=== PATIENT | female | born 1945 | race Asian ===

== ENCOUNTER 2017-01-31 20:35 | Inpatient (IN) | payer MEDICARE, MEDICAID ==
[~2017-01-31] VITALS: Ht 154.9 cm; Wt 66.3 kg
[2017-01-31] MEDS ORDERED: OMEPRAZOLE20 M3 ORAL (21:12)
[2017-01-31] MEDS ORDERED: DULCOLAX10 MG RC (21:12)
[2017-01-31] MEDS ORDERED: NEURONTIN600 MG ORAL (21:12)
[2017-01-31] MEDS ORDERED: SENOKOT8.6 MG PO (21:12)
[2017-01-31] MEDS ORDERED: MILK OF MA400 MG/51 ORAL (21:12)
[2017-01-31] MEDS ORDERED: NORCO 5-325 TA1 EACH ORAL (21:12)
[2017-01-31] MEDS ORDERED: POTASSIUM CHLO10 MEQ ORAL (21:12)
[2017-01-31] MEDS ORDERED: ACETAMINOPHEN325 M1 ORAL (21:12)
[2017-01-31] MEDS ORDERED: COLACE100 MG ORAL (21:12)
[2017-01-31] MEDS ORDERED: ELIQUIS5 MG PO (21:12)
[2017-01-31] MEDS ORDERED: LASIX20 M1 ORAL (21:12)
[2017-01-31] MEDS ORDERED: NORCO 10-325 T1 EACH ORAL (21:12)
[2017-01-31 21:30] VITALS: BP 101/70
[2017-01-31] MEDS ORDERED: D5NS 1,000 ML IV SCH (21:30)
[2017-01-31 21:36] LABS: MEAN CORPUSCULAR HEMOGLOBIN 30.7 PG (27.0-31.0); MEAN CORPUSCULAR HGB CONC 30.4 G/DL (32.0-36.0); MEAN CORPUSCULAR VOLUME 101 FL (80-99); PLATELET COUNT 92 K/UL (150-450); RED BLOOD COUNT 3.42 M/UL (4.20-5.40); RED CELL DISTRIBUTION WIDTH 20.9 % (11.6-14.8); WHITE BLOOD COUNT 19.2 K/UL (4.8-10.8)
[2017-01-31 22:20] LABS: LYMPHOCYTES % (MANUAL) 1 % (20-45); NEUTROPHILS % (MANUAL) 98 % (45-75); TOTAL CELLS COUNTED 100
[2017-01-31 22:21] LABS: BAND NEUTROPHILS % (MANUAL) 0 % (0-8); BASOPHILS % (MANUAL) 0 % (0-2); EOSINOPHILS % (MANUAL) 0 % (0-3); PLATELET ESTIMATE DECREASED
[2017-01-31 22:23] LABS: ANISOCYTOSIS 3+; MACROCYTES 3+; POLYCHROMASIA 1+
[2017-01-31 22:24] LABS: PLATELET MORPHOLOGY NORMAL
[2017-01-31 22:30] LABS: ALANINE AMINOTRANSFERASE 11 U/L (12-78); ALBUMIN/GLOBULIN RATIO 0.2 (1.0-2.7); ANION GAP 6 mmol/L (5-15); ASPARTATE AMINO TRANSFERASE 45 U/L (15-37); CALCIUM 6.9 MG/DL (8.5-10.1); CARBON DIOXIDE 24 MMOL/L (21-32); CHLORIDE 102 MMOL/L (98-107); CREATININE 0.9 MG/DL (0.55-1.30); POTASSIUM 4.5 MMOL/L (3.5-5.1); SODIUM 132 MMOL/L (136-145)
[2017-01-31] MEDS ORDERED: Morphine Sulfate 4mg/ml Inj IVP PRN (22:30)
[2017-01-31 22:39] LABS: CKMB 1.2 NG/ML (0.0-3.6)
[2017-01-31 22:46] VITALS: BP 104/65
--- NOTE | 2017-01-31 22:46 | Emergency Room Report ---
History of Present Illness General Chief Complaint: Abnormal Labs Source: Medical Record Present Illness HPI [id number] BIBEMS from SNF for weakness and associated low blood sugar Went as low as 30 allegedly Patient not eating today No history of DM or insulin use Per paperwork from SNF History of bladder cancer with known mets s/p chemo, b/l ureteter stricture, hydroneph Known anemia, hematuria - thought d/t elliquis for DVT, left extremity KNOWN leukocytosis thought d.t leukoamoid reaction Allergies: Coded Allergies: No Known Allergies (Unverified , 01/31/17) Patient History Past Medical History: other - See HPI Past Surgical History: none Pertinent Family History: none Social History: Denies: smoking, alcohol use, drug use Last Menstrual Period: NA Now: No Immunizations: UTD Reviewed Nursing Documentation: PMH: Agreed, PSxH: Agreed Nursing Documentation-PMH Hx Cancer: Yes - 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 Review of Systems All Other Systems: negative except mentioned in HPI Physical Exam Vital Signs Date Time Temp Pulse Resp B/P (MAP) Pulse Ox O2 Delivery O2 Flow Rate FiO2 01/31/17 20:30 97.3 94 18 126/96 100 Room Air Sp02 EP Interpretation: reviewed, normal General Appearance: normal inspection, well appearing, no apparent distress, alert, GCS 15, non-toxic, cachetic, thin Head: normocephalic, atraumatic Eyes: bilateral eye PERRL, bilateral eye EOMI ENT: normal ENT inspection, hearing grossly normal, normal voice Neck: normal inspection, full range of motion, supple, no bony tend Respiratory: normal inspection, lungs clear, normal breath sounds, no respiratory distress, no retraction, no wheezing Cardiovascular #1: regular rate, rhythm, no edema Gastrointestinal: normal inspection, normal bowel sounds, non tender, soft, no guarding, no hernia Genitourinary: no CVA tenderness Musculoskeletal: normal inspection, back normal, normal range of motion, Latosha' s Sign negative Neurologic: normal inspection, alert, oriented x3, responsive, commercial sales specialist III-XII nml as tested, speech normal Psychiatric: normal inspection, judgement/insight normal, mood/affect normal Skin: normal inspection, normal color, no rash, warm/dry, palpation normal, pallor Medical Decision Making Medicare Attestation I Joelle Oliveira MD hereby attest that the medical record entry for date of service, 01/31/17 accurately reflects signatures/notations that I made in my capacity as MD when I treated/diagnosed the above listed Medicare beneficiary. I attest that this information is true, accurate and complete to the best of my knowledge. I understand that any falsification, omission, or concealment of material fact may subject me to administrative, civil, or criminal liability. This patient warrants hospital admission for extreme of age and has a condition that cannot be treated as outpatient. Diagnostic Impression: Primary Impression: Hypoglycemia Additional Impressions: Weakness FTT (failure to thrive) in adult Neutrophilic leukemoid reaction ER Course VS with tachycardia, likely 2nd to pain Elevated leuks - known leukocytosis thought secondary to leukamoid reaction Afebrile - no obvious source of infection Improved glucose control on D10 drip. Now >300. Analgesia provided Hypoglycemia likely 2nd to FTT, poor appetite in setting of malignancy, mets Endorsed to Dr Francisco at 1033pm for tele admit EKG Diagnostic Results Rate: normal Rhythm: NSR ST Segments: no acute changes ASA given to the pt in ED: No Rhythm Strip Diag. Results EP Interpretation: yes Rate: 102 Rhythm: NSR, no PVC's, no ectopy Last Vital Signs Date Time Temp Pulse Resp B/P (MAP) Pulse Ox O2 Delivery O2 Flow Rate FiO2 01/31/17 20:30 97.3 94 18 126/96 100 Room Air Status: improved Disposition: ADMITTED INPATIENT Condition: Serious Referrals: NON PHYSICIAN (PCP) JEOLLE OLIVEIRA M.D. Jan 31, 2017 22:46
[2017-02-01] VITALS: BP 112/69
[2017-02-01] MEDS: D5NS 1,000 ML IV SCH ×2 (01:50→16:08)
[2017-02-01] MEDS: Norco 5mg/325mg tab ORAL PRN ×3 (02:52→22:31)
[2017-02-01 04:00] VITALS: BP 105/66
--- NOTE | 2017-02-01 04:30 | Consultation ---
DATE OF CONSULTATION: 01/31/2017 CARDIOLOGY CONSULTATION CONSULTING PHYSICIAN: Manuel Francisco M.D. REQUESTING PHYSICIAN: Riley Guzmán M.D. REASON FOR CONSULTATION: Hypotension, hypoglycemia, and tachycardia. HISTORY OF PRESENT ILLNESS: This is an unfortunate 71-year-old [place] female. She resides at a snf facility and has metastatic carcinoma described as advanced disease. She has been receiving chemotherapy. She was notably withdrawn and lethargic today. She had multiple abnormal lab values from her blood tests. She was hypotensive as well as hypoglycemic prior to transfer by 911 and she has had a poor appetite at least for the past day. She was brought to the [facility] emergency room where a diagnostic workup was undertaken and hospitalization initiated. I have been asked to assist with further cardiovascular care. 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 SOCIAL HISTORY: Negative for smoking, alcohol, or substance abuse. ALLERGIES: None. MEDICATIONS: Prior to admission, reviewed and reconciled. FAMILY HISTORY: Noncontributory. REVIEW OF SYSTEMS: There is no prior history of cardiovascular disease or diabetes mellitus. There is no use of oral hypoglycemics or insulin. There is no history of seizure or stroke. She does have neuropathic pain and is on multiple pain medications for that. She had a DVT of her left upper extremity and is on anticoagulants. There is no history of asthma or blood clots in the legs. PHYSICAL EXAMINATION: VITAL SIGNS: Temperature 96.4, blood pressure 101/70, heart rate 96, respiratory rate 18, and room air oxygen saturation 97%. HEENT: Conjunctivae pallor. Oropharynx clear. NECK: Supple. LUNGS: Clear. CARDIAC: Regular rhythm. Rapid rate. Normal S1, S2 with no murmur, rub, or gallop. ABDOMEN: Soft. Mildly tender in the suprapubic region. No guarding or rebound. EXTREMITIES: With no focal edema. LABORATORY AND DIAGNOSTIC DATA: White count is 19.2, hemoglobin 10.5, and platelet count 92,000. There is a left shift. Sodium 132, potassium 4.5, bicarbonate 24, BUN 23, creatinine 0.9, and glucose post is 347, following glucose bolus in the field glucose was 30. Alkaline phosphatase 741, AST and ALT 45/11. Albumin 1.0. IMPRESSION: 1. Hypoglycemia due to poor oral intake and severely reduced protein reserves. 2. Hypovolemic hypotension with early shock. 3. Hyponatremia. 4. Prerenal azotemia. 5. Metastatic bladder cancer with history of ureteral obstruction. 6. Severe protein-calorie malnutrition. 7. Leukocytosis with leftward shift, consider leukemoid reaction versus acute infection. 8. Anemia. 9. History of upper extremity deep vein thrombosis on anticoagulation. 10. Thrombocytopenia. PLAN: 1. Hydration with dextrose. 2. Glucose monitoring. 3. Protein supplement as tolerated. 4. Cautious use of apixaban at lower doses monitoring for signs of bleeding and further drop in platelet count. 5. Check urine studies. 6. Consider empiric antibiotics. 7. Volume resuscitation. 8. POLST has been reviewed and Full Code in place. If appropriate, this will be discussed with family members again. Manuel Francisco M.D. DR: SCOTT JOB#: [id number] CC:
[2017-02-01 07:56] VITALS: BP_SYST 108; BP_SYST 99; BP_DIAS 53; BP_DIAS 68
[2017-02-01 08:00] LABS: MEAN CORPUSCULAR HGB CONC 33.3 G/DL (32.0-36.0); MEAN CORPUSCULAR VOLUME 96 FL (80-99); MEAN PLATELET VOLUME 8.8 FL (6.5-10.1); PLATELET COUNT 105 K/UL (150-450); RED BLOOD COUNT 3.54 M/UL (4.20-5.40); RED CELL DISTRIBUTION WIDTH 22.1 % (11.6-14.8)
[2017-02-01 08:10] LABS: WHITE BLOOD COUNT 23.3 K/UL (4.8-10.8)
[2017-02-01 08:11] LABS: ALANINE AMINOTRANSFERASE 15 U/L (12-78); ALBUMIN/GLOBULIN RATIO 0.2 (1.0-2.7); ANION GAP 7 mmol/L (5-15); ASPARTATE AMINO TRANSFERASE 60 U/L (15-37); CALCIUM 7.7 MG/DL (8.5-10.1); CARBON DIOXIDE 27 MMOL/L (21-32); CHLORIDE 98 MMOL/L (98-107); SODIUM 132 MMOL/L (136-145); TOTAL PROTEIN 6.7 G/DL (6.4-8.2)
[2017-02-01] MEDS: Eliquis 2.5mg tablet ORAL SCH ×2 (08:40→17:12)
[2017-02-01] MEDS: Docusate 250mg cap ORAL SCH ×2 (08:40→17:12)
[2017-02-01 08:49] LABS: BAND NEUTROPHILS % (MANUAL) 0 % (0-8); BASOPHILS % (MANUAL) 0 % (0-2); EOSINOPHILS % (MANUAL) 0 % (0-3); LYMPHOCYTES % (MANUAL) 2 % (20-45); NEUTROPHILS % (MANUAL) 95 % (45-75); PLATELET ESTIMATE DECREASED; TOTAL CELLS COUNTED 100
[2017-02-01 08:50] LABS: ANISOCYTOSIS 3+; HYPOCHROMASIA 1+; PLATELET MORPHOLOGY NORMAL
[2017-02-01 10:55] LABS: APPEARANCE,URINE VERY CLOUDY; KETONES,URINE NEGATIVE (NEGATIVE); LEUKOCYTE ESTERASE ,URINE 3+ (NEGATIVE); NITRITE,URINE NEGATIVE (NEGATIVE); PH,URINE 6 (4.5-8.0); PROTEIN,URINE 3+ (NEGATIVE); UROBILINOGEN,URINE NORMAL MG/DL (0.0-1.0)
[2017-02-01 11:02] LABS: AMORPHOUS SEDIMENT,UR MODERATE /LPF; BACTERIA,URINE MODERATE /HPF; RBC,URINE TNTC /HPF (0 - 2); SQUAMOUS EPITHELIAL CELL,UR MODERATE /LPF (NONE/OCC); WBC,URINE TNTC /HPF (0 - 2)
--- NOTE | 2017-02-01 11:07 | Wound Care Consultation ---
Wound Assessment Wound Assessment #1: Wound Number: 1 Wound Present on Admission: Yes New Wound: No Status Change of Wound: No Wound Location Body Site Modif: mid Wound Location Body Site: sacral Wound Type: pressure ulcer Nohemy Test: Does not Nohemy Pressure Ulcer Stage: Unstageable Wound Thickness: Full Thickness Wound Length: 3.5 Wound Width: 4.5 Wound Depth: utd Percent of Wound [place]/Red: 60 Percent of Wound Bed Yellow/Wh: 40 Wound Drainage Description: Serosanguineous Wound Drainage Amount: Moderate Wound Drainage Odor: None/Absent Tissue Surrounding Wound: Macerated Wound General Appearance: Reddened - yellow Wound Assessment #2: Wound Number: 2 Wound Present on Admission: Yes New Wound: No Status Change of Wound: No Wound Location Body Site Modif: left, upper, posterior Wound Location Body Site: thigh Wound Type: blister - open blister Nohemy Test: Does not Nohemy Pressure Ulcer Stage: II Wound Thickness: Partial Thickness Wound Length: 0.2 Wound Width: 1.0 Wound Depth: less than 0.1 Percent of Wound [place]/Red: 100 Wound Drainage Description: Serosanguineous Wound Drainage Amount: Scant Wound Drainage Odor: None/Absent Tissue Surrounding Wound: Erythemic Wound General Appearance: Reddened Wound Assessment #3: Wound Number: 3 Wound Present on Admission: Yes New Wound: No Status Change of Wound: No Wound Location Body Site Modif: right, anterior Wound Location Body Site: knee Wound Type: scab Nohemy Test: Does not Nohemy Wound Thickness: Full Thickness Wound Length: 1.5 Wound Width: 1.0 Wound Depth: utd Percent of Wound Bed Yellow/Wh: 100 - dry Wound Drainage Amount: None Wound Drainage Odor: None/Absent Tissue Surrounding Wound: Intact Wound General Appearance: Asymptomatic Wound Comment #1 Sacral unstageable pressure ulcer #2 Left posterior thigh open blister #3 Dry scab on anterior knee Recommendation -Sacral unstageable pressure ulcer Cleanse with saline, pat dry, apply skin barrier film to nahed wound area, apply Therahoney gel to wound bed, cover with Biatain silicone drg daily and PRN soiled/dislodged -Left posterior thigh open blister Local wound care per protocol -Keep clean and dry -Turn and reposition -Low air loss P200 mattress -Offload both heels -Heel protector on both heels -Optimize nutrition -Assess and f/u accordingly for any changes CARL JUNG RN Feb 01, 2017 11:07
[2017-02-01 11:44] VITALS: BP 102/43
--- NOTE | 2017-02-01 13:00 | Diagnostic Imaging Report ---
Indication: Dyspnea Comparison: None A single view chest radiograph was obtained. Findings: Retrocardiac density noted. Heart size is normal. There is a left PICC line in good position with the tip in the right atrium. Bones are osteopenic. Surgical clips noted in the right axilla. Impression: Retrocardiac density. Atelectasis versus pneumonia.
--- NOTE | 2017-02-01 15:36 | Cardiology Report ---
APPROVED REPORT EKG Measurement Heart [id number] Sinus tachycardia Low voltage QRS Nonspecific T wave abnormality Abnormal ECG
[2017-02-01 15:43] VITALS: BP 96/67
--- NOTE | 2017-02-01 17:45 | History and Physical Report ---
DATE OF ADMISSION: 01/31/2017 CHIEF COMPLAINT: Hyperglycemia, failure to thrive, and hypotension. HISTORY OF PRESENT ILLNESS: The patient is an unfortunate 71-year-old female. She has a history of metastatic bladder cancer, has been apparently receiving chemotherapy. She has a history of hydronephrosis, status post bilateral ureteral stents, DVT, anemia, and chronic pain who presented to the emergency room with complaints of hyperglycemia, lethargy, and weakness. On evaluation in the emergency room, the patient's blood sugar was 347. She had a sodium of 132 and white count of 20,000. The patient has been started on IV hydration and is now admitted for further evaluation and care. The patient currently without complaints. She seems somewhat withdrawn. She has told the nurse that she wants to "." PAST MEDICAL HISTORY: As above. PAST SURGICAL HISTORY: History of ureteral stents and history of lumpectomy. CURRENT MEDICATIONS: Reconciled and reviewed. ALLERGIES: None. FAMILY HISTORY: None. SOCIAL HISTORY: There is no known history of tobacco, ethanol, or drugs. REVIEW OF SYSTEMS: From the patient is unobtainable as the patient is minimally verbal. PHYSICAL EXAMINATION: VITAL SIGNS: Temperature 97, blood pressure 99/68, pulse of 100, and respirations 21. GENERAL: The patient is well-developed, thin, chronically ill-appearing female, in no apparent distress. HEENT: Her pupils are equal, round, and reactive to light. Oropharynx clear. NECK: Supple. HEART: Regular rate and rhythm. LUNGS: Clear. ABDOMEN: Soft, nontender, and nondistended. EXTREMITIES: Significant for 1 to 2+ pitting edema. LABORATORY DATA: White count was 20,000, hemoglobin of 10, and platelets of 92. Sodium 132 and creatinine was 0.9. ASSESSMENT: 1. This is an unfortunate female with a history of metastatic bladder cancer, on chemo, admitted with generalized weakness, suspect multifactorial secondary to dehydration. 2. The patient has underlying disease, on chemotherapy and treatment, cannot rule out an underlying infection. PLAN: Check cultures. Check urinalysis. Consider antibiotics. The patient's overall prognosis appear extremely poor. Riley Guzmán M.D. DR: NED/SALLIE JOB#: [id number] CC:
[2017-02-01 20:00] VITALS: BP 96/51
[2017-02-02] VITALS: BP 100/64
[2017-02-02] MEDS: Zosyn 3.375gm/50ml Premix 50 ML IVPB SCH ×3 (02:30→17:53)
--- NOTE | 2017-02-02 02:45 | Progress Note ---
DATE: 02/01/2017 CARDIOLOGY PROGRESS NOTE SUBJECTIVE: The patient remains withdrawn, lethargic and depressed. She has been on IV fluid hydration. Her glucose is stabilized on dextrose infusion. OBJECTIVE: VITAL SIGNS: Blood pressure 96/67, pulse 105, respirations 18, and afebrile. LUNGS: Bilateral breath sounds. HEART: Regular rhythm. Rapid rate. Normal S1 and S2. ABDOMEN: Soft and nontender. EXTREMITIES: There is trace dependent edema. LABORATORY DATA: White count is 23.3 and hemoglobin 11.3. Urinalysis with too numerous to count white cells. Sodium 132, potassium 5, bicarbonate 27, BUN 22, and creatinine 1.0. Albumin 1.3. IMPRESSION: 1. Urinary tract infection. 2. Encephalopathy. 3. History of upper extremity deep vein thrombosis on anticoagulation. 4. Leukocytosis. 5. Metastatic bladder cancer. 6. History of leukemoid reaction. 7. Possible sepsis due to urinary tract infection. 8. Depression due to acute illness. PLAN: 1. Continued hydration. 2. Monitor glucose. 3. Encouraged oral intake. 4. Empiric antibiotics. 5. Pain control. 6. Advance directives will be addressed. Manuel Francisco M.D. DR: MARK JOB#: [id number] CC:
[2017-02-02 04:00] VITALS: BP 111/71
[2017-02-02] MEDS: D5NS 1,000 ML IV SCH ×2 (04:20→17:52)
[2017-02-02 07:38] LABS: MEAN CORPUSCULAR HEMOGLOBIN 30.7 PG (27.0-31.0); MEAN CORPUSCULAR HGB CONC 30.1 G/DL (32.0-36.0); MEAN CORPUSCULAR VOLUME 102 FL (80-99); MEAN PLATELET VOLUME 9.1 FL (6.5-10.1); PLATELET COUNT 72 K/UL (150-450); RED BLOOD COUNT 3.42 M/UL (4.20-5.40); RED CELL DISTRIBUTION WIDTH 21.7 % (11.6-14.8)
[2017-02-02 07:47] LABS: WHITE BLOOD COUNT 25.9 K/UL (4.8-10.8)
[2017-02-02 07:53] LABS: ALANINE AMINOTRANSFERASE 14 U/L (12-78); ALBUMIN/GLOBULIN RATIO 0.2 (1.0-2.7); ANION GAP 12 mmol/L (5-15); ASPARTATE AMINO TRANSFERASE 50 U/L (15-37); CALCIUM 7.3 MG/DL (8.5-10.1); CARBON DIOXIDE 22 MMOL/L (21-32); CHLORIDE 101 MMOL/L (98-107); CREATININE 0.9 MG/DL (0.55-1.30); POTASSIUM 4.6 MMOL/L (3.5-5.1); SODIUM 135 MMOL/L (136-145); TOTAL PROTEIN 6.2 G/DL (6.4-8.2)
[2017-02-02 08:00] VITALS: BP 106/72
[2017-02-02] MEDS: Docusate 250mg cap ORAL SCH ×3 (09:18→18:00)
[2017-02-02] MEDS: Eliquis 2.5mg tablet ORAL SCH ×3 (09:19→18:00)
[2017-02-02 10:51] LABS: ANISOCYTOSIS 3+; BAND NEUTROPHILS % (MANUAL) 0 % (0-8); BASOPHILS % (MANUAL) 0 % (0-2); EOSINOPHILS % (MANUAL) 0 % (0-3); HYPOCHROMASIA 1+; LYMPHOCYTES % (MANUAL) 13 % (20-45); MACROCYTES 1+; NEUTROPHILS % (MANUAL) 86 % (45-75); PLATELET ESTIMATE DECREASED; PLATELET MORPHOLOGY NORMAL; TOTAL CELLS COUNTED 100
[2017-02-02 12:00] VITALS: BP_SYST 134; BP_SYST 92; BP_DIAS 59; BP_DIAS 64
--- NOTE | 2017-02-02 12:23 | General Progress Note ---
Assessment/Plan Problem List: (1) Neutrophilic leukemoid reaction ICD Codes: D72.823 - Leukemoid reaction SNOMED: 02989193 (2) Weakness ICD Codes: R53.1 - Weakness SNOMED: 78597764 (3) FTT (failure to thrive) in adult ICD Codes: R62.7 - Adult failure to thrive SNOMED: 913363511 (4) Hypoglycemia ICD Codes: E16.2 - Hypoglycemia, unspecified SNOMED: 198425590 Status: stable, progressing Assessment/Plan iv abx follow up cultures encourage pos monitor labs Subjective ROS Limited/Unobtainable: No Constitutional: Reports: malaise, weakness HEENT: Reports: no symptoms Cardiovascular: Reports: no symptoms Respiratory: Reports: no symptoms Gastrointestinal/Abdominal: Reports: poor appetite Genitourinary: Reports: no symptoms Neurologic/Psychiatric: Reports: no symptoms Endocrine: Reports: no symptoms Hematologic/Lymphatic: Reports: anemia Allergies: Coded Allergies: No Known Allergies (Unverified , 01/31/17) All Systems: reviewed and negative except above Subjective no events. wbc worse. ucx with gnr Objective Last 24 Hour Vital Signs Date Time Temp Pulse Resp B/P (MAP) Pulse Ox O2 Delivery O2 Flow Rate FiO2 02/02/17 08:00 113 02/02/17 08:00 97.0 117 20 106/72 99 Room Air 02/02/17 04:00 84 02/02/17 04:00 97.7 93 22 111/71 97 Room Air 02/02/17 00:00 94 02/02/17 00:00 97.9 97 18 100/64 98 Room Air 02/01/17 23:30 97.5 02/01/17 20:00 104 02/01/17 20:00 108 18 96/51 94 Room Air 02/01/17 20:00 97.5 108 18 96/51 Room Air 02/01/17 16:00 109 02/01/17 15:43 97.2 105 18 96/67 95 Room Air Laboratory Tests 02/02/17 07:05: White Blood Count 25.9*H, Red Blood Count 3.42L, Hemoglobin 10.5L, Hematocrit 34.8L, Mean Corpuscular Volume 102H, Mean Corpuscular Hemoglobin 30.7, Mean Corpuscular Hemoglobin Concent 30.1L, Red Cell Distribution Width 21.7H, Platelet Count 72L, Mean Platelet Volume 9.1, Neutrophils (%) (Auto) , Lymphocytes (%) (Auto) , Monocytes (%) (Auto) , Eosinophils (%) (Auto) , Basophils (%) (Auto) , Differential Total Cells Counted 100, Neutrophils % ( Manual) 86H, Lymphocytes % (Manual) 13L, Monocytes % (Manual) 1, Eosinophils % ( Manual) 0, Basophils % (Manual) 0, Band Neutrophils 0, Platelet Estimate DecreasedL, Platelet Morphology Normal, Hypochromasia 1+, Anisocytosis 3+, Macrocytosis 1+, Sodium Level 135L, Potassium Level 4.6, Chloride Level 101, Carbon Dioxide Level 22, Anion Gap 12, Blood Urea Nitrogen 19H, Creatinine 0.9, Estimat Glomerular Filtration Rate , Glucose Level 147H, Calcium Level 7.3L, Total Bilirubin 1.0, Aspartate Amino Transf (AST/SGOT) 50H, Alanine Aminotransferase (ALT/SGPT) 14, Alkaline Phosphatase 849H, Total Protein 6.2L, Albumin 1.2L, Globulin 5.0, Albumin/Globulin Ratio 0.2L Height (Feet): 5 Height (Inches): 1.00 Weight (Pounds): 120 General Appearance: WD/WN, alert Neck: supple Cardiovascular: regular rhythm Respiratory/Chest: chest wall non-tender, lungs clear, normal breath sounds, no respiratory distress Abdomen: normal bowel sounds, non tender, soft, no organomegaly Edema: no edema noted Arm (L), no edema noted Arm (R), no edema noted Leg (L), no edema noted Leg (R), no edema noted Pedal (L), no edema noted Pedal (R), no edema noted Generalized Edema: trace edema HONG REYES Feb 02, 2017 12:23
[2017-02-02 16:00] VITALS: BP 103/73
[2017-02-02] MEDS ORDERED: Tubing IV Secondary IV ONE (17:00)
[2017-02-02] MEDS ORDERED: D5NS 1000ml IV ONE (17:00)
--- NOTE | 2017-02-02 18:45 | Consultation ---
DATE OF CONSULTATION: 02/02/2017 INFECTIOUS DISEASES CONSULTATION CONSULTING PHYSICIAN: Anthony Machuca M.D. This consultation is for coverage of Murali Galvan M.D. PRIMARY ATTENDING PHYSICIAN: Riley Guzmán M.D. REASON FOR CONSULTATION: UTI. HISTORY OF PRESENT ILLNESS: This is a 71-year-old female admitted on 01/31/2017 of [facility] with hypoglycemia, had low blood sugar, lethargy, and was hypotensive and tachycardic. The patient has a known history of metastatic bladder cancer on chemotherapy. PAST MEDICAL HISTORY: Metastatic bladder cancer, anemia, thrombocytopenia, deep venin thrombosis, hydronephrosis, and bilateral ureteral stent placement. MEDICATIONS: Zosyn, Protonix, Colace, Apixaban, gabapentin, hydromorphone, Tylenol, Antoine. ALLERGIES: No known drug allergies. SOCIAL HISTORY: The [facility] currently is a [facility] resident. REVIEW OF SYSTEMS: Poor appetite. Very limited information can be obtained by the patient. PHYSICAL EXAMINATION: GENERAL: Since admission was afebrile. VITAL SIGNS: Temperature 97, pulse is 117, and blood pressure 106/72. HEAD AND NECK: Slightly dry mouth. [place] conjunctivae. HEART: Tachycardic. LUNGS: Clear. ABDOMEN: Soft. EXTREMITIES: Has edema of legs. NEUROLOGIC: Awake, alert. Obey simple commands, answering by nodding of the head. LABORATORY DATA: WBC 25.9, hemoglobin 10.5, hematocrit 34.8, platelet is 72. Sodium 135, potassium 4.6, chloride 101, bicarbonate 22, BUN 19, creatinine 0.9, glucose is 147. Alkaline phosphatase is 849. Albumin is 1.2. Urine culture growing gram-negative rods. Chest x-ray showed atelectasis or pneumonia, retrocardiac opacities. There is a left arm PICC line seen on the chest x-ray. IMPRESSION: 1. Urinary tract infection. 2. Atelectasis verses pneumonia. 3. Metastatic bladder cancer. 4. Immune deficiency secondary to chemotherapy. 5. Anemia. 6. Thrombocytopenia. 7. Protein malnutrition. RECOMMENDATION: We will continue with Zosyn. We will follow up the cultures. At the end of my exam, I thank Dr. Guzmán and Dr. Francisco for involving me in the care of this patient. Anthony Machuca M.D. DR: Charlene JOB#: [id number] CC:
[2017-02-02] MEDS ORDERED: Gentamicin 100mg/50ml Premix 50 ML IVPB ONE (20:00)
[2017-02-02 20:32] VITALS: BP 98/76
[2017-02-03] VITALS (7 sets, daily range): BP systolic 87–107; BP diastolic 65–72
--- NOTE | 2017-02-03 01:30 | Progress Note ---
DATE: 02/02/2017 CARDIOLOGY PROGRESS NOTE SUBJECTIVE: The patient continues to have rising white count. Urine culture is positive. The patient remains withdrawn and lethargic. Glucose levels are stable. Oral intake is poor. Blood pressure has stabilized. Still with episodes of sinus tachycardia. OBJECTIVE: VITAL SIGNS: Blood pressure 106/72, pulse 117, respirations 20, and afebrile. LUNGS: Bilateral breath sounds. HEART: Regular rhythm. Rapid rate. Normal S1 and S2. ABDOMEN: Soft. Mildly tender in the suprapubic region. EXTREMITIES: No edema. LABORATORY DATA: Sodium 135, potassium 4.6, bicarbonate 22, BUN 19, and creatinine 0.9. Albumin 1.2. White count 25.9 and hemoglobin 10.5. IMPRESSION: 1. Metastatic carcinoma of the bladder. 2. Urinary tract infection with sepsis. 3. Worsening leukocytosis, question of leukemoid reaction in conjunction with sepsis. 4. Hypotension resolving due to shock from both sepsis and hypovolemia. 5. Secondary sinus tachycardia. 6. Hypoglycemia due to sepsis and poor oral intake. PLAN: 1. Hydration. 2. Antimicrobials will be broad and pending cultures. 3. Continue cardiac monitoring. 4. Pain control. 5. Continue dextrose infusion until intake improves. Manuel Francisco M.D. DR: MARK JOB#: [id number] CC:
[2017-02-03] MEDS: Zosyn 3.375gm/50ml Premix 50 ML IVPB SCH ×2 (02:38→09:32)
[2017-02-03] MEDS: D5NS 1,000 ML IV SCH ×2 (06:48→22:01)
[2017-02-03 08:14] LABS: MEAN CORPUSCULAR HEMOGLOBIN 31.3 PG (27.0-31.0); MEAN CORPUSCULAR HGB CONC 30.6 G/DL (32.0-36.0); MEAN CORPUSCULAR VOLUME 102 FL (80-99); MEAN PLATELET VOLUME 10.1 FL (6.5-10.1); PLATELET COUNT 71 K/UL (150-450); RED BLOOD COUNT 3.02 M/UL (4.20-5.40); RED CELL DISTRIBUTION WIDTH 22.7 % (11.6-14.8)
[2017-02-03 08:53] LABS: ALANINE AMINOTRANSFERASE 12 U/L (12-78); ALBUMIN/GLOBULIN RATIO 0.2 (1.0-2.7); ANION GAP 13 mmol/L (5-15); ASPARTATE AMINO TRANSFERASE 50 U/L (15-37); CALCIUM 7.2 MG/DL (8.5-10.1); CARBON DIOXIDE 22 MMOL/L (21-32); CHLORIDE 102 MMOL/L (98-107); POTASSIUM 4.3 MMOL/L (3.5-5.1); SODIUM 137 MMOL/L (136-145); TOTAL PROTEIN 5.7 G/DL (6.4-8.2)
[2017-02-03] MEDS: Eliquis 2.5mg tablet ORAL SCH ×2 (09:00→17:15)
[2017-02-03] MEDS: Docusate 250mg cap ORAL SCH ×2 (09:00→17:15)
--- NOTE | 2017-02-03 09:20 | General Progress Note ---
Assessment/Plan Problem List: (1) Neutrophilic leukemoid reaction ICD Codes: D72.823 - Leukemoid reaction SNOMED: 12841424 (2) Weakness ICD Codes: R53.1 - Weakness SNOMED: 72450613 (3) FTT (failure to thrive) in adult ICD Codes: R62.7 - Adult failure to thrive SNOMED: 560050323 (4) Hypoglycemia ICD Codes: E16.2 - Hypoglycemia, unspecified SNOMED: 179132504 Status: stable, progressing Assessment/Plan iv abx follow up cultures encourage pos monitor labs Subjective ROS Limited/Unobtainable: Yes Constitutional: Reports: malaise, weakness HEENT: Reports: no symptoms Cardiovascular: Reports: no symptoms Respiratory: Reports: no symptoms Gastrointestinal/Abdominal: Reports: poor appetite Genitourinary: Reports: no symptoms Neurologic/Psychiatric: Reports: no symptoms Endocrine: Reports: no symptoms Hematologic/Lymphatic: Reports: anemia Allergies: Coded Allergies: No Known Allergies (Unverified , 01/31/17) All Systems: reviewed and negative except above Subjective no events. wbc remains elevated. no new complaints. poor po intake. Objective Last 24 Hour Vital Signs Date Time Temp Pulse Resp B/P (MAP) Pulse Ox O2 Delivery O2 Flow Rate FiO2 02/03/17 08:00 97.8 58 21 95/70 93 Room Air 02/03/17 06:58 108 18 97/68 96 Room Air 02/03/17 04:45 97.5 113 18 87/65 100 Room Air 02/03/17 04:05 101 02/03/17 00:00 99.7 116 18 99/68 97 Room Air 02/02/17 23:55 108 02/02/17 20:32 98.2 133 18 98/76 95 Room Air 02/02/17 19:17 115 02/02/17 16:00 97.0 121 20 103/73 95 Room Air 02/02/17 16:00 134 02/02/17 12:00 119 02/02/17 12:00 97.0 118 19 92/59 95 Room Air Laboratory Tests 02/03/17 07:30: White Blood Count 24.0*H, Red Blood Count 3.02L, Hemoglobin 9.4L, Hematocrit 30.9L, Mean Corpuscular Volume 102H, Mean Corpuscular Hemoglobin 31.3H, Mean Corpuscular Hemoglobin Concent 30.6L, Red Cell Distribution Width 22.7H, Platelet Count 71L, Mean Platelet Volume 10.1, Neutrophils (%) (Auto) , Lymphocytes (%) (Auto) , Monocytes (%) (Auto) , Eosinophils (%) (Auto) , Basophils (%) (Auto) , Neutrophils % (Manual) [Pending], Lymphocytes % (Manual) [Pending], Platelet Estimate [Pending], Platelet Morphology [Pending], Sodium Level 137, Potassium Level 4.3, Chloride Level 102, Carbon Dioxide Level 22, Anion Gap 13, Blood Urea Nitrogen 18, Creatinine 1.0, Estimat Glomerular Filtration Rate , Glucose Level 103, Calcium Level 7.2L, Magnesium Level 1.9, Total Bilirubin 0.9, Aspartate Amino Transf (AST/SGOT) 50H, Alanine Aminotransferase (ALT/SGPT) 12, Alkaline Phosphatase 724H, Total Protein 5.7L, Albumin 1.1L, Globulin 4.6, Albumin/Globulin Ratio 0.2L Height (Feet): 5 Height (Inches): 1.00 Weight (Pounds): 120 Objective General Appearance: WD/WN, alert Neck: supple Cardiovascular: regular rhythm Respiratory/Chest: chest wall non-tender, lungs clear, normal breath sounds, no respiratory distress Abdomen: normal bowel sounds, non tender, soft, no organomegaly Edema: no edema noted Arm (L), no edema noted Arm (R), no edema noted Leg (L), no edema noted Leg (R), no edema noted Pedal (L), no edema noted Pedal (R), no edema noted Generalized Edema: trace edema HONG REYES Feb 03, 2017 09:20
[2017-02-03 09:56] LABS: BAND NEUTROPHILS % (MANUAL) 0 % (0-8); BASOPHILS % (MANUAL) 0 % (0-2); EOSINOPHILS % (MANUAL) 0 % (0-3); LYMPHOCYTES % (MANUAL) 4 % (20-45); NEUTROPHILS % (MANUAL) 95 % (45-75); PLATELET ESTIMATE DECREASED; PLATELET MORPHOLOGY NORMAL; TOTAL CELLS COUNTED 100
[2017-02-03] MEDS ORDERED: D5NS 1000ml IV ONE (11:33)
[2017-02-03] MEDS ORDERED: Tubing IV Secondary IV ONE (11:33)
--- NOTE | 2017-02-03 12:28 | Infectious Diseases Prog Note ---
Assessment/Plan Assessment/Plan antibiotics : zosyn A 1. citrobacter UTI 2. pneumonia 3. metastatic bladder cancer 4. leucocytosis 5. thrombocytopenia 6. rectal VRE colonization P 1. d/c zosyn 2. start ceftriaxone 3. will follow up cultures Subjective ROS Limited/Unobtainable: Yes Allergies: Coded Allergies: No Known Allergies (Unverified , 01/31/17) Objective Vital Signs Last 24 Hour Vital Signs Date Time Temp Pulse Resp B/P (MAP) Pulse Ox O2 Delivery O2 Flow Rate FiO2 02/03/17 08:00 97.8 58 21 95/70 93 Room Air 02/03/17 06:58 108 18 97/68 96 Room Air 02/03/17 04:45 97.5 113 18 87/65 100 Room Air 02/03/17 04:05 101 02/03/17 00:00 99.7 116 18 99/68 97 Room Air 02/02/17 23:55 108 02/02/17 20:32 98.2 133 18 98/76 95 Room Air 02/02/17 19:17 115 02/02/17 16:00 97.0 121 20 103/73 95 Room Air 02/02/17 16:00 134 Height (Feet): 5 Height (Inches): 1.00 Weight (Pounds): 120 Respiratory/Chest: lungs clear Cardiovascular: normal rate, regular rhythm, no gallop/murmur Abdomen: soft, non tender Extremities: other - + edema Microbiology Date/Time Source Procedure Growth Status 02/01/17 01:00 Wound Gram Stain - Final Resulted 02/01/17 01:00 Wound Culture - Preliminary Gram Negative Bacillus 1 Gram Negative Bacillus 2 Gram Positive Cocci Resulted 01/31/17 22:59 Nasal Nares MRSA Culture - Final NO METHICILLIN RESISTANT STAPH AUREUS... Complete 02/01/17 10:13 Straight Cath Urine Culture - Final Citrobacter Braakii Complete 01/31/17 22:59 Rectum VRE Culture - Final Enterococcus Faecalis - Vre Complete Laboratory Tests Test 02/03/17 07:30 White Blood Count 24.0 K/UL (4.8-10.8) *H Red Blood Count 3.02 M/UL (4.20-5.40) L Hemoglobin 9.4 G/DL (12.0-16.0) L Hematocrit 30.9 % (37.0-47.0) L Mean Corpuscular Volume 102 FL (80-99) H Mean Corpuscular Hemoglobin 31.3 PG (27.0-31.0) H Mean Corpuscular Hemoglobin Concent 30.6 G/DL (32.0-36.0) L Red Cell Distribution Width 22.7 % (11.6-14.8) H Platelet Count 71 K/UL (150-450) L Mean Platelet Volume 10.1 FL (6.5-10.1) Neutrophils (%) (Auto) % (45.0-75.0) Lymphocytes (%) (Auto) % (20.0-45.0) Monocytes (%) (Auto) % (1.0-10.0) Eosinophils (%) (Auto) % (0.0-3.0) Basophils (%) (Auto) % (0.0-2.0) Differential Total Cells Counted 100 Neutrophils % (Manual) 95 % (45-75) H Lymphocytes % (Manual) 4 % (20-45) L Monocytes % (Manual) 1 % (1-10) Eosinophils % (Manual) 0 % (0-3) Basophils % (Manual) 0 % (0-2) Band Neutrophils 0 % (0-8) Platelet Estimate Decreased L Platelet Morphology Normal Sodium Level 137 MMOL/L (136-145) Potassium Level 4.3 MMOL/L (3.5-5.1) Chloride Level 102 MMOL/L (98-107) Carbon Dioxide Level 22 MMOL/L (21-32) Anion Gap 13 mmol/L (5-15) Blood Urea Nitrogen 18 mg/dL (7-18) Creatinine 1.0 MG/DL (0.55-1.30) Estimat Glomerular Filtration Rate mL/min (>60) Glucose Level 103 MG/DL (74-106) Calcium Level 7.2 MG/DL (8.5-10.1) L Magnesium Level 1.9 MG/DL (1.8-2.4) Total Bilirubin 0.9 MG/DL (0.2-1.0) Aspartate Amino Transf (AST/SGOT) 50 U/L (15-37) H Alanine Aminotransferase (ALT/SGPT) 12 U/L (12-78) Alkaline Phosphatase 724 U/L (46-116) H Total Protein 5.7 G/DL (6.4-8.2) L Albumin 1.1 G/DL (3.4-5.0) L Globulin 4.6 g/dL Albumin/Globulin Ratio 0.2 (1.0-2.7) L KAMAR MOSLEY Feb 03, 2017 12:28
[2017-02-03] MEDS: cefTRIAXone 1 GM in D5W 55 ML IVPB SCH (15:17)
--- NOTE | 2017-02-03 23:01 | Progress Note ---
DATE: 02/03/2017 CARDIOLOGY PROGRESS NOTE SUBJECTIVE: The patient remains without complaints, but is depressed. She has poor oral intake and continues to have leukocytosis, on antimicrobials. OBJECTIVE: VITAL SIGNS: Blood pressure 97/68, pulse 108, respirations 18, and afebrile. HEENT: Temporal wasting. Pale conjunctivae. Oropharynx clear. NECK: Supple. LUNGS: Clear. CARDIAC: Regular rhythm and rate. Normal S1 and S2 with a fourth heart sound. ABDOMEN: Soft. EXTREMITIES: No edema. Wound is pictured. LABORATORY DATA: Cultures of the wound are positive. Urine is positive for Citrobacter. White count 24, hemoglobin 9.4. BUN 18, creatinine 1. Albumin 1.1. IMPRESSION: 1. Metabolic and toxic encephalopathy. 2. Metastatic bladder carcinoma. 3. Severe protein-calorie malnutrition. 4. Sepsis with shock. 5. Leukocytosis. 6. Anemia. 7. Wound infection. PLAN: 1. Antimicrobials. 2. Skin care. 3. Volume support. 4. Protein supplements. Manuel Francisco M.D. DR: Everton JOB#: [id number] CC:
[2017-02-04] VITALS: BP 86/54
[2017-02-04 04:00] VITALS: BP 100/60
[2017-02-04 08:00] VITALS: BP 111/72
--- NOTE | 2017-02-04 09:31 | General Progress Note ---
Assessment/Plan Problem List: (1) Neutrophilic leukemoid reaction ICD Codes: D72.823 - Leukemoid reaction SNOMED: 75329854 (2) Weakness ICD Codes: R53.1 - Weakness SNOMED: 68272695 (3) FTT (failure to thrive) in adult ICD Codes: R62.7 - Adult failure to thrive SNOMED: 480542004 (4) Hypoglycemia ICD Codes: E16.2 - Hypoglycemia, unspecified SNOMED: 285640131 Status: stable, not improved Assessment/Plan iv abxm per ID follow up cultures encourage pos monitor labs poor prognosis Subjective ROS Limited/Unobtainable: Yes Constitutional: Reports: malaise, weakness HEENT: Reports: no symptoms Cardiovascular: Reports: no symptoms Respiratory: Reports: no symptoms Gastrointestinal/Abdominal: Reports: abdomen distended Genitourinary: Reports: no symptoms Neurologic/Psychiatric: Reports: no symptoms Endocrine: Reports: no symptoms Hematologic/Lymphatic: Reports: anemia Allergies: Coded Allergies: No Known Allergies (Unverified , 01/31/17) All Systems: reviewed and negative except above Subjective no events. wbc remains elevated. no new complaints. poor po intake- refusing po meds also. ID noted. Objective Last 24 Hour Vital Signs Date Time Temp Pulse Resp B/P (MAP) Pulse Ox O2 Delivery O2 Flow Rate FiO2 02/04/17 08:00 97.9 108 18 111/72 92 Room Air 02/04/17 04:00 105 02/04/17 04:00 97.5 106 16 100/60 96 Room Air 02/04/17 00:00 97.6 61 16 86/54 100 Room Air 02/04/17 00:00 100 02/03/17 20:00 114 02/03/17 20:00 97.6 113 16 101/72 97 Room Air 02/03/17 16:00 108 02/03/17 16:00 97.6 112 20 107/69 94 Room Air 02/03/17 12:00 99 02/03/17 12:00 97.1 109 20 100/67 95 Room Air Height (Feet): 5 Height (Inches): 1.00 Weight (Pounds): 120 Objective General Appearance: WD/WN, alert Neck: supple Cardiovascular: regular rhythm Respiratory/Chest: chest wall non-tender, lungs clear, normal breath sounds, no respiratory distress Abdomen: normal bowel sounds, non tender, soft, no organomegaly Edema: no edema noted Arm (L), no edema noted Arm (R), no edema noted Leg (L), no edema noted Leg (R), no edema noted Pedal (L), no edema noted Pedal (R), no edema noted Generalized Edema: trace edema HONG REYES Feb 04, 2017 09:31
[2017-02-04] MEDS: Eliquis 2.5mg tablet ORAL SCH ×2 (09:35→17:13)
[2017-02-04] MEDS: Docusate 250mg cap ORAL SCH ×2 (09:40→17:13)
[2017-02-04] MEDS: D5NS 1,000 ML IV SCH ×2 (09:41→23:37)
[2017-02-04] MEDS: HYDROmorphone 1mg/ml Carpuject IVP PRN ×2 (11:07→22:04)
--- NOTE | 2017-02-04 11:43 | Infectious Diseases Prog Note ---
Assessment/Plan Assessment/Plan antibiotics : ceftriaxone A 1. citrobacter UTI 2. pneumonia 3. metastatic bladder cancer 4. leucocytosis 5. thrombocytopenia 6. rectal VRE colonization P 1. continue ceftriaxone 2. stool for c.diff 3. will follow up cultures Subjective Constitutional: Denies: fever, chills Respiratory: Denies: shortness of breath, dry cough Gastrointestinal/Abdominal: Reports: diarrhea, Denies: nausea, vomiting Musculoskeletal: Reports: pain Allergies: Coded Allergies: No Known Allergies (Unverified , 01/31/17) Objective Vital Signs Last 24 Hour Vital Signs Date Time Temp Pulse Resp B/P (MAP) Pulse Ox O2 Delivery O2 Flow Rate FiO2 02/04/17 08:00 97.9 108 18 111/72 92 Room Air 02/04/17 08:00 106 02/04/17 04:00 105 02/04/17 04:00 97.5 106 16 100/60 96 Room Air 02/04/17 00:00 97.6 61 16 86/54 100 Room Air 02/04/17 00:00 100 02/03/17 20:00 114 02/03/17 20:00 97.6 113 16 101/72 97 Room Air 02/03/17 16:00 108 02/03/17 16:00 97.6 112 20 107/69 94 Room Air 02/03/17 12:00 99 02/03/17 12:00 97.1 109 20 100/67 95 Room Air Height (Feet): 5 Height (Inches): 1.00 Weight (Pounds): 120 Respiratory/Chest: lungs clear Cardiovascular: normal rate, regular rhythm, no gallop/murmur Abdomen: soft, non tender Extremities: other - + edema KAMAR OMSLEY Feb 04, 2017 11:43
[2017-02-04 12:00] VITALS: BP 98/68
[2017-02-04] MEDS: cefTRIAXone 1 GM in D5W 55 ML IVPB SCH (14:14)
[2017-02-04] MEDS ORDERED: D5NS 1000ml IV ONE (16:14)
[2017-02-04 16:40] VITALS: BP 97/75
[2017-02-04 20:00] VITALS: BP 109/77
[2017-02-05] VITALS: BP 94/74
--- NOTE | 2017-02-05 01:15 | Progress Note ---
DATE: 02/04/2017 CARDIOLOGY PROGRESS NOTE SUBJECTIVE: The patient remains with poor appetite, poor oral intake, and frequently refuses oral medication. OBJECTIVE: VITAL SIGNS: The patient remains afebrile. Blood pressure is 111/72, pulse rate 108, respiratory rate 18. The patient is not complaining of any pain. CHEST: Bilateral breath sounds. No wheezing or rales. HEART: Regular rhythm and rate. Normal S1 and S2 with a fourth heart sound. ABDOMEN: Soft. No focal tenderness. EXTREMITIES: Trace edema. LABORATORY DATA: White count is 24 and hemoglobin 9.4. Potassium is 4.2 and magnesium 1.9. Albumin is 1.1. IMPRESSION: 1. Metastatic carcinoma of the bladder. 2. Severe protein-calorie malnutrition. 3. Citrobacter urinary tract infection with sepsis. 4. Persistent leukocytosis, partially due to leukemoid reaction associated with her malignancy. 5. Secondary sinus tachycardia due to low colloid osmotic pressure and intravascular volume deficiency. 6. History of deep venous thrombosis. PLAN: 1. Antimicrobials. 2. Encourage oral intake. 3. Volume support by IV route. 4. Cardioembolic prophylaxis with apixaban. Manuel Francisco M.D. DR: Elayne JOB#: [id number] CC:
[2017-02-05 04:00] VITALS: BP 120/75
[2017-02-05] MEDS: HYDROmorphone 1mg/ml Carpuject IVP PRN (05:50)
[2017-02-05] MEDS: Docusate 250mg cap ORAL SCH ×2 (08:33→17:18)
[2017-02-05 08:34] VITALS: BP 90/68
[2017-02-05] MEDS: Eliquis 2.5mg tablet ORAL SCH ×2 (08:34→17:07)
--- NOTE | 2017-02-05 09:20 | General Progress Note ---
Assessment/Plan Problem List: (1) Neutrophilic leukemoid reaction ICD Codes: D72.823 - Leukemoid reaction SNOMED: 55587810 (2) Weakness ICD Codes: R53.1 - Weakness SNOMED: 46707023 (3) FTT (failure to thrive) in adult ICD Codes: R62.7 - Adult failure to thrive SNOMED: 820579893 (4) Hypoglycemia ICD Codes: E16.2 - Hypoglycemia, unspecified SNOMED: 521377508 Status: stable, progressing Assessment/Plan iv abx per ID follow up cultures encourage pos. will down grade to puree monitor labs poor prognosis Subjective ROS Limited/Unobtainable: Yes Constitutional: Reports: malaise, weakness HEENT: Reports: no symptoms Cardiovascular: Reports: no symptoms Respiratory: Reports: no symptoms Gastrointestinal/Abdominal: Reports: no symptoms Genitourinary: Reports: no symptoms Neurologic/Psychiatric: Reports: no symptoms Endocrine: Reports: no symptoms Hematologic/Lymphatic: Reports: no symptoms Allergies: Coded Allergies: No Known Allergies (Unverified , 01/31/17) All Systems: reviewed and negative except above Subjective no events. wbc remains elevated. no new complaints. refusing to eat. on iv abx. Objective Last 24 Hour Vital Signs Date Time Temp Pulse Resp B/P (MAP) Pulse Ox O2 Delivery O2 Flow Rate FiO2 02/05/17 08:34 96.3 114 18 90/68 94 Room Air 02/05/17 04:00 97.0 110 20 120/75 96 Room Air 02/05/17 04:00 111 02/05/17 00:00 112 02/05/17 00:00 97.5 115 20 94/74 95 Room Air 02/04/17 20:00 97.9 111 20 109/77 98 Room Air 02/04/17 20:00 111 02/04/17 16:40 97.5 112 18 97/75 99 Room Air 02/04/17 16:00 111 02/04/17 12:00 110 02/04/17 12:00 97.7 107 18 98/68 96 Room Air Height (Feet): 5 Height (Inches): 1.00 Weight (Pounds): 120 Objective General Appearance: WD/WN, alert Neck: supple Cardiovascular: regular rhythm Respiratory/Chest: chest wall non-tender, lungs clear, normal breath sounds, no respiratory distress Abdomen: normal bowel sounds, non tender, soft, no organomegaly Edema: no edema noted Arm (L), no edema noted Arm (R), no edema noted Leg (L), no edema noted Leg (R), no edema noted Pedal (L), no edema noted Pedal (R), no edema noted Generalized Edema: trace edema HONG REYES Feb 05, 2017 09:20
[2017-02-05 11:35] VITALS: BP 110/78
[2017-02-05] MEDS: D5NS 1,000 ML IV SCH (12:00)
--- NOTE | 2017-02-05 12:12 | Infectious Diseases Prog Note ---
Assessment/Plan Assessment/Plan A 1. Citrobacter UTI 2. pneumonia 3. metastatic bladder cancer 4. leucocytosis 5. thrombocytopenia 6. rectal VRE colonization P 1. continue ceftriaxone 2. will f/u stool for c.difficile 3. will follow up cultures Subjective ROS Limited/Unobtainable: Yes Constitutional: Reports: other - weakness Respiratory: Reports: no symptoms Cardiovascular: Reports: no symptoms Gastrointestinal/Abdominal: Reports: no symptoms Allergies: Coded Allergies: No Known Allergies (Unverified , 01/31/17) Objective Vital Signs Last 24 Hour Vital Signs Date Time Temp Pulse Resp B/P (MAP) Pulse Ox O2 Delivery O2 Flow Rate FiO2 02/05/17 11:35 96.1 122 19 110/78 95 Room Air 02/05/17 08:34 96.3 114 18 90/68 94 Room Air 02/05/17 08:00 114 02/05/17 04:00 97.0 110 20 120/75 96 Room Air 02/05/17 04:00 111 02/05/17 00:00 112 02/05/17 00:00 97.5 115 20 94/74 95 Room Air 02/04/17 20:00 97.9 111 20 109/77 98 Room Air 02/04/17 20:00 111 02/04/17 16:40 97.5 112 18 97/75 99 Room Air 02/04/17 16:00 111 Height (Feet): 5 Height (Inches): 1.00 Weight (Pounds): 120 HEENT: other - hair loss Respiratory/Chest: lungs clear Cardiovascular: tachycardia Abdomen: soft, non tender Extremities: other - edema of legs Neurologic/Psychiatric: alert, responsive Laboratory Tests Test 02/05/17 11:17 Sodium Level Pending Potassium Level Pending Chloride Level Pending Carbon Dioxide Level Pending Blood Urea Nitrogen Pending Creatinine Pending Estimat Glomerular Filtration Rate Pending Glucose Level Pending Calcium Level Pending Total Bilirubin Pending Aspartate Amino Transf (AST/SGOT) Pending Alanine Aminotransferase (ALT/SGPT) Pending Alkaline Phosphatase Pending Total Protein Pending Albumin Pending Globulin Pending Current Medications Medications (Trade) Dose Ordered Sig/Juaquin Route PRN Reason Start Time Stop Time Status Last Admin Dose Admin Acetaminophen (Tylenol) 650 mg Q4H PRN ORAL Mild Pain/Temp > 100.5 02/01/17 01:30 03/03/17 01:29 Acetaminophen/ Hydrocodone Bitart ([place] 5/325) 1 tab Q4H PRN ORAL Moderate Pain (Pain Scale 4-6) 02/01/17 01:30 02/08/17 01:29 02/01/17 22:31 Apixaban (Eliquis) 2.5 mg BID ORAL 02/01/17 09:00 03/03/17 08:59 02/05/17 08:34 Ceftriaxone Sodium 1 gm/ Dextrose 55 ml @ 110 mls/hr Q24H IVPB 02/03/17 14:00 02/10/17 13:59 02/04/17 14:14 Dextrose/Sodium Chloride 1,000 ml @ 75 mls/hr [id number] IV 02/01/17 01:30 03/03/17 01:29 02/05/17 12:00 Docusate Sodium (Colace) 250 mg BID ORAL 02/01/17 09:00 03/03/17 08:59 02/05/17 08:33 Gabapentin (Neurontin) 600 mg TID@0900,1500,2100 ORAL 02/01/17 09:00 03/03/17 08:59 02/04/17 14:14 Hydromorphone HCl (Dilaudid) 1 mg Q4H PRN IVP For Pain 02/01/17 01:30 02/08/17 01:29 02/05/17 05:50 Pantoprazole (Protonix) 40 mg DAILY ORAL 02/01/17 09:00 03/03/17 08:59 02/05/17 08:33 MEGHA OGDEN Feb 05, 2017 12:12
[2017-02-05 12:27] LABS: MEAN CORPUSCULAR HEMOGLOBIN 32.6 PG (27.0-31.0); MEAN CORPUSCULAR HGB CONC 30.5 G/DL (32.0-36.0); MEAN CORPUSCULAR VOLUME 107 FL (80-99); MEAN PLATELET VOLUME 12.7 FL (6.5-10.1); PLATELET COUNT 60 K/UL (150-450); RED BLOOD COUNT 3.13 M/UL (4.20-5.40); RED CELL DISTRIBUTION WIDTH 25.1 % (11.6-14.8)
[2017-02-05 12:29] LABS: ALANINE AMINOTRANSFERASE 13 U/L (12-78); ALBUMIN/GLOBULIN RATIO 0.2 (1.0-2.7); ANION GAP 15 mmol/L (5-15); ASPARTATE AMINO TRANSFERASE 68 U/L (15-37); CARBON DIOXIDE 16 MMOL/L (21-32); CHLORIDE 108 MMOL/L (98-107); POTASSIUM 4.6 MMOL/L (3.5-5.1); SODIUM 139 MMOL/L (136-145); TOTAL PROTEIN 6.2 G/DL (6.4-8.2)
[2017-02-05 12:33] LABS: WHITE BLOOD COUNT 28.9 K/UL (4.8-10.8)
[2017-02-05 13:31] LABS: ANISOCYTOSIS 3+; BAND NEUTROPHILS % (MANUAL) 0 % (0-8); BASOPHILS % (MANUAL) 0 % (0-2); EOSINOPHILS % (MANUAL) 0 % (0-3); HYPOCHROMASIA 1+; LYMPHOCYTES % (MANUAL) 3 % (20-45); MACROCYTES 1+; NEUTROPHILS % (MANUAL) 96 % (45-75); PLATELET ESTIMATE DECREASED; PLATELET MORPHOLOGY NORMAL; TOTAL CELLS COUNTED 100
[2017-02-05] MEDS: cefTRIAXone 1 GM in D5W 55 ML IVPB SCH (14:07)
[2017-02-05] MEDS: Metoprolol Succinate XL 25mg tab ORAL SCH (14:12)
[2017-02-05 15:51] VITALS: BP 112/72
[2017-02-05] MEDS ORDERED: D5NS 1000ml IV ONE ×2 (15:51→22:47)
[2017-02-05 16:56] LABS: APPEARANCE,URINE TURBID; KETONES,URINE 1+ (NEGATIVE); LEUKOCYTE ESTERASE ,URINE 3+ (NEGATIVE); NITRITE,URINE POSITIVE (NEGATIVE); PH,URINE 5 (4.5-8.0); PROTEIN,URINE 3+ (NEGATIVE); UROBILINOGEN,URINE NORMAL MG/DL (0.0-1.0)
[2017-02-05 17:05] LABS: BACTERIA,URINE MANY /HPF; ICTOTEST NEGATIVE; RBC,URINE 15-20 /HPF (0 - 2); SQUAMOUS EPITHELIAL CELL,UR OCCASIONAL /LPF (NONE/OCC); WBC,URINE TNTC /HPF (0 - 2)
[2017-02-05 20:29] VITALS: BP 90/70
[2017-02-05] MEDS ORDERED: Tubing IV Secondary IV ONE (22:47)
[2017-02-06 00:49] VITALS: BP 96/72
--- NOTE | 2017-02-06 01:15 | Progress Note ---
DATE: 02/05/2017 CARDIOLOGY PROGRESS NOTE SUBJECTIVE: The patient remains with poor appetite and depressed mood. She continues to require intravenous antimicrobials, on IV fluids. OBJECTIVE: VITAL SIGNS: Blood pressure ranging from 90/68 to 120/75, heart rate 110. Respiratory rate 20. The patient is afebrile. HEENT: Temporal wasting. Oropharynx clear. NECK: Supple. LUNGS: With diminished breath sounds. CARDIAC: Regular rhythm. Rapid rate. Normal S1, S2 with no new murmur. ABDOMEN: Soft. EXTREMITIES: Revealed trace dependent edema. LABORATORY DATA: White count remains elevated at 28.9, hemoglobin 10.2. Albumin 1.1, bicarbonate 16, BUN 23, creatinine 1.0, potassium 4.6. IMPRESSION: 1. Urinary tract infection with sepsis. 2. Polymicrobial wound infection. 3. Metastatic bladder carcinoma. 4. Metabolic acidosis. 5. Intravascular volume depletion due to severe protein-calorie malnutrition and low colloid osmotic pressure, secondary sinus tachycardia. 6. Probable leukemoid reaction due to malignancy with high white count. PLAN: Complete antibiotics. Skin care. Low dose beta-wil. Antidepressant added. Pain control. Encourage oral intake. Manuel Francisco M.D. DR: Radha JOB#: [id number] CC:
[2017-02-06] MEDS: D5NS 1,000 ML IV SCH ×2 (02:19→14:46)
[2017-02-06 04:00] VITALS: BP 104/70
[2017-02-06 08:30] VITALS: BP 103/64
[2017-02-06] MEDS: Docusate 250mg cap ORAL SCH ×2 (08:34→17:40)
[2017-02-06] MEDS: Eliquis 2.5mg tablet ORAL SCH ×3 (08:36→17:40)
[2017-02-06] MEDS: Metoprolol Succinate XL 25mg tab ORAL SCH ×2 (08:38→09:00)
--- NOTE | 2017-02-06 10:23 | Infectious Diseases Prog Note ---
Assessment/Plan Assessment/Plan A 1. Citrobacter UTI 2. pneumonia 3. metastatic bladder cancer 4. leucocytosis 5. thrombocytopenia 6. rectal VRE colonization P 1. continue ceftriaxone 2. will f/u stool for c.difficile 3. will follow up CXR, PICC line placement Subjective ROS Limited/Unobtainable: Yes Constitutional: Reports: anorexia, other - weakness Respiratory: Reports: shortness of breath Allergies: Coded Allergies: No Known Allergies (Unverified , 01/31/17) Objective Vital Signs Last 24 Hour Vital Signs Date Time Temp Pulse Resp B/P (MAP) Pulse Ox O2 Delivery O2 Flow Rate FiO2 02/06/17 09:00 110 103/64 02/06/17 08:30 97.8 110 103/64 Nasal Cannula 2.0 02/06/17 04:00 109 02/06/17 04:00 97.5 106 20 104/70 96 Room Air 02/06/17 00:49 97.7 108 20 96/72 95 Room Air 02/06/17 00:00 103 02/05/17 20:29 97.7 106 19 90/70 96 Room Air 02/05/17 20:00 107 02/05/17 16:00 115 02/05/17 15:51 96.9 120 18 112/72 97 Room Air 02/05/17 14:12 122 110/78 02/05/17 12:00 122 02/05/17 12:00 122 02/05/17 11:35 96.1 122 19 110/78 95 Room Air Height (Feet): 5 Height (Inches): 1.00 Weight (Pounds): 120 HEENT: other - hair loss Respiratory/Chest: lungs clear, other - O2 by cannula Cardiovascular: tachycardia Abdomen: soft, non tender Extremities: no edema Neurologic/Psychiatric: alert, responsive, other - drowsy Microbiology Date/Time Source Procedure Growth Status 02/05/17 14:45 Urine,Clean Catch Urine Culture - Preliminary NO GROWTH Resulted Laboratory Tests Test 02/05/17 11:17 02/05/17 12:05 02/05/17 14:45 Sodium Level 139 MMOL/L (136-145) Potassium Level 4.6 MMOL/L (3.5-5.1) Chloride Level 108 MMOL/L (98-107) H Carbon Dioxide Level 16 MMOL/L (21-32) L Anion Gap 15 mmol/L (5-15) Blood Urea Nitrogen 22 mg/dL (7-18) H Creatinine 1.0 MG/DL (0.55-1.30) Estimat Glomerular Filtration Rate mL/min (>60) Glucose Level 116 MG/DL (74-106) H Calcium Level 7.0 MG/DL (8.5-10.1) L Total Bilirubin 0.9 MG/DL (0.2-1.0) Aspartate Amino Transf (AST/SGOT) 68 U/L (15-37) H Alanine Aminotransferase (ALT/SGPT) 13 U/L (12-78) Alkaline Phosphatase 566 U/L (46-116) H Total Protein 6.2 G/DL (6.4-8.2) L Albumin 1.1 G/DL (3.4-5.0) L Globulin 5.1 g/dL Albumin/Globulin Ratio 0.2 (1.0-2.7) L White Blood Count 28.9 K/UL (4.8-10.8) *H Red Blood Count 3.13 M/UL (4.20-5.40) L Hemoglobin 10.2 G/DL (12.0-16.0) L Hematocrit 33.5 % (37.0-47.0) L Mean Corpuscular Volume 107 FL (80-99) H Mean Corpuscular Hemoglobin 32.6 PG (27.0-31.0) H Mean Corpuscular Hemoglobin Concent 30.5 G/DL (32.0-36.0) L Red Cell Distribution Width 25.1 % (11.6-14.8) H Platelet Count 60 K/UL (150-450) L Mean Platelet Volume 12.7 FL (6.5-10.1) H Neutrophils (%) (Auto) % (45.0-75.0) Lymphocytes (%) (Auto) % (20.0-45.0) Monocytes (%) (Auto) % (1.0-10.0) Eosinophils (%) (Auto) % (0.0-3.0) Basophils (%) (Auto) % (0.0-2.0) Differential Total Cells Counted 100 Neutrophils % (Manual) 96 % (45-75) H Lymphocytes % (Manual) 3 % (20-45) L Monocytes % (Manual) 1 % (1-10) Eosinophils % (Manual) 0 % (0-3) Basophils % (Manual) 0 % (0-2) Band Neutrophils 0 % (0-8) Platelet Estimate Decreased L Platelet Morphology Normal Hypochromasia 1+ Anisocytosis 3+ Macrocytosis 1+ Urine Color Brown Urine Appearance Turbid Urine pH 5 (4.5-8.0) Urine Specific [place] 1.020 (1.005-1.035) Urine Protein 3+ (NEGATIVE) H Urine Glucose (UA) Negative (NEGATIVE) Urine Ketones 1+ (NEGATIVE) H Urine Occult Blood 5+ (NEGATIVE) H Urine Nitrite Positive (NEGATIVE) H Urine Bilirubin 1+ (NEGATIVE) H Urine Ictotest Negative Urine Urobilinogen Normal MG/DL (0.0-1.0) Urine Leukocyte Esterase 3+ (NEGATIVE) H Urine RBC 15-20 /HPF (0 - 2) H Urine WBC Tntc /HPF (0 - 2) H Urine Squamous Epithelial Cells Occasional /LPF Urine Bacteria Many /HPF (NONE) H Current Medications Medications (Trade) Dose Ordered Sig/Juaquin Route PRN Reason Start Time Stop Time Status Last Admin Dose Admin Acetaminophen (Tylenol) 650 mg Q4H PRN ORAL Mild Pain/Temp > 100.5 02/01/17 01:30 03/03/17 01:29 Acetaminophen/ Hydrocodone Bitart ([place] 5/325) 1 tab Q4H PRN ORAL Moderate Pain (Pain Scale 4-6) 02/01/17 01:30 02/08/17 01:29 02/01/17 22:31 Apixaban (Eliquis) 2.5 mg BID ORAL 02/01/17 09:00 03/03/17 08:59 02/05/17 08:34 Ceftriaxone Sodium 1 gm/ Dextrose 55 ml @ 110 mls/hr Q24H IVPB 02/03/17 14:00 02/10/17 13:59 02/05/17 14:07 Dextrose/Sodium Chloride 1,000 ml @ 75 mls/hr [id number] IV 02/01/17 01:30 03/03/17 01:29 02/06/17 02:19 Docusate Sodium (Colace) 250 mg BID ORAL 02/01/17 09:00 03/03/17 08:59 02/06/17 08:34 Gabapentin (Neurontin) 600 mg TID@0900,1500,2100 ORAL 02/01/17 09:00 03/03/17 08:59 02/06/17 08:36 Hydromorphone HCl (Dilaudid) 1 mg Q4H PRN IVP For Pain 02/01/17 01:30 02/08/17 01:29 02/05/17 05:50 Metoprolol Succinate (Toprol XL) 25 mg DAILY ORAL 02/05/17 15:00 03/07/17 14:59 02/05/17 14:12 Mirtazapine (Remeron) 15 mg BEDTIME ORAL 02/05/17 21:00 03/07/17 20:59 02/05/17 20:39 Pantoprazole (Protonix) 40 mg DAILY ORAL 02/01/17 09:00 03/03/17 08:59 02/06/17 08:34 MEGHA OGDEN Feb 06, 2017 10:23
[2017-02-06] MEDS ORDERED: Heparin 2000 units/Ns 1000ml INJ PRN (10:30)
[2017-02-06] MEDS ORDERED: Lidocaine 1% Plain 30 ml INJ PRN (10:30)
[2017-02-06 12:00] VITALS: BP 139/53
[2017-02-06] MEDS: Norco 5mg/325mg tab ORAL PRN (13:57)
[2017-02-06] MEDS: cefTRIAXone 1 GM in D5W 55 ML IVPB SCH (13:59)
--- NOTE | 2017-02-06 13:59 | Diagnostic Imaging Report ---
Indication: Shortness of breath Technique: One view of the chest Comparison: 01/31/2017 Findings: Bilateral small pleural effusions persists, may slightly increased on the left. Bilateral basilar atelectasis persists. Right axillary surgical clips are again demonstrated. Upper lung hart are clear Impression: Increasing small left pleural effusion. Otherwise, little environmental change analyst 6 days, findings as described
[2017-02-06 16:00] VITALS: BP 92/65
[2017-02-06 20:00] VITALS: BP 96/70
[2017-02-06] MEDS ORDERED: Dyna-Hex 2% Top Sol 2oz TOPIC SCH (20:00)
--- NOTE | 2017-02-06 20:34 | General Progress Note ---
Assessment/Plan Problem List: (1) Neutrophilic leukemoid reaction ICD Codes: D72.823 - Leukemoid reaction SNOMED: 04647010 (2) Weakness ICD Codes: R53.1 - Weakness SNOMED: 40445563 (3) FTT (failure to thrive) in adult ICD Codes: R62.7 - Adult failure to thrive SNOMED: 323154294 (4) Hypoglycemia ICD Codes: E16.2 - Hypoglycemia, unspecified SNOMED: 164358224 Assessment/Plan iv abx per ID follow up cultures encourage pos. will down grade to puree monitor labs poor prognosis dc planning on comfort measures Subjective ROS Limited/Unobtainable: Yes Constitutional: Reports: malaise, weakness HEENT: Reports: no symptoms Cardiovascular: Reports: no symptoms Respiratory: Reports: no symptoms Gastrointestinal/Abdominal: Reports: poor appetite, poor fluid intake Genitourinary: Reports: no symptoms Neurologic/Psychiatric: Reports: no symptoms Endocrine: Reports: no symptoms Hematologic/Lymphatic: Reports: no symptoms Allergies: Coded Allergies: No Known Allergies (Unverified , 01/31/17) All Systems: reviewed and negative except above Subjective no events. social work d/w family. pt requesting comfort measures only. family ok with dnr and comfort care per pts wishes Objective Last 24 Hour Vital Signs Date Time Temp Pulse Resp B/P (MAP) Pulse Ox O2 Delivery O2 Flow Rate FiO2 02/06/17 16:00 102 02/06/17 16:00 97.9 100 18 92/65 Nasal Cannula 2.0 110 02/06/17 12:00 97.0 100 18 139/53 Nasal Cannula 2.0 02/06/17 12:00 113 02/06/17 09:00 110 103/64 02/06/17 08:30 97.8 110 103/64 Nasal Cannula 2.0 02/06/17 08:00 105 02/06/17 04:00 109 02/06/17 04:00 97.5 106 20 104/70 96 Room Air 02/06/17 00:49 97.7 108 20 96/72 95 Room Air 02/06/17 00:00 103 Intake and Output 02/06/17 02/07/17 19:00 07:00 Intake Total 120 ml Balance 120 ml Intake Oral 120 ml # Voids 2 Height (Feet): 5 Height (Inches): 1.00 Weight (Pounds): 120 Objective General Appearance: WD/WN, alert Neck: supple Cardiovascular: regular rhythm Respiratory/Chest: chest wall non-tender, lungs clear, normal breath sounds, no respiratory distress Abdomen: normal bowel sounds, non tender, soft, no organomegaly Edema: no edema noted Arm (L), no edema noted Arm (R), no edema noted Leg (L), no edema noted Leg (R), no edema noted Pedal (L), no edema noted Pedal (R), no edema noted Generalized Edema: trace edema HONG REYES Feb 06, 2017 20:34
[2017-02-07] VITALS (27 sets, daily range): BP systolic 64–144; BP diastolic 36–80
[2017-02-07] MEDS ORDERED: Albuterol/Ipratropium 3ml neb HHN PRN ×2 (01:30→16:30)
[2017-02-07] MEDS: Norco 5mg/325mg tab ORAL PRN ×2 (02:55→08:49)
[2017-02-07] MEDS: D5NS 1,000 ML IV SCH ×2 (04:10→17:21)
--- NOTE | 2017-02-07 04:15 | Progress Note ---
DATE: 02/06/2017 CARDIOLOGY PROGRESS NOTE SUBJECTIVE: The patient has congestion. She has minimal oral intake. Family members have discussed care plan and decided on DNR and comfort care per patient's wishes. Hospice referral is pending. PHYSICAL EXAMINATION: VITAL SIGNS: Blood pressure 92/65, pulse 118, and afebrile. NECK: Supple. LUNGS: With coarse breath sounds. CARDIAC: Regular rhythm. Rapid rate. Normal S1, S2. ABDOMEN: Soft. EXTREMITIES: With trace edema. LABORATORIES: Cultures revealed no new growth. IMPRESSION: 1. Urinary tract infection, status post therapy. 2. Toxic and metabolic encephalopathies, improved. 3. Metastatic bladder carcinoma. 4. Anemia. 5. Severe protein-calorie malnutrition. 6. Dysphagia. 7. Leukemoid reaction. 8. History of deep venous thrombosis of upper extremities. PLAN: 1. Complete antibiotics. 2. Respiratory therapy. 3. Full anticoagulation for now. 4. Consider morphine drip and discontinuation of all care if the patient proceeds with hospice care plan. Manuel Francisco M.D. DR: BERNARDINO JOB#: [id number] CC:
[2017-02-07] MEDS: Metoprolol Succinate XL 25mg tab ORAL SCH (08:50)
[2017-02-07] MEDS: Docusate 250mg cap ORAL SCH ×2 (08:52→17:21)
[2017-02-07] MEDS: Eliquis 2.5mg tablet ORAL SCH ×2 (08:52→17:21)
--- NOTE | 2017-02-07 12:15 | Infectious Diseases Prog Note ---
Assessment/Plan Assessment/Plan antibiotics : ceftriaxone A 1. citrobacter UTI 2. pneumonia 3. metastatic bladder cancer 4. leucocytosis 5. thrombocytopenia 6. rectal VRE colonization P 1. continue ceftriaxone 1 more day 2. will follow up cultures Subjective ROS Limited/Unobtainable: Yes Allergies: Coded Allergies: No Known Allergies (Unverified , 01/31/17) Objective Vital Signs Last 24 Hour Vital Signs Date Time Temp Pulse Resp B/P (MAP) Pulse Ox O2 Delivery O2 Flow Rate FiO2 02/07/17 11:14 68 20 97 Nasal Cannula 2.0 28 02/07/17 11:07 67 18 96 Nasal Cannula 2.0 28 02/07/17 08:37 87 22 Nasal Cannula 2.0 28 02/07/17 08:37 94 Nasal Cannula 2.0 28 02/07/17 08:37 Nasal Cannula 2.0 28 02/07/17 08:00 97.2 118 21 91/56 95 Nasal Cannula 2.0 02/07/17 04:00 98.1 78 22 113/60 97 Nasal Cannula 98.1 121 02/07/17 04:00 121 02/07/17 03:54 97.8 02/07/17 00:00 114 02/07/17 00:00 97.8 107 20 117/74 98 Nasal Cannula 02/06/17 20:00 109 02/06/17 20:00 98.2 108 20 96/70 98 Nasal Cannula 02/06/17 16:00 102 02/06/17 16:00 97.9 100 18 92/65 Nasal Cannula 2.0 110 Height (Feet): 5 Height (Inches): 1.00 Weight (Pounds): 120 Respiratory/Chest: lungs clear Cardiovascular: normal rate, regular rhythm, no gallop/murmur Abdomen: soft, non tender Extremities: other - edema decreasing Microbiology Date/Time Source Procedure Growth Status 02/05/17 14:45 Urine,Clean Catch Urine Culture - Preliminary NO GROWTH AFTER 24 HOURS Resulted KAMAR MOSLEY Feb 07, 2017 12:15
[2017-02-07] MEDS: cefTRIAXone 1 GM in D5W 55 ML IVPB SCH (14:00)
[2017-02-07] MEDS ORDERED: Lidocaine 1% Plain 30 ml INJ ONE ×2 (16:15→17:45)
[2017-02-07] MEDS ORDERED: Heparin 2000 units/Ns 1000ml INJ ONE (16:15)
[2017-02-07 16:19] LABS: ABG ALLEN TEST POSITIVE; ABG BASE EXCESS -7.3; ABG PCO2 43.8 mmHg (35.0-45.0)
[2017-02-07 16:25] LABS: MEAN CORPUSCULAR HEMOGLOBIN 32.8 PG (27.0-31.0); MEAN CORPUSCULAR HGB CONC 30.4 G/DL (32.0-36.0); MEAN CORPUSCULAR VOLUME 108 FL (80-99); PLATELET COUNT 39 K/UL (150-450); RED BLOOD COUNT 2.66 M/UL (4.20-5.40); RED CELL DISTRIBUTION WIDTH 25.1 % (11.6-14.8)
[2017-02-07] MEDS ORDERED: Norco 5mg/325mg tab ORAL PRN (16:30)
[2017-02-07] MEDS ORDERED: HYDROmorphone 1mg/ml Carpuject IVP PRN (16:30)
[2017-02-07 16:34] LABS: WHITE BLOOD COUNT 29.1 K/UL (4.8-10.8)
[2017-02-07 16:35] LABS: ANION GAP 13 mmol/L (5-15); CALCIUM 6.6 MG/DL (8.5-10.1); CARBON DIOXIDE 19 MMOL/L (21-32); CHLORIDE 111 MMOL/L (98-107); CREATININE 0.9 MG/DL (0.55-1.30); POTASSIUM 4.5 MMOL/L (3.5-5.1); SODIUM 143 MMOL/L (136-145)
[2017-02-07 16:44] LABS: ALANINE AMINOTRANSFERASE 25 U/L (12-78); ALBUMIN/GLOBULIN RATIO 0.2 (1.0-2.7); ASPARTATE AMINO TRANSFERASE 106 U/L (15-37); TOTAL PROTEIN 5.2 G/DL (6.4-8.2)
[2017-02-07] MEDS ORDERED: Vancomycin 750mg/NS 250ml 250 ML IVPB SCH (17:00)
[2017-02-07 17:08] LABS: BILIRUBIN,DIRECT 0.9 MG/DL (0.0-0.3)
[2017-02-07] MEDS: Vancomycin 750mg/NS 250ml 250 ML IVPB SCH (17:20)
[2017-02-07 17:25] LABS: ANISOCYTOSIS 3+; BAND NEUTROPHILS % (MANUAL) 3 % (0-8); LYMPHOCYTES % (MANUAL) 5 % (20-45); NEUTROPHILS % (MANUAL) 90 % (45-75); TOTAL CELLS COUNTED 100
[2017-02-07 17:26] LABS: BASOPHILS % (MANUAL) 0 % (0-2); BURR CELLS 1+; EOSINOPHILS % (MANUAL) 0 % (0-3); HYPOCHROMASIA 2+; PLATELET ESTIMATE DECREASED; PLATELET MORPHOLOGY NORMAL; POLYCHROMASIA 1+
[2017-02-07 17:27] LABS: MACROCYTES 1+
--- NOTE | 2017-02-07 18:28 | Emergency Room Report ---
History of Present Illness General Chief Complaint: Abnormal Labs Source: Patient, Medical Record Present Illness Allergies: Coded Allergies: No Known Allergies (Unverified , 01/31/17) Patient History Last Menstrual Period: NA Now: No Nursing Documentation-PMH Hx Cancer: Yes Hx Neurological Problems: Yes Hx Peripheral Neuropathy: Yes Hx Syncope: Yes Hx Weakness: Yes - Failure to thrive, Physical Exam Vital Signs Date Time Temp Pulse Resp B/P (MAP) Pulse Ox O2 Delivery O2 Flow Rate FiO2 01/31/17 20:30 97.3 94 18 126/96 100 Room Air 02/01/17 07:56 02/07/17 08:37 28 Procedures Central Line Central Line : Consent: Emergent Central Line Lumen: triple Maximal Sterile Barrier Tech: yes cap, yes mask, yes sterile gown, yes sterile gloves, yes large sterile sheet, yes hand hygiene, yes chlorhexidine prep Central Line Postion: internal jugular (R) Anesthesia: Lidocaine cc's of anesthesia: 3 Complications: none Central Line Post Position: sutured, good blood return, position confirmed w / CXR Attempts: One Patient Tolerated: Well Complications: Other - pt with some slight bleeding, has low platelets Medical Decision Making Diagnostic Impression: Primary Impression: Hypoglycemia Additional Impressions: Neutrophilic leukemoid reaction Weakness FTT (failure to thrive) in adult Last Vital Signs Date Time Temp Pulse Resp B/P (MAP) Pulse Ox O2 Delivery O2 Flow Rate FiO2 02/07/17 17:00 113 18 71/44 97 Venturi Mask 14.0 55 02/07/17 16:15 97.7 Disposition: ADMITTED INPATIENT Condition: Serious Referrals: NON PHYSICIAN (PCP) Patient Instructions: Smoking Cessation, Tips for Success, [id number], Failure to Thrive, Adult, [id number] Lasha Chong M.D. Feb 07, 2017 18:28
--- NOTE | 2017-02-07 19:45 | Consultation ---
History of Present Illness General Chief Complaint: Abnormal Labs Present Illness HPI 71-year-old female with history of metastatic bladder cancer, has been apparently receiving chemotherapy. She has a history of hydronephrosis, status post bilateral ureteral stents, DVT, anemia, and chronic pain who presented to the emergency room with complaints of hyperglycemia, lethargy, and weakness. The pt was assessed by out social sciences lecturer, Monika yesterday and appeared to be lucid and engaged. She stated that she wanted DNR, however today morning when I reassessed her she was confused and was saying "yes" to DNR and full code. The pt was lethargic and was unable to process the information was given to her. She stated she was there to be healed. The pt even was not able to state that she has terminal cancer. Allergies: Coded Allergies: No Known Allergies (Unverified , 01/31/17) Medication History Scheduled Apixaban (Eliquis), 5 MG PO BID, (Reported) Bisacodyl (Dulcolax), 10 MG RC PRN, (Reported) Docusate Sodium* (Colace*), 100 MG ORAL DAILY, (Reported) Furosemide* (Lasix*), 20 MG ORAL DAILY, (Reported) Gabapentin* (Neurontin*), 600 MG ORAL EVERY 8 HOURS, (Reported) Omeprazole (Omeprazole), 20 MG ORAL DAILY, (Reported) Potassium Chloride* (K-Dur*), 10 MEQ ORAL DAILY, (Reported) Sennosides (Senokot), 8.6 MG PO DAILY, (Reported) Scheduled PRN Acetaminophen* (Acetaminophen 325MG Tablet*), 650 MG ORAL Q4H PRN for Fever/ Headache/Mild Pain, (Reported) Hydrocodone Bit/Acetaminophen 10-325* ([place] 10-325*), 1 TAB ORAL Q6H PRN for For Pain, (Reported) Hydrocodone Bit/Acetaminophen 5-325* ([place] 5-325*), 1 TAB ORAL Q6H PRN for For Pain, (Reported) Magnesium Hydroxide* (Milk Of Magnesia*), 30 ML ORAL DAILY PRN for Constipation, (Reported) Patient History Limited by: medical condition History Provided By: Patient, Medical Record, PMD Healthcare decision maker Resuscitation status Full Code Advanced Directive on File Yes Past Medical/Surgical History Past Medical/Surgical History: (1) Neutrophilic leukemoid reaction (2) Weakness (3) Hypoglycemia (4) FTT (failure to thrive) in adult Review of Systems Psychiatric: Reports: prior hx, anxiety Physical Exam General Appearance: no apparent distress, lethargic, confused, thin Neurologic: responsive, disoriented, depressed affect Last 24 Hour Vital Signs Date Time Temp Pulse Resp B/P (MAP) Pulse Ox O2 Delivery O2 Flow Rate FiO2 02/07/17 19:29 79/52 02/07/17 19:18 Venturi Mask 12.0 50 02/07/17 19:17 97 Venturi Mask 12.0 50 02/07/17 19:17 102 24 Nasal Cannula 2.0 28 02/07/17 19:00 108 16 79/52 98 Venturi Mask 14.0 55 02/07/17 18:00 114 18 71/44 98 Venturi Mask 14.0 55 02/07/17 17:00 113 18 71/44 97 Venturi Mask 14.0 55 02/07/17 16:15 97.7 115 20 70/45 96 Venturi Mask 14.0 55 02/07/17 12:00 97.0 108 20 90/58 96 Room Air 2.0 02/07/17 11:30 78/45 02/07/17 11:14 68 20 97 Nasal Cannula 2.0 28 02/07/17 11:07 67 18 96 Nasal Cannula 2.0 28 02/07/17 08:37 87 22 Nasal Cannula 2.0 28 02/07/17 08:37 94 Nasal Cannula 2.0 28 02/07/17 08:37 Nasal Cannula 2.0 28 02/07/17 08:00 97.2 118 21 91/56 95 Nasal Cannula 2.0 02/07/17 04:00 98.1 78 22 113/60 97 Nasal Cannula 98.1 121 02/07/17 04:00 121 02/07/17 03:54 97.8 02/07/17 00:00 114 02/07/17 00:00 97.8 107 20 117/74 98 Nasal Cannula 02/06/17 20:00 109 02/06/17 20:00 98.2 108 20 96/70 98 Nasal Cannula Intake and Output 02/07/17 02/08/17 19:00 07:00 Intake Total 166.667 ml Output Total 40 ml Balance 126.667 ml Intake Oral 0 ml IV Total 166.667 ml Output Urine Total 40 ml # Voids 1 Laboratory Tests Test 02/07/17 15:30 02/07/17 16:15 White Blood Count 29.1 K/UL (4.8-10.8) *H Red Blood Count 2.66 M/UL (4.20-5.40) L Hemoglobin 8.7 G/DL (12.0-16.0) L Hematocrit 28.7 % (37.0-47.0) L Mean Corpuscular Volume 108 FL (80-99) H Mean Corpuscular Hemoglobin 32.8 PG (27.0-31.0) H Mean Corpuscular Hemoglobin Concent 30.4 G/DL (32.0-36.0) L Red Cell Distribution Width 25.1 % (11.6-14.8) H Platelet Count 39 K/UL (150-450) L Mean Platelet Volume 10.0 FL (6.5-10.1) Neutrophils (%) (Auto) % (45.0-75.0) Lymphocytes (%) (Auto) % (20.0-45.0) Monocytes (%) (Auto) % (1.0-10.0) Eosinophils (%) (Auto) % (0.0-3.0) Basophils (%) (Auto) % (0.0-2.0) Differential Total Cells Counted 100 Neutrophils % (Manual) 90 % (45-75) H Lymphocytes % (Manual) 5 % (20-45) L Monocytes % (Manual) 2 % (1-10) Eosinophils % (Manual) 0 % (0-3) Basophils % (Manual) 0 % (0-2) Band Neutrophils 3 % (0-8) Platelet Estimate Decreased L Platelet Morphology Normal Polychromasia 1+ Hypochromasia 2+ Anisocytosis 3+ Macrocytosis 1+ Colleen Cells 1+ Sodium Level 143 MMOL/L (136-145) Potassium Level 4.5 MMOL/L (3.5-5.1) Chloride Level 111 MMOL/L (98-107) H Carbon Dioxide Level 19 MMOL/L (21-32) L Anion Gap 13 mmol/L (5-15) Blood Urea Nitrogen 28 mg/dL (7-18) H Creatinine 0.9 MG/DL (0.55-1.30) Estimat Glomerular Filtration Rate mL/min (>60) Glucose Level 70 MG/DL (74-106) L Calcium Level 6.6 MG/DL (8.5-10.1) L Total Bilirubin 1.1 MG/DL (0.2-1.0) H Direct Bilirubin 0.9 MG/DL (0.0-0.3) H Aspartate Amino Transf (AST/SGOT) 106 U/L (15-37) H Alanine Aminotransferase (ALT/SGPT) 25 U/L (12-78) Alkaline Phosphatase 375 U/L (46-116) H Troponin I 0.015 ng/mL (0.000-0.056) Total Protein 5.2 G/DL (6.4-8.2) L Albumin 1.0 G/DL (3.4-5.0) L Globulin 4.2 g/dL Albumin/Globulin Ratio 0.2 (1.0-2.7) L Arterial Blood pH 7.262 (7.350-7.450) Arterial Blood Partial Pressure CO2 43.8 mmHg (35.0-45.0) Arterial Blood Partial Pressure O2 78.1 mmHg (75.0-100.0) Arterial Blood HCO3 19.3 mmol/L (22.0-26.0) L Arterial Blood Oxygen Saturation 93.1 % (92.0-98.0) Arterial Blood Base Excess -7.3 Adan Test Positive Height (Feet): 5 Height (Inches): 1.00 Weight (Pounds): 120 Medications Current Medications Medications (Trade) Dose Ordered Sig/Juaquin Route PRN Reason Start Time Stop Time Status Last Admin Dose Admin Acetaminophen (Tylenol) 650 mg Q4H PRN ORAL Mild Pain/Temp > 100.5 02/07/17 16:30 03/03/17 16:29 Acetaminophen/ Hydrocodone Bitart ([place] 5/325) 1 tab Q4H PRN ORAL Moderate Pain (Pain Scale 4-6) 02/07/17 16:30 02/08/17 16:29 Albuterol/ Ipratropium (Albuterol/ Ipratropium) 3 ml Q4H PRN HHN For Cough 02/07/17 16:30 02/12/17 16:29 Apixaban (Eliquis) 2.5 mg BID ORAL 02/07/17 18:00 03/03/17 08:59 Ceftriaxone Sodium 1 gm/ Dextrose 55 ml @ 110 mls/hr Q24H IVPB 02/08/17 14:00 02/10/17 13:59 Chlorhexidine Gluconate (Gracie-Hex 2%) 1 applic DAILY@2000 TOPIC 02/07/17 20:00 03/08/17 19:59 Dextrose/Sodium Chloride 1,000 ml @ 75 mls/hr [id number] IV 02/07/17 17:00 03/03/17 16:59 02/07/17 17:21 Docusate Sodium (Colace) 250 mg BID ORAL 02/07/17 18:00 03/03/17 08:59 Gabapentin (Neurontin) 600 mg TID@0900,1500,2100 ORAL 02/07/17 21:00 03/03/17 08:59 Hydromorphone HCl (Dilaudid) 1 mg Q4H PRN IVP Severe Pain 02/07/17 16:30 02/08/17 16:29 Metoprolol Succinate (Toprol XL) 25 mg DAILY ORAL 02/08/17 09:00 03/07/17 14:59 Mirtazapine (Remeron) 15 mg BEDTIME ORAL 02/07/17 21:00 03/07/17 20:59 Norepinephrine Bitartrate 4 mg/ Dextrose 250 ml @ 0 mls/hr Q24H IV 02/07/17 18:30 03/09/17 18:29 02/07/17 19:29 Pantoprazole (Protonix) 40 mg DAILY ORAL 02/08/17 09:00 03/03/17 08:59 Vancomycin HCl (Vanco rx to dose) 1 ea DAILYPRN PRN MISC Per rx protocol 02/07/17 17:00 03/09/17 16:59 Vancomycin/Sodium Chloride 250 ml @ 166.667 mls/hr Q24H IVPB 02/07/17 17:00 02/12/17 16:59 02/07/17 17:20 Assessment/Plan Assessment/Plan the pt lacks capacity to make decision. The pt's next of keen should be educated , it appears that when the pt was not confused requested DNR. Radha Lester M.D. Feb 07, 2017 19:45
[2017-02-07] MEDS: Dyna-Hex 2% Top Sol 2oz TOPIC SCH (19:55)
[2017-02-07 22:05] LABS: APPEARANCE,URINE CLOUDY; KETONES,URINE 2+ (NEGATIVE); LEUKOCYTE ESTERASE ,URINE 3+ (NEGATIVE); NITRITE,URINE NEGATIVE (NEGATIVE); PH,URINE 6.5 (4.5-8.0); PROTEIN,URINE 4+ (NEGATIVE); UROBILINOGEN,URINE NORMAL MG/DL (0.0-1.0)
[2017-02-07 22:30] LABS: BACTERIA,URINE MANY /HPF; RBC,URINE TNTC /HPF (0 - 2); SQUAMOUS EPITHELIAL CELL,UR FEW /LPF (NONE/OCC); WBC,URINE TNTC /HPF (0 - 2)
--- NOTE | 2017-02-07 23:15 | Discharge Summary ---
DATE OF ADMISSION: 01/31/2017 DATE OF DISCHARGE: 02/07/2017 ADMISSION DIAGNOSES: 1. Failure to thrive. 2. Metastatic bladder cancer. 3. Anemia. 4. History of deep venous thrombosis. 5. Bilateral ureteral stents. 6. Intractable pain. DISCHARGE DIAGNOSES: 1. Failure to thrive. 2. Metastatic bladder cancer. 3. Anemia. 4. History of deep venous thrombosis. 5. Bilateral ureteral stents. 6. Intractable pain. HOSPITAL COURSE: This is an unfortunate female with a history of metastatic bladder cancer that had been on multiple doses of chemotherapy. She has failed to improve and has gotten progressively weaker. She was at a residential facility and had been doing poorly there. She has had very poor p.o. intake and weight loss, malaise, fatigue, and pain. She was transferred here for further evaluation. On evaluation here, the patient was initially started on antibiotics because of an elevated white count and concern for an infection. The patient was hydrated. She received IV pain medications. The patient continued to express wishes to be made DNR and to be on comfort measures only. Initially family were resistant, but after discussion with social workers, they agreed to place the patient on comfort measures per the patient's own expressed wishes. She will be discharged to a residential facility where hospice will be arranged. DISCHARGE MEDICATIONS: Please see discharge medication list for discharge medications. DIET: Regular diet. ACTIVITY: Ad-laurence. FOLLOWUP: The patient will be followed by her PMD in 1 to 2 days. Riley Guzmán M.D. DR: YASEMIN JOB#: [id number] CC:
[2017-02-08] VITALS (88 sets, daily range): BP systolic 32–209; BP diastolic 15–82
[2017-02-08 00:40] LABS: ABG ALLEN TEST POSITIVE; ABG BASE EXCESS -10.4; ABG PCO2 41.9 mmHg (35.0-45.0)
[2017-02-08] MEDS ORDERED: Levophed 4mg/4mL Inj IV ONE ×2 (03:26→14:02)
--- NOTE | 2017-02-08 04:45 | Progress Note ---
DATE: 02/07/2017 CARDIOLOGY PROGRESS NOTE SUBJECTIVE: The patient's condition has deteriorated. She has developed hypotension and respiratory distress. She required a triple lumen to be placed for adequate access this afternoon. Family members have reversed the previous DNR order and consideration for hospice care. I spoke with the patient's niece from [place] on the phone. She confirms that they want everything done for the patient at this time and are trying to come see her. I recommended they do as soon as possible since she is terminal. I also expressed the family members that her prognosis is dismal and she is extremely high risk for sudden cardiac . The family member expressed poor insight regarding the severity of her aunt's condition. She felt that the patient did not receive adequate care at the [facility] to [facility] where she was admitted from and that has led to current events. I informed her that although I was a part of the treatment plan at that previous facility, the severity of her malignancy is more likely the reason for her current situation. OBJECTIVE: VITAL SIGNS: Blood pressure 75/50, pulse 120, respirations 18, no fevers. HEENT: Temporal wasting. Pale conjunctivae. NECK: Supple. LUNGS: With coarse breath sounds and rhonchi. CARDIAC: Regular rhythm. Rapid rate. Normal S1 and S2. ABDOMEN: Distended and soft. EXTREMITIES: With 1 to 2+ dependent edema. LABORATORY DATA: Labs reviewed. ICU logs noted. Case discussed with the nursing staff. Condition critical. Prognosis grave. IMPRESSION: 1. Multiorgan system failure due to metastatic bladder carcinoma. 2. Impending respiratory failure. 3. Shock, likely due to sepsis and hypovolemia due to extremely low colloid osmotic pressure. RECOMMENDATIONS: 1. Volume support. 2. Pressor support. 3. Pain control. 4. DVT and stress ulcer prophylaxes. 5. BiPAP as needed and ultimately intubation and mechanical ventilation if pulmonary status still requires. Manuel Francisco M.D. DR: MARK JOB#: [id number] CC:
[2017-02-08 05:57] LABS: MEAN CORPUSCULAR HEMOGLOBIN 32.6 PG (27.0-31.0); MEAN CORPUSCULAR VOLUME 108 FL (80-99); PLATELET COUNT 53 K/UL (150-450); RED BLOOD COUNT 2.83 M/UL (4.20-5.40)
[2017-02-08 06:01] LABS: ALANINE AMINOTRANSFERASE 24 U/L (12-78); ALBUMIN/GLOBULIN RATIO 0.2 (1.0-2.7); ANION GAP 12 mmol/L (5-15); ASPARTATE AMINO TRANSFERASE 151 U/L (15-37); CALCIUM 6.4 MG/DL (8.5-10.1); CARBON DIOXIDE 18 MMOL/L (21-32); CHLORIDE 110 MMOL/L (98-107); CREATININE 1.2 MG/DL (0.55-1.30); POTASSIUM 4.7 MMOL/L (3.5-5.1); SODIUM 140 MMOL/L (136-145); TOTAL PROTEIN 5.5 G/DL (6.4-8.2)
[2017-02-08 06:02] LABS: WHITE BLOOD COUNT 29.7 K/UL (4.8-10.8)
[2017-02-08] MEDS: D5NS 1,000 ML IV SCH ×2 (06:07→19:45)
--- NOTE | 2017-02-08 07:42 | General Progress Note ---
Assessment/Plan Problem List: (1) Neutrophilic leukemoid reaction ICD Codes: D72.823 - Leukemoid reaction SNOMED: 06849543 (2) Weakness ICD Codes: R53.1 - Weakness SNOMED: 23621924 (3) FTT (failure to thrive) in adult ICD Codes: R62.7 - Adult failure to thrive SNOMED: 148135956 (4) Hypoglycemia ICD Codes: E16.2 - Hypoglycemia, unspecified SNOMED: 529990016 Status: deteriorating Assessment/Plan full code and aggressive rx per sister pt poor prognosis has been discussed with sister at length >45 mins informed sister SHREE that pt has expressed her wishes for comfort care since the beginning of this admission(i feel she was competent upon admit but is no longer competent now) sister "does not believe" that what the pt really wants will cont supportive care pressors bipap abx follow up cultures pt remains critical and guarded prognosis is poor. Subjective ROS Limited/Unobtainable: Yes Constitutional: Reports: malaise, weakness HEENT: Reports: no symptoms Cardiovascular: Reports: no symptoms Respiratory: Reports: shortness of breath, sputum Gastrointestinal/Abdominal: Reports: no symptoms Genitourinary: Reports: no symptoms Neurologic/Psychiatric: Reports: no symptoms Endocrine: Reports: no symptoms Hematologic/Lymphatic: Reports: anemia Allergies: Coded Allergies: No Known Allergies (Unverified , 01/31/17) All Systems: reviewed and negative except above Subjective doing poorly. on pressors and bipap. +congestion. poorly responsive, central line placed by ER iv abx rx adjusted. labs reviewed Objective Last 24 Hour Vital Signs Date Time Temp Pulse Resp B/P (MAP) Pulse Ox O2 Delivery O2 Flow Rate FiO2 02/08/17 07:12 119 16 99 Facial 40 02/08/17 06:45 117 15 80/51 100 Bi-pap 40 02/08/17 06:30 118 15 82/55 100 Bi-pap 40 02/08/17 06:15 118 15 81/56 99 Bi-pap 40 02/08/17 06:00 119 15 82/56 99 Bi-pap 40 02/08/17 05:45 118 15 81/52 98 Bi-pap 40 02/08/17 05:41 82/58 02/08/17 05:30 119 15 82/58 98 Bi-pap 40 02/08/17 05:26 19 14 99 Facial 40 02/08/17 05:15 119 15 82/58 98 Bi-pap 40 02/08/17 05:00 119 15 84/56 98 Bi-pap 40 02/08/17 04:45 119 15 81/59 98 Bi-pap 40 02/08/17 04:30 116 15 85/57 98 Bi-pap 40 02/08/17 04:15 116 15 85/57 98 Bi-pap 40 02/08/17 04:00 97.4 115 14 81/57 98 Bi-pap 40 02/08/17 04:00 40 02/08/17 04:00 113 02/08/17 03:45 115 15 84/56 98 Bi-pap 40 02/08/17 03:30 115 13 86/47 98 Bi-pap 40 02/08/17 03:15 115 13 83/67 100 Bi-pap 40 02/08/17 03:00 110 14 77/63 100 Bi-pap 40 02/08/17 02:45 114 14 89/54 100 Bi-pap 40 02/08/17 02:42 114 16 100 Facial 40 02/08/17 02:30 112 13 85/48 100 Bi-pap 40 02/08/17 02:15 114 14 85/48 100 Bi-pap 50 02/08/17 02:01 97.9 02/08/17 02:00 116 15 88/45 99 Bi-pap 50 02/08/17 02:00 40 02/08/17 01:53 82/53 02/08/17 01:45 113 14 81/55 100 Bi-pap 50 02/08/17 01:30 115 20 82/53 100 Bi-pap 50 02/08/17 01:15 116 20 115/82 99 Bi-pap 50 02/08/17 01:00 50 02/08/17 01:00 119 25 90/70 99 Bi-pap 50 02/08/17 00:45 117 23 83/46 99 Bi-pap 50 02/08/17 00:43 115 24 100 Facial 50 02/08/17 00:30 117 22 88/47 100 Bi-pap 100 02/08/17 00:15 116 22 83/56 100 Bi-pap 100 02/08/17 00:00 100 02/08/17 00:00 97.9 116 23 113/81 100 Bi-pap 100 02/08/17 00:00 119 02/07/17 23:45 116 23 104/73 100 Bi-pap 100 02/07/17 23:30 116 23 112/67 100 Bi-pap 100 02/07/17 23:15 119 24 84/56 100 Bi-pap 100 02/07/17 23:06 121 22 97 Facial 100 02/07/17 23:00 120 23 88/57 98 Bi-pap 100 02/07/17 23:00 100 02/07/17 22:45 116 23 104/73 100 Bi-pap 100 02/07/17 22:30 116 25 112/67 90 Venturi Mask 14.0 55 02/07/17 22:15 108 25 95/61 90 Venturi Mask 14.0 55 02/07/17 22:00 113 20 67/49 91 Venturi Mask 14.0 55 02/07/17 21:45 110 20 64/36 95 Venturi Mask 14.0 55 02/07/17 21:30 111 20 90/49 99 Venturi Mask 14.0 55 02/07/17 21:15 109 20 90/57 99 Venturi Mask 14.0 55 02/07/17 21:00 111 17 97/73 98 Venturi Mask 14.0 55 02/07/17 21:00 97/73 02/07/17 20:45 110 17 93/63 98 Venturi Mask 14.0 55 02/07/17 20:30 112 17 96/66 98 Venturi Mask 14.0 55 02/07/17 20:15 111 17 96/66 98 Venturi Mask 14.0 55 02/07/17 20:00 98.0 110 18 89/57 98 Venturi Mask 14.0 55 02/07/17 20:00 108 02/07/17 20:00 96/66 02/07/17 19:45 109 17 89/57 98 Venturi Mask 14.0 55 02/07/17 19:30 109 17 123/63 98 Venturi Mask 14.0 55 02/07/17 19:29 79/52 02/07/17 19:18 Venturi Mask 12.0 50 02/07/17 19:17 97 Venturi Mask 12.0 50 02/07/17 19:17 102 24 Nasal Cannula 2.0 28 02/07/17 19:00 108 16 79/52 98 Venturi Mask 14.0 55 02/07/17 18:00 114 18 71/44 98 Venturi Mask 14.0 55 02/07/17 17:00 113 18 71/44 97 Venturi Mask 14.0 55 02/07/17 16:15 97.7 115 20 70/45 96 Venturi Mask 14.0 55 02/07/17 12:00 97.0 108 20 90/58 96 Room Air 2.0 02/07/17 11:30 78/45 02/07/17 11:14 68 20 97 Nasal Cannula 2.0 28 02/07/17 11:07 67 18 96 Nasal Cannula 2.0 28 02/07/17 08:37 87 22 Nasal Cannula 2.0 28 02/07/17 08:37 94 Nasal Cannula 2.0 28 02/07/17 08:37 Nasal Cannula 2.0 28 02/07/17 08:00 97.2 118 21 91/56 95 Nasal Cannula 2.0 Laboratory Tests 02/07/17 15:30: White Blood Count 29.1*H, Red Blood Count 2.66L, Hemoglobin 8.7L, Hematocrit 28.7L, Mean Corpuscular Volume 108H, Mean Corpuscular Hemoglobin 32.8H, Mean Corpuscular Hemoglobin Concent 30.4L, Red Cell Distribution Width 25.1H, Platelet Count 39L, Mean Platelet Volume 10.0, Neutrophils (%) (Auto) , Lymphocytes (%) (Auto) , Monocytes (%) (Auto) , Eosinophils (%) (Auto) , Basophils (%) (Auto) , Differential Total Cells Counted 100, Neutrophils % ( Manual) 90H, Lymphocytes % (Manual) 5L, Monocytes % (Manual) 2, Eosinophils % ( Manual) 0, Basophils % (Manual) 0, Band Neutrophils 3, Platelet Estimate DecreasedL, Platelet Morphology Normal, Polychromasia 1+, Hypochromasia 2+, Anisocytosis 3+, Macrocytosis 1+, [place] Cells 1+, Sodium Level 143, Potassium Level 4.5, Chloride Level 111H, Carbon Dioxide Level 19L, Anion Gap 13, Blood Urea Nitrogen 28H, Creatinine 0.9, Estimat Glomerular Filtration Rate , Glucose Level 70L, Calcium Level 6.6L, Total Bilirubin 1.1H, Direct Bilirubin 0.9H, Aspartate Amino Transf (AST/SGOT) 106H, Alanine Aminotransferase (ALT/SGPT) 25, Alkaline Phosphatase 375H, Troponin I 0.015, Total Protein 5.2L, Albumin 1.0L, Globulin 4.2, Albumin/Globulin Ratio 0.2L 02/07/17 16:15: Arterial Blood pH 7.262L, Arterial Blood Partial Pressure CO2 43.8, Arterial Blood Partial Pressure O2 78.1, Arterial Blood HCO3 19.3L, Arterial Blood Oxygen Saturation 93.1, Arterial Blood Base Excess -7.3, Adan Test Positive 02/07/17 17:00: Urine Color Red, Urine Appearance Cloudy, Urine pH 6.5, Urine Specific [place] 1.015, Urine Protein 4+H, Urine Glucose (UA) Negative, Urine Ketones 2+H, Urine Occult Blood 5+H, Urine Nitrite Negative, Urine Bilirubin Negative, Urine Urobilinogen Normal, Urine Leukocyte Esterase 3+H, Urine RBC TntcH, Urine WBC TntcH, Urine Squamous Epithelial Cells Few, Urine Bacteria ManyH 02/08/17 00:15: Arterial Blood pH 7.218*L, Arterial Blood Partial Pressure CO2 41.9, Arterial Blood Partial Pressure O2 337.9H, Arterial Blood HCO3 16.7L, Arterial Blood Oxygen Saturation 99.3H, Arterial Blood Base Excess -10.4, Adan Test Positive 02/08/17 04:20: White Blood Count 29.7*H, Red Blood Count 2.83L, Hemoglobin 9.2L, Hematocrit 30.6L, Mean Corpuscular Volume 108H, Mean Corpuscular Hemoglobin 32.6H, Mean Corpuscular Hemoglobin Concent 30.0L, Red Cell Distribution Width 26.0H, Platelet Count 53L, Mean Platelet Volume 12.0H, Neutrophils (%) (Auto) , Lymphocytes (%) (Auto) , Monocytes (%) (Auto) , Eosinophils (%) (Auto) , Basophils (%) (Auto) , Neutrophils % (Manual) [Pending], Lymphocytes % (Manual) [Pending], Platelet Estimate [Pending], Platelet Morphology [Pending], Sodium Level 140, Potassium Level 4.7, Chloride Level 110H, Carbon Dioxide Level 18L, Anion Gap 12, Blood Urea Nitrogen 30H, Creatinine 1.2, Estimat Glomerular Filtration Rate , Glucose Level 169#H, Calcium Level 6.4L, Total Bilirubin 0.9, Aspartate Amino Transf (AST/SGOT) 151H, Alanine Aminotransferase (ALT/SGPT) 24, Alkaline Phosphatase 380H, Total Protein 5.5L, Albumin 1.0L, Globulin 4.5, Albumin/Globulin Ratio 0.2L Height (Feet): 5 Height (Inches): 1.00 Weight (Pounds): 142 General Appearance: WD/WN, lethargic, confused Neck: supple Cardiovascular: normal peripheral pulses, normal rate, regular rhythm Respiratory/Chest: chest wall non-tender, crackles/rales, rhonchi - bilaterally Abdomen: normal bowel sounds, non tender, soft, no organomegaly Edema: no edema noted Arm (L), no edema noted Arm (R), no edema noted Leg (L), no edema noted Leg (R), no edema noted Pedal (L), no edema noted Pedal (R), no edema noted Generalized Neurologic: disoriented, unresponsive HONG REYES Feb 08, 2017 07:42
[2017-02-08] MEDS ORDERED: Piperacillin/Tazobactam 3.375 GM in D5W 110 ML IVPB SCH (07:45)
[2017-02-08 08:14] LABS: ABG ALLEN TEST POSITIVE; ABG BASE EXCESS -12.2; ABG PCO2 39.8 mmHg (35.0-45.0)
[2017-02-08] MEDS ORDERED: Metoprolol Succinate XL 25mg tab ORAL SCH (09:00)
[2017-02-08] MEDS ORDERED: Sodium Bicarbonate 50ml Carp IV ONE ×3 (09:00→15:30)
[2017-02-08] MEDS: Eliquis 2.5mg tablet ORAL SCH ×2 (09:00→17:26)
[2017-02-08] MEDS: Docusate 250mg cap ORAL SCH ×2 (09:00→17:26)
--- NOTE | 2017-02-08 09:01 | Consultation ---
Consult Note Consult Note HISTORY OF PRESENT ILLNESS: 71-year-old [place] female. [facility] and has metastatic carcinoma. She has been receiving chemotherapy but apparently was planned for hospice. Patient deteriorated and required BIPAP management and doing poorly and more lethargic. She was hypotensive when admitted to the hospital. She is currently obtunded and acidotic Care in the hospital was reviewed. Discussed with primary MD as well as ICU team and RT. 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 SOCIAL HISTORY: Negative for smoking, alcohol, or substance abuse. resides at SNF ALLERGIES: None. MEDICATIONS: reviewed and reconciled. FAMILY HISTORY: Noncontributory. REVIEW OF SYSTEMS: unable PHYSICAL EXAMINATION: HEENT: Conjunctivae pallor. Oropharynx clear. NECK: Supple. LUNGS: significant rhonchi bilaterally with reduced air entry CARDIAC: Regular rhythm. Normal S1, S2 with no murmur, rub, or gallop. ABDOMEN: Soft. no distention with reduced bowel sounds. No guarding or rebound. EXTREMITIES: With no focal edema. no CC NEURO: poorly responsive Critical Care - Objective Last 24 Hour Vital Signs Date Time Temp Pulse Resp B/P (MAP) Pulse Ox O2 Delivery O2 Flow Rate FiO2 02/08/17 08:00 98.7 112 13 74/55 100 Bi-pap 40 02/08/17 08:00 117 02/08/17 08:00 40 02/08/17 07:12 119 16 99 Facial 40 02/08/17 06:45 117 15 80/51 100 Bi-pap 40 02/08/17 06:30 118 15 82/55 100 Bi-pap 40 02/08/17 06:15 118 15 81/56 99 Bi-pap 40 02/08/17 06:00 119 15 82/56 99 Bi-pap 40 02/08/17 05:45 118 15 81/52 98 Bi-pap 40 02/08/17 05:41 82/58 02/08/17 05:30 119 15 82/58 98 Bi-pap 40 02/08/17 05:26 19 14 99 Facial 40 02/08/17 05:15 119 15 82/58 98 Bi-pap 40 02/08/17 05:00 119 15 84/56 98 Bi-pap 40 02/08/17 04:45 119 15 81/59 98 Bi-pap 40 02/08/17 04:30 116 15 85/57 98 Bi-pap 40 02/08/17 04:15 116 15 85/57 98 Bi-pap 40 02/08/17 04:00 97.4 115 14 81/57 98 Bi-pap 40 02/08/17 04:00 40 02/08/17 04:00 113 02/08/17 03:45 115 15 84/56 98 Bi-pap 40 02/08/17 03:30 115 13 86/47 98 Bi-pap 40 02/08/17 03:15 115 13 83/67 100 Bi-pap 40 02/08/17 03:00 110 14 77/63 100 Bi-pap 40 02/08/17 02:45 114 14 89/54 100 Bi-pap 40 02/08/17 02:42 114 16 100 Facial 40 02/08/17 02:30 112 13 85/48 100 Bi-pap 40 02/08/17 02:15 114 14 85/48 100 Bi-pap 50 02/08/17 02:01 97.9 02/08/17 02:00 116 15 88/45 99 Bi-pap 50 02/08/17 02:00 40 02/08/17 01:53 82/53 02/08/17 01:45 113 14 81/55 100 Bi-pap 50 02/08/17 01:30 115 20 82/53 100 Bi-pap 50 02/08/17 01:15 116 20 115/82 99 Bi-pap 50 02/08/17 01:00 50 02/08/17 01:00 119 25 90/70 99 Bi-pap 50 02/08/17 00:45 117 23 83/46 99 Bi-pap 50 02/08/17 00:43 115 24 100 Facial 50 02/08/17 00:30 117 22 88/47 100 Bi-pap 100 02/08/17 00:15 116 22 83/56 100 Bi-pap 100 02/08/17 00:00 100 02/08/17 00:00 97.9 116 23 113/81 100 Bi-pap 100 02/08/17 00:00 119 02/07/17 23:45 116 23 104/73 100 Bi-pap 100 02/07/17 23:30 116 23 112/67 100 Bi-pap 100 02/07/17 23:15 119 24 84/56 100 Bi-pap 100 02/07/17 23:06 121 22 97 Facial 100 02/07/17 23:00 120 23 88/57 98 Bi-pap 100 02/07/17 23:00 100 02/07/17 22:45 116 23 104/73 100 Bi-pap 100 02/07/17 22:30 116 25 112/67 90 Venturi Mask 14.0 55 02/07/17 22:15 108 25 95/61 90 Venturi Mask 14.0 55 02/07/17 22:00 113 20 67/49 91 Venturi Mask 14.0 55 02/07/17 21:45 110 20 64/36 95 Venturi Mask 14.0 55 02/07/17 21:30 111 20 90/49 99 Venturi Mask 14.0 55 02/07/17 21:15 109 20 90/57 99 Venturi Mask 14.0 55 02/07/17 21:00 111 17 97/73 98 Venturi Mask 14.0 55 02/07/17 21:00 97/73 02/07/17 20:45 110 17 93/63 98 Venturi Mask 14.0 55 02/07/17 20:30 112 17 96/66 98 Venturi Mask 14.0 55 02/07/17 20:15 111 17 96/66 98 Venturi Mask 14.0 55 02/07/17 20:00 98.0 110 18 89/57 98 Venturi Mask 14.0 55 02/07/17 20:00 108 02/07/17 20:00 96/66 02/07/17 19:45 109 17 89/57 98 Venturi Mask 14.0 55 02/07/17 19:30 109 17 123/63 98 Venturi Mask 14.0 55 02/07/17 19:29 79/52 02/07/17 19:18 Venturi Mask 12.0 50 02/07/17 19:17 97 Venturi Mask 12.0 50 02/07/17 19:17 102 24 Nasal Cannula 2.0 28 02/07/17 19:00 108 16 79/52 98 Venturi Mask 14.0 55 02/07/17 18:00 114 18 71/44 98 Venturi Mask 14.0 55 02/07/17 17:00 113 18 71/44 97 Venturi Mask 14.0 55 02/07/17 16:15 97.7 115 20 70/45 96 Venturi Mask 14.0 55 02/07/17 12:00 97.0 108 20 90/58 96 Room Air 2.0 02/07/17 11:30 78/45 02/07/17 11:14 68 20 97 Nasal Cannula 2.0 28 02/07/17 11:07 67 18 96 Nasal Cannula 2.0 28 Micro: Microbiology Date/Time Source Procedure Growth Status 02/05/17 14:45 Urine,Clean Catch Urine Culture - Final NO GROWTH AFTER 48 HOURS Complete Accucheck: 141 Laboratory Tests Test 02/07/17 15:30 02/07/17 16:15 02/07/17 17:00 02/08/17 00:15 White Blood Count 29.1 K/UL (4.8-10.8) *H Red Blood Count 2.66 M/UL (4.20-5.40) L Hemoglobin 8.7 G/DL (12.0-16.0) L Hematocrit 28.7 % (37.0-47.0) L Mean Corpuscular Volume 108 FL (80-99) H Mean Corpuscular Hemoglobin 32.8 PG (27.0-31.0) H Mean Corpuscular Hemoglobin Concent 30.4 G/DL (32.0-36.0) L Red Cell Distribution Width 25.1 % (11.6-14.8) H Platelet Count 39 K/UL (150-450) L Mean Platelet Volume 10.0 FL (6.5-10.1) Neutrophils (%) (Auto) % (45.0-75.0) Lymphocytes (%) (Auto) % (20.0-45.0) Monocytes (%) (Auto) % (1.0-10.0) Eosinophils (%) (Auto) % (0.0-3.0) Basophils (%) (Auto) % (0.0-2.0) Differential Total Cells Counted 100 Neutrophils % (Manual) 90 % (45-75) H Lymphocytes % (Manual) 5 % (20-45) L Monocytes % (Manual) 2 % (1-10) Eosinophils % (Manual) 0 % (0-3) Basophils % (Manual) 0 % (0-2) Band Neutrophils 3 % (0-8) Platelet Estimate Decreased L Platelet Morphology Normal Polychromasia 1+ Hypochromasia 2+ Anisocytosis 3+ Macrocytosis 1+ [place] Cells 1+ Sodium Level 143 MMOL/L (136-145) Potassium Level 4.5 MMOL/L (3.5-5.1) Chloride Level 111 MMOL/L (98-107) H Carbon Dioxide Level 19 MMOL/L (21-32) L Anion Gap 13 mmol/L (5-15) Blood Urea Nitrogen 28 mg/dL (7-18) H Creatinine 0.9 MG/DL (0.55-1.30) Estimat Glomerular Filtration Rate mL/min (>60) Glucose Level 70 MG/DL (74-106) L Calcium Level 6.6 MG/DL (8.5-10.1) L Total Bilirubin 1.1 MG/DL (0.2-1.0) H Direct Bilirubin 0.9 MG/DL (0.0-0.3) H Aspartate Amino Transf (AST/SGOT) 106 U/L (15-37) H Alanine Aminotransferase (ALT/SGPT) 25 U/L (12-78) Alkaline Phosphatase 375 U/L (46-116) H Troponin I 0.015 ng/mL (0.000-0.056) Total Protein 5.2 G/DL (6.4-8.2) L Albumin 1.0 G/DL (3.4-5.0) L Globulin 4.2 g/dL Albumin/Globulin Ratio 0.2 (1.0-2.7) L Arterial Blood pH 7.262 (7.350-7.450) 7.218 (7.350-7.450) Arterial Blood Partial Pressure CO2 43.8 mmHg (35.0-45.0) 41.9 mmHg (35.0-45.0) Arterial Blood Partial Pressure O2 78.1 mmHg (75.0-100.0) 337.9 mmHg (75.0-100.0) H Arterial Blood HCO3 19.3 mmol/L (22.0-26.0) L 16.7 mmol/L (22.0-26.0) L Arterial Blood Oxygen Saturation 93.1 % (92.0-98.0) 99.3 % (92.0-98.0) H Arterial Blood Base Excess -7.3 -10.4 Adan Test Positive Positive Urine Color Red Urine Appearance Cloudy Urine pH 6.5 (4.5-8.0) Urine Specific [place] 1.015 (1.005-1.035) Urine Protein 4+ (NEGATIVE) H Urine Glucose (UA) Negative (NEGATIVE) Urine Ketones 2+ (NEGATIVE) H Urine Occult Blood 5+ (NEGATIVE) H Urine Nitrite Negative (NEGATIVE) Urine Bilirubin Negative (NEGATIVE) Urine Urobilinogen Normal MG/DL (0.0-1.0) Urine Leukocyte Esterase 3+ (NEGATIVE) H Urine RBC Tntc /HPF (0 - 2) H Urine WBC Tntc /HPF (0 - 2) H Urine Squamous Epithelial Cells Few /LPF (NONE/OCC) Urine Bacteria Many /HPF (NONE) H Test 02/08/17 04:20 02/08/17 08:05 White Blood Count 29.7 K/UL (4.8-10.8) *H Red Blood Count 2.83 M/UL (4.20-5.40) L Hemoglobin 9.2 G/DL (12.0-16.0) L Hematocrit 30.6 % (37.0-47.0) L Mean Corpuscular Volume 108 FL (80-99) H Mean Corpuscular Hemoglobin 32.6 PG (27.0-31.0) H Mean Corpuscular Hemoglobin Concent 30.0 G/DL (32.0-36.0) L Red Cell Distribution Width 26.0 % (11.6-14.8) H Platelet Count 53 K/UL (150-450) L Mean Platelet Volume 12.0 FL (6.5-10.1) H Neutrophils (%) (Auto) % (45.0-75.0) Lymphocytes (%) (Auto) % (20.0-45.0) Monocytes (%) (Auto) % (1.0-10.0) Eosinophils (%) (Auto) % (0.0-3.0) Basophils (%) (Auto) % (0.0-2.0) Neutrophils % (Manual) Pending Lymphocytes % (Manual) Pending Platelet Estimate Pending Platelet Morphology Pending Sodium Level 140 MMOL/L (136-145) Potassium Level 4.7 MMOL/L (3.5-5.1) Chloride Level 110 MMOL/L (98-107) H Carbon Dioxide Level 18 MMOL/L (21-32) L Anion Gap 12 mmol/L (5-15) Blood Urea Nitrogen 30 mg/dL (7-18) H Creatinine 1.2 MG/DL (0.55-1.30) Estimat Glomerular Filtration Rate mL/min (>60) Glucose Level 169 MG/DL (74-106) #H Calcium Level 6.4 MG/DL (8.5-10.1) L Total Bilirubin 0.9 MG/DL (0.2-1.0) Aspartate Amino Transf (AST/SGOT) 151 U/L (15-37) H Alanine Aminotransferase (ALT/SGPT) 24 U/L (12-78) Alkaline Phosphatase 380 U/L (46-116) H Total Protein 5.5 G/DL (6.4-8.2) L Albumin 1.0 G/DL (3.4-5.0) L Globulin 4.5 g/dL Albumin/Globulin Ratio 0.2 (1.0-2.7) L Arterial Blood pH 7.197 (7.350-7.450) Arterial Blood Partial Pressure CO2 39.8 mmHg (35.0-45.0) Arterial Blood Partial Pressure O2 106.5 mmHg (75.0-100.0) H Arterial Blood HCO3 15.1 mmol/L (22.0-26.0) L Arterial Blood Oxygen Saturation 97.1 % (92.0-98.0) Arterial Blood Base Excess -12.2 Adan Test Positive IMPRESSION: 1. Acute respiratory failure. 2. Hypotension on pressors 3. Hyponatremia. 4. Prerenal azotemia. 5. Metastatic bladder cancer with history of ureteral obstruction. 6. Severe protein-calorie malnutrition. 7. Leukocytosis with likelyhood of sepsis 8. Anemia. 9. History of upper extremity deep vein thrombosis on anticoagulation. 10. Thrombocytopenia. 11. significant pulmonary congestion 12. Acute renal failure PLAN: care noted IV antibiotics noted respiratory care BIPAP not effective; intubation needed SNF meds supportive care suction pressors hyperventilate oxygen therapy prognosis poor and recommend DNR medications/laboratory data/nursing notes/ICU care reviewed in detail note reviewed and edited care discussed with RN and RT GAGAN NICHOLE Feb 08, 2017 09:01
--- NOTE | 2017-02-08 09:04 | Diagnostic Imaging Report ---
Indication: Shortness of breath Technique: One view of the chest Comparison: 02/06/2017 Findings: Again demonstrated are bilateral pleural effusions, increased from the prior exam. Interstitial congestion and patchy bilateral airspace opacities have also increased in the prior exam. There is increased right basilar atelectasis and/or consolidation. Left arm catheter remains. The top of a pigtail catheter, probably a nephroureteral stent, is incidentally seen in the midabdomen. Right axillary surgical clips are again demonstrated Impression: Increasing bilateral pleural effusions, right basilar atelectasis and consolidation, and increased bilateral perihilar interstitial and airspace opacities, over one day
--- NOTE | 2017-02-08 09:37 | Emergency Room Report ---
History of Present Illness General Chief Complaint: Abnormal Labs Source: Patient, Medical Record, PMD Present Illness Allergies: Coded Allergies: No Known Allergies (Unverified , 01/31/17) Patient History Last Menstrual Period: NA Now: No Nursing Documentation-PMH Hx Cancer: Yes Hx Neurological Problems: Yes Hx Peripheral Neuropathy: Yes Hx Syncope: Yes Hx Weakness: Yes - Failure to thrive, Physical Exam Vital Signs Date Time Temp Pulse Resp B/P (MAP) Pulse Ox O2 Delivery O2 Flow Rate FiO2 01/31/17 20:30 97.3 94 18 126/96 100 Room Air 02/01/17 07:56 02/07/17 08:37 28 Procedures Critical Care Time Critical Care Time 45 minutes CC time includes discussion with Vernon Guzmán and Cristin, review of ABG, vitals, code status, EMR ABG was pH 7.19, PCo2 and PA02 normal for Fi02 of 40% Vitals stable in ICU. RR 16. o2 sat 100% Patient obtunded on exam Vernon Guzmán and Cristin requesting intubation for ?lactic acidosis from presumed sepsis Verified code status with them I expressed my concern that patient would code if we intubate and recommended maxing out levophed, giving bicarb and redoing ABG in 1 hour but both physicians strongly requesting intubation at this time. CPR/Code Blue CPR/Code Blue Narrative Patient had intubation with passage of ET thru vocal cords visualized on Glidescope Bilateral breath sounds o2 sat 100% 10 min after, patient's O2 dropped, volumes not maintained on ventilator ET tube was removed and patient reintubated with visualization on glidescope Patient then coded with loss of pulse Had 1 round of CPR with epi and bicarb given with ROSC detected at 920, 917 on rhythm strip Initial ET tube placement was pulled back to 22cm after CXR Intubation Intubation : Consent: Emergent Intubation Method: orotracheal Tube Size (cm): 7.5 Medications: Etomidate, Rocuronium Breath Sounds after Intubation: equal Intubation Complications: no complications Post Intubation Xray: Yes Attempts: Other - 2 Patient Tolerated: Well Complications: Other - Coded after initial intubation, required reintubation Medical Decision Making Diagnostic Impression: Primary Impression: Hypoglycemia Additional Impressions: Neutrophilic leukemoid reaction Weakness FTT (failure to thrive) in adult Last Vital Signs Date Time Temp Pulse Resp B/P (MAP) Pulse Ox O2 Delivery O2 Flow Rate FiO2 02/08/17 08:00 98.7 112 13 74/55 100 Bi-pap 40 02/07/17 22:30 14.0 Disposition: ADMITTED INPATIENT Condition: Serious Referrals: NON PHYSICIAN (PCP) Patient Instructions: Smoking Cessation, Tips for Success, [id number], Failure to Thrive, Adult, [id number] JOELLE OLIVEIRA M.D. Feb 08, 2017 09:37
[2017-02-08] MEDS ORDERED: Zosyn 3.375gm/50ml Premix 50 ML IVPB SCH (10:00)
[2017-02-08] MEDS: Norepinephrine Bitartrate 8 MG in D5W 500ml 550 ML IV SCH ×3 (10:01→21:00)
[2017-02-08 10:13] LABS: ANISOCYTOSIS 3+; BAND NEUTROPHILS % (MANUAL) 6 % (0-8); BASOPHILS % (MANUAL) 0 % (0-2); EOSINOPHILS % (MANUAL) 0 % (0-3); LYMPHOCYTES % (MANUAL) 2 % (20-45); MACROCYTES 1+; NEUTROPHILS % (MANUAL) 91 % (45-75); PLATELET ESTIMATE DECREASED; PLATELET MORPHOLOGY NORMAL; TOTAL CELLS COUNTED 100
[2017-02-08 10:14] LABS: BURR CELLS OCCASIONAL; HYPOCHROMASIA 2+
[2017-02-08] MEDS: Pantoprazole Inj IVP SCH (10:14)
[2017-02-08 10:15] LABS: POLYCHROMASIA 1+
--- NOTE | 2017-02-08 10:33 | Diagnostic Imaging Report ---
Indication: CODE BLUE, status post intubation Technique: One view of the chest with repeat imaging Comparison: none Findings: Initial images demonstrate malposition of the endotracheal tube in the right mainstem bronchus. Subsequent final image demonstrates good position of endotracheal tube, tip approximately 3 cm above the mojgan. Volume loss in the left lung on initial images is improved on the final image, although there is still some left lung volume loss and diffuse parenchymal opacity. There is some consolidation and atelectasis at the right lung base as well. Left arm PICC and right jugular central venous catheter remain. Transcutaneous pacemaker paddles are present. The heart size is normal. Axillary surgical clips are noted.. Impression: Initial intubation of the right mainstem bronchus, subsequent corrected and satisfactory. Left lung volume loss and fairly extensive consolidation Right basilar consolidation and atelectasis Other stable findings as described
[2017-02-08 10:44] LABS: ABG PCO2 40.8 mmHg (35.0-45.0)
--- NOTE | 2017-02-08 10:44 | Diagnostic Imaging Report ---
Indication: Post nasogastric tube placement Technique: Supine view of the abdomen with repeat imaging Comparison: none Findings: Initial image demonstrates a nasogastric tube in place, tip at the level gastric fundus, proximal port at the level gastroesophageal junction. Subsequent image demonstrates slight advancement and improved position. Bowel gas pattern is unremarkable. There are bilateral nephroureteral stents. Impression: Satisfactory nasogastric intubation Other findings as noted
[2017-02-08 10:45] LABS: ABG ALLEN TEST POSITIVE
[2017-02-08] MEDS: Phenylephrine 50 MG in D5W 245 ML IV SCH ×4 (11:07→23:46)
--- NOTE | 2017-02-08 11:28 | Infectious Diseases Prog Note ---
Assessment/Plan Assessment/Plan antibiotics : vancomycin iv, zosyn A 1. citrobacter UTI 2. pneumonia 3. metastatic bladder cancer 4. leucocytosis 5. thrombocytopenia 6. rectal VRE colonization 7. respiratory failure P 1. vancomycin iv, zosyn started 2. sputum cultures 3. will follow up cultures Subjective ROS Limited/Unobtainable: Yes Allergies: Coded Allergies: No Known Allergies (Unverified , 01/31/17) Objective Vital Signs Last 24 Hour Vital Signs Date Time Temp Pulse Resp B/P (MAP) Pulse Ox O2 Delivery O2 Flow Rate FiO2 02/08/17 11:07 115 83/43 02/08/17 10:51 117 20 50 02/08/17 10:01 66/32 02/08/17 09:30 131 20 100 02/08/17 09:00 126 81/65 02/08/17 08:00 98.7 112 13 74/55 100 Bi-pap 40 02/08/17 08:00 117 02/08/17 08:00 40 02/08/17 07:12 119 16 99 Facial 40 02/08/17 06:45 117 15 80/51 100 Bi-pap 40 02/08/17 06:30 118 15 82/55 100 Bi-pap 40 02/08/17 06:15 118 15 81/56 99 Bi-pap 40 02/08/17 06:00 119 15 82/56 99 Bi-pap 40 02/08/17 05:45 118 15 81/52 98 Bi-pap 40 02/08/17 05:41 82/58 02/08/17 05:30 119 15 82/58 98 Bi-pap 40 02/08/17 05:26 19 14 99 Facial 40 02/08/17 05:15 119 15 82/58 98 Bi-pap 40 02/08/17 05:00 119 15 84/56 98 Bi-pap 40 02/08/17 04:45 119 15 81/59 98 Bi-pap 40 02/08/17 04:30 116 15 85/57 98 Bi-pap 40 02/08/17 04:15 116 15 85/57 98 Bi-pap 40 02/08/17 04:00 97.4 115 14 81/57 98 Bi-pap 40 02/08/17 04:00 40 02/08/17 04:00 113 02/08/17 03:45 115 15 84/56 98 Bi-pap 40 02/08/17 03:30 115 13 86/47 98 Bi-pap 40 02/08/17 03:15 115 13 83/67 100 Bi-pap 40 02/08/17 03:00 110 14 77/63 100 Bi-pap 40 02/08/17 02:45 114 14 89/54 100 Bi-pap 40 02/08/17 02:42 114 16 100 Facial 40 02/08/17 02:30 112 13 85/48 100 Bi-pap 40 02/08/17 02:15 114 14 85/48 100 Bi-pap 50 02/08/17 02:01 97.9 02/08/17 02:00 116 15 88/45 99 Bi-pap 50 02/08/17 02:00 40 02/08/17 01:53 82/53 02/08/17 01:45 113 14 81/55 100 Bi-pap 50 02/08/17 01:30 115 20 82/53 100 Bi-pap 50 02/08/17 01:15 116 20 115/82 99 Bi-pap 50 02/08/17 01:00 50 02/08/17 01:00 119 25 90/70 99 Bi-pap 50 02/08/17 00:45 117 23 83/46 99 Bi-pap 50 02/08/17 00:43 115 24 100 Facial 50 02/08/17 00:30 117 22 88/47 100 Bi-pap 100 02/08/17 00:15 116 22 83/56 100 Bi-pap 100 02/08/17 00:00 100 02/08/17 00:00 97.9 116 23 113/81 100 Bi-pap 100 02/08/17 00:00 119 02/07/17 23:45 116 23 104/73 100 Bi-pap 100 02/07/17 23:30 116 23 112/67 100 Bi-pap 100 02/07/17 23:15 119 24 84/56 100 Bi-pap 100 02/07/17 23:06 121 22 97 Facial 100 02/07/17 23:00 120 23 88/57 98 Bi-pap 100 02/07/17 23:00 100 02/07/17 22:45 116 23 104/73 100 Bi-pap 100 02/07/17 22:30 116 25 112/67 90 Venturi Mask 14.0 55 02/07/17 22:15 108 25 95/61 90 Venturi Mask 14.0 55 02/07/17 22:00 113 20 67/49 91 Venturi Mask 14.0 55 02/07/17 21:45 110 20 64/36 95 Venturi Mask 14.0 55 02/07/17 21:30 111 20 90/49 99 Venturi Mask 14.0 55 02/07/17 21:15 109 20 90/57 99 Venturi Mask 14.0 55 02/07/17 21:00 111 17 97/73 98 Venturi Mask 14.0 55 02/07/17 21:00 97/73 02/07/17 20:45 110 17 93/63 98 Venturi Mask 14.0 55 02/07/17 20:30 112 17 96/66 98 Venturi Mask 14.0 55 02/07/17 20:15 111 17 96/66 98 Venturi Mask 14.0 55 02/07/17 20:00 98.0 110 18 89/57 98 Venturi Mask 14.0 55 02/07/17 20:00 108 02/07/17 20:00 96/66 02/07/17 19:45 109 17 89/57 98 Venturi Mask 14.0 55 02/07/17 19:30 109 17 123/63 98 Venturi Mask 14.0 55 02/07/17 19:29 79/52 02/07/17 19:18 Venturi Mask 12.0 50 02/07/17 19:17 97 Venturi Mask 12.0 50 02/07/17 19:17 102 24 Nasal Cannula 2.0 28 02/07/17 19:00 108 16 79/52 98 Venturi Mask 14.0 55 02/07/17 18:00 114 18 71/44 98 Venturi Mask 14.0 55 02/07/17 17:00 113 18 71/44 97 Venturi Mask 14.0 55 02/07/17 16:15 97.7 115 20 70/45 96 Venturi Mask 14.0 55 02/07/17 12:00 97.0 108 20 90/58 96 Room Air 2.0 02/07/17 11:30 78/45 Height (Feet): 5 Height (Inches): 1.00 Weight (Pounds): 142 HEENT: other - intubated Respiratory/Chest: lungs clear Cardiovascular: normal rate, regular rhythm, no gallop/murmur Abdomen: soft, non tender Extremities: other - + edema, right IJ catheter Microbiology Date/Time Source Procedure Growth Status 02/05/17 14:45 Urine,Clean Catch Urine Culture - Final NO GROWTH AFTER 48 HOURS Complete Laboratory Tests Test 02/07/17 15:30 02/07/17 16:15 02/07/17 17:00 02/08/17 00:15 White Blood Count 29.1 K/UL (4.8-10.8) *H Red Blood Count 2.66 M/UL (4.20-5.40) L Hemoglobin 8.7 G/DL (12.0-16.0) L Hematocrit 28.7 % (37.0-47.0) L Mean Corpuscular Volume 108 FL (80-99) H Mean Corpuscular Hemoglobin 32.8 PG (27.0-31.0) H Mean Corpuscular Hemoglobin Concent 30.4 G/DL (32.0-36.0) L Red Cell Distribution Width 25.1 % (11.6-14.8) H Platelet Count 39 K/UL (150-450) L Mean Platelet Volume 10.0 FL (6.5-10.1) Neutrophils (%) (Auto) % (45.0-75.0) Lymphocytes (%) (Auto) % (20.0-45.0) Monocytes (%) (Auto) % (1.0-10.0) Eosinophils (%) (Auto) % (0.0-3.0) Basophils (%) (Auto) % (0.0-2.0) Differential Total Cells Counted 100 Neutrophils % (Manual) 90 % (45-75) H Lymphocytes % (Manual) 5 % (20-45) L Monocytes % (Manual) 2 % (1-10) Eosinophils % (Manual) 0 % (0-3) Basophils % (Manual) 0 % (0-2) Band Neutrophils 3 % (0-8) Platelet Estimate Decreased L Platelet Morphology Normal Polychromasia 1+ Hypochromasia 2+ Anisocytosis 3+ Macrocytosis 1+ [place] Cells 1+ Sodium Level 143 MMOL/L (136-145) Potassium Level 4.5 MMOL/L (3.5-5.1) Chloride Level 111 MMOL/L (98-107) H Carbon Dioxide Level 19 MMOL/L (21-32) L Anion Gap 13 mmol/L (5-15) Blood Urea Nitrogen 28 mg/dL (7-18) H Creatinine 0.9 MG/DL (0.55-1.30) Estimat Glomerular Filtration Rate mL/min (>60) Glucose Level 70 MG/DL (74-106) L Calcium Level 6.6 MG/DL (8.5-10.1) L Total Bilirubin 1.1 MG/DL (0.2-1.0) H Direct Bilirubin 0.9 MG/DL (0.0-0.3) H Aspartate Amino Transf (AST/SGOT) 106 U/L (15-37) H Alanine Aminotransferase (ALT/SGPT) 25 U/L (12-78) Alkaline Phosphatase 375 U/L (46-116) H Troponin I 0.015 ng/mL (0.000-0.056) Total Protein 5.2 G/DL (6.4-8.2) L Albumin 1.0 G/DL (3.4-5.0) L Globulin 4.2 g/dL Albumin/Globulin Ratio 0.2 (1.0-2.7) L Arterial Blood pH 7.262 (7.350-7.450) 7.218 (7.350-7.450) Arterial Blood Partial Pressure CO2 43.8 mmHg (35.0-45.0) 41.9 mmHg (35.0-45.0) Arterial Blood Partial Pressure O2 78.1 mmHg (75.0-100.0) 337.9 mmHg (75.0-100.0) H Arterial Blood HCO3 19.3 mmol/L (22.0-26.0) L 16.7 mmol/L (22.0-26.0) L Arterial Blood Oxygen Saturation 93.1 % (92.0-98.0) 99.3 % (92.0-98.0) H Arterial Blood Base Excess -7.3 -10.4 Adan Test Positive Positive Urine Color Red Urine Appearance Cloudy Urine pH 6.5 (4.5-8.0) Urine Specific [place] 1.015 (1.005-1.035) Urine Protein 4+ (NEGATIVE) H Urine Glucose (UA) Negative (NEGATIVE) Urine Ketones 2+ (NEGATIVE) H Urine Occult Blood 5+ (NEGATIVE) H Urine Nitrite Negative (NEGATIVE) Urine Bilirubin Negative (NEGATIVE) Urine Urobilinogen Normal MG/DL (0.0-1.0) Urine Leukocyte Esterase 3+ (NEGATIVE) H Urine RBC Tntc /HPF (0 - 2) H Urine WBC Tntc /HPF (0 - 2) H Urine Squamous Epithelial Cells Few /LPF (NONE/OCC) Urine Bacteria Many /HPF (NONE) H Test 02/08/17 04:20 02/08/17 08:05 02/08/17 10:30 White Blood Count 29.7 K/UL (4.8-10.8) *H Red Blood Count 2.83 M/UL (4.20-5.40) L Hemoglobin 9.2 G/DL (12.0-16.0) L Hematocrit 30.6 % (37.0-47.0) L Mean Corpuscular Volume 108 FL (80-99) H Mean Corpuscular Hemoglobin 32.6 PG (27.0-31.0) H Mean Corpuscular Hemoglobin Concent 30.0 G/DL (32.0-36.0) L Red Cell Distribution Width 26.0 % (11.6-14.8) H Platelet Count 53 K/UL (150-450) L Mean Platelet Volume 12.0 FL (6.5-10.1) H Neutrophils (%) (Auto) % (45.0-75.0) Lymphocytes (%) (Auto) % (20.0-45.0) Monocytes (%) (Auto) % (1.0-10.0) Eosinophils (%) (Auto) % (0.0-3.0) Basophils (%) (Auto) % (0.0-2.0) Differential Total Cells Counted 100 Neutrophils % (Manual) 91 % (45-75) H Lymphocytes % (Manual) 2 % (20-45) L Monocytes % (Manual) 1 % (1-10) Eosinophils % (Manual) 0 % (0-3) Basophils % (Manual) 0 % (0-2) Band Neutrophils 6 % (0-8) Platelet Estimate Decreased L Platelet Morphology Normal Polychromasia 1+ Hypochromasia 2+ Anisocytosis 3+ Macrocytosis 1+ [place] Cells Occasional Sodium Level 140 MMOL/L (136-145) Potassium Level 4.7 MMOL/L (3.5-5.1) Chloride Level 110 MMOL/L (98-107) H Carbon Dioxide Level 18 MMOL/L (21-32) L Anion Gap 12 mmol/L (5-15) Blood Urea Nitrogen 30 mg/dL (7-18) H Creatinine 1.2 MG/DL (0.55-1.30) Estimat Glomerular Filtration Rate mL/min (>60) Glucose Level 169 MG/DL (74-106) #H Calcium Level 6.4 MG/DL (8.5-10.1) L Total Bilirubin 0.9 MG/DL (0.2-1.0) Aspartate Amino Transf (AST/SGOT) 151 U/L (15-37) H Alanine Aminotransferase (ALT/SGPT) 24 U/L (12-78) Alkaline Phosphatase 380 U/L (46-116) H Total Protein 5.5 G/DL (6.4-8.2) L Albumin 1.0 G/DL (3.4-5.0) L Globulin 4.5 g/dL Albumin/Globulin Ratio 0.2 (1.0-2.7) L Arterial Blood pH 7.197 (7.350-7.450) 7.150 (7.350-7.450) Arterial Blood Partial Pressure CO2 39.8 mmHg (35.0-45.0) 40.8 mmHg (35.0-45.0) Arterial Blood Partial Pressure O2 106.5 mmHg (75.0-100.0) H 166.8 mmHg (75.0-100.0) H Arterial Blood HCO3 15.1 mmol/L (22.0-26.0) L 13.9 mmol/L (22.0-26.0) L Arterial Blood Oxygen Saturation 97.1 % (92.0-98.0) 98.5 % (92.0-98.0) H Arterial Blood Base Excess -12.2 -14.0 Adan Test Positive Positive KAMAR MOSLEY Feb 08, 2017 11:28
--- NOTE | 2017-02-08 11:32 | Diagnostic Imaging Report ---
Indication: Post line placement Technique: One view of the chest Comparison: 3 hours earlier Findings: Interim placement right jugular central venous catheter, tip of which projects at the level of the high right atrium. There are right axillary surgical clips again demonstrated. Extensive left lung left, less extensive right lung parenchymal disease is unchanged. There is no pneumothorax Impression: Satisfactory central line placement. No radiographic evidence complication Other stable findings as described
[2017-02-08 13:27] LABS: ABG PCO2 39.8 mmHg (35.0-45.0)
[2017-02-08 13:28] LABS: ABG ALLEN TEST POSITIVE; ABG BASE EXCESS -10.4
[2017-02-08] MEDS ORDERED: cefTRIAXone 1 GM in D5W 55 ML IVPB SCH (14:00)
[2017-02-08] MEDS: Vancomycin 750mg/NS 250ml 250 ML IVPB SCH (17:26)
[2017-02-08] MEDS: Piperacillin/Tazobactam 3.375 GM in D5W 55 ML IVPB SCH (19:46)
[2017-02-08] MEDS: Dyna-Hex 2% Top Sol 2oz TOPIC SCH (20:00)
[2017-02-09] VITALS (79 sets, daily range): BP systolic 32–106; BP diastolic 11–84
--- NOTE | 2017-02-09 00:07 | General Progress Note ---
Assessment/Plan Status: unchanged, deteriorating Assessment/Plan the pt lacks capacity. I believe the pt's wish/right should be respected. The pt expressed DNR when she was alert and oriented in past. Subjective Allergies: Coded Allergies: No Known Allergies (Unverified , 01/31/17) Subjective the pt is confused and lacks capacity, the pt is not able to understand process appreciate nor communicate appropriately. When the pt was lucid she expressed that she does not want DNR and she would prefer palliative care. Objective Last 24 Hour Vital Signs Date Time Temp Pulse Resp B/P (MAP) Pulse Ox O2 Delivery O2 Flow Rate FiO2 02/08/17 23:46 120 68/24 02/08/17 23:08 120 27 50 02/08/17 22:00 121 24 64/39 100 Mechanical Ventilator 50 02/08/17 21:45 121 24 85/69 100 Mechanical Ventilator 50 02/08/17 21:30 121 24 91/76 100 Mechanical Ventilator 50 02/08/17 21:15 121 24 81/50 100 Mechanical Ventilator 50 02/08/17 21:08 118 25 50 02/08/17 21:00 67/51 02/08/17 21:00 117 24 55/43 100 Mechanical Ventilator 50 02/08/17 20:45 116 24 67/51 100 Mechanical Ventilator 50 02/08/17 20:30 116 24 96/80 100 Mechanical Ventilator 50 02/08/17 20:15 117 24 63/42 100 Mechanical Ventilator 50 02/08/17 20:00 115 02/08/17 20:00 50 02/08/17 20:00 96.2 115 24 84/62 100 Mechanical Ventilator 50 02/08/17 19:45 120 24 72/32 100 Mechanical Ventilator 50 02/08/17 19:43 120 62/43 02/08/17 19:30 119 24 62/43 100 Mechanical Ventilator 50 02/08/17 19:15 118 24 64/47 100 Mechanical Ventilator 50 02/08/17 19:00 120 24 68/43 100 Mechanical Ventilator 50 02/08/17 18:59 119 24 50 02/08/17 18:00 117 24 66/45 100 Mechanical Ventilator 50 02/08/17 17:45 117 26 57/28 99 Mechanical Ventilator 50 02/08/17 17:30 120 25 68/37 99 Mechanical Ventilator 50 11/15/17 17:15 120 26 70/49 99 Mechanical Ventilator 50 02/08/17 17:00 120 26 69/44 99 Mechanical Ventilator 50 02/08/17 16:46 120 24 50 02/08/17 16:45 119 27 76/46 100 Mechanical Ventilator 50 02/08/17 16:30 119 27 71/39 99 Mechanical Ventilator 50 02/08/17 16:15 118 27 74/38 99 Mechanical Ventilator 50 02/08/17 16:00 98.5 118 28 71/43 99 Mechanical Ventilator 50 02/08/17 16:00 117 02/08/17 16:00 50 02/08/17 15:45 120 26 69/24 100 Mechanical Ventilator 50 02/08/17 15:44 119 66/47 02/08/17 15:30 119 24 66/47 99 Mechanical Ventilator 50 02/08/17 15:15 119 25 58/40 99 Mechanical Ventilator 50 02/08/17 15:15 119 24 50 02/08/17 15:00 118 23 65/46 97 Mechanical Ventilator 50 02/08/17 14:45 118 20 61/49 97 Mechanical Ventilator 50 02/08/17 14:30 119 22 68/43 97 Mechanical Ventilator 50 02/08/17 14:15 119 24 82/15 97 Mechanical Ventilator 50 02/08/17 14:00 120 24 32/15 96 Mechanical Ventilator 50 02/08/17 13:45 73/56 02/08/17 13:45 118 24 73/56 98 Mechanical Ventilator 50 02/08/17 13:30 112 24 59/41 98 Mechanical Ventilator 50 02/08/17 13:15 111 24 72/53 96 Mechanical Ventilator 50 02/08/17 13:12 114 24 50 02/08/17 13:00 116 24 72/53 97 Mechanical Ventilator 50 02/08/17 12:45 118 24 66/48 96 Mechanical Ventilator 50 02/08/17 12:30 118 24 75/45 99 Mechanical Ventilator 50 02/08/17 12:15 115 24 76/58 100 Mechanical Ventilator 50 02/08/17 12:00 98.6 115 24 80/48 99 Mechanical Ventilator 50 02/08/17 12:00 117 02/08/17 12:00 50 02/08/17 11:45 116 20 83/60 100 Mechanical Ventilator 50 02/08/17 11:30 115 20 83/61 100 Mechanical Ventilator 50 02/08/17 11:15 115 20 88/50 100 Mechanical Ventilator 50 02/08/17 11:07 115 83/43 02/08/17 11:00 114 20 83/43 100 Mechanical Ventilator 50 02/08/17 10:51 117 20 50 02/08/17 10:45 115 20 62/22 100 Mechanical Ventilator 50 02/08/17 10:30 116 20 83/50 100 Mechanical Ventilator 100 02/08/17 10:15 119 20 69/49 100 Mechanical Ventilator 100 02/08/17 10:01 66/32 02/08/17 10:00 124 20 68/46 100 Mechanical Ventilator 100 02/08/17 09:45 129 20 67/46 100 Mechanical Ventilator 100 02/08/17 09:30 100 02/08/17 09:30 131 20 100 02/08/17 09:30 135 20 101/67 100 Mechanical Ventilator 100 02/08/17 09:15 114 20 209/81 100 Bi-pap 40 02/08/17 09:00 119 15 81/65 100 Bi-pap 40 02/08/17 09:00 126 81/65 02/08/17 08:45 119 15 89/63 100 Bi-pap 40 02/08/17 08:30 116 13 66/32 100 Bi-pap 40 02/08/17 08:15 117 14 80/45 100 Bi-pap 40 02/08/17 08:00 98.7 112 13 74/55 100 Bi-pap 40 02/08/17 08:00 117 02/08/17 08:00 40 02/08/17 07:45 118 13 80/61 100 Bi-pap 40 02/08/17 07:30 117 13 84/61 100 Bi-pap 40 02/08/17 07:15 118 12 82/59 100 Bi-pap 40 02/08/17 07:12 119 16 99 Facial 40 02/08/17 07:00 119 12 82/60 99 Bi-pap 40 02/08/17 06:45 117 15 80/51 100 Bi-pap 40 02/08/17 06:30 118 15 82/55 100 Bi-pap 40 02/08/17 06:15 118 15 81/56 99 Bi-pap 40 02/08/17 06:00 119 15 82/56 99 Bi-pap 40 02/08/17 05:45 118 15 81/52 98 Bi-pap 40 02/08/17 05:41 82/58 02/08/17 05:30 119 15 82/58 98 Bi-pap 40 02/08/17 05:26 19 14 99 Facial 40 02/08/17 05:15 119 15 82/58 98 Bi-pap 40 02/08/17 05:00 119 15 84/56 98 Bi-pap 40 02/08/17 04:45 119 15 81/59 98 Bi-pap 40 02/08/17 04:30 116 15 85/57 98 Bi-pap 40 02/08/17 04:15 116 15 85/57 98 Bi-pap 40 02/08/17 04:00 97.4 115 14 81/57 98 Bi-pap 40 02/08/17 04:00 40 02/08/17 04:00 113 02/08/17 03:45 115 15 84/56 98 Bi-pap 40 02/08/17 03:30 115 13 86/47 98 Bi-pap 40 02/08/17 03:15 115 13 83/67 100 Bi-pap 40 02/08/17 03:00 110 14 77/63 100 Bi-pap 40 02/08/17 02:45 114 14 89/54 100 Bi-pap 40 02/08/17 02:42 114 16 100 Facial 40 02/08/17 02:30 112 13 85/48 100 Bi-pap 40 02/08/17 02:15 114 14 85/48 100 Bi-pap 50 02/08/17 02:01 97.9 02/08/17 02:00 116 15 88/45 99 Bi-pap 50 02/08/17 02:00 40 02/08/17 01:53 82/53 02/08/17 01:45 113 14 81/55 100 Bi-pap 50 02/08/17 01:30 115 20 82/53 100 Bi-pap 50 02/08/17 01:15 116 20 115/82 99 Bi-pap 50 02/08/17 01:00 50 02/08/17 01:00 119 25 90/70 99 Bi-pap 50 02/08/17 00:45 117 23 83/46 99 Bi-pap 50 02/08/17 00:43 115 24 100 Facial 50 02/08/17 00:30 117 22 88/47 100 Bi-pap 100 02/08/17 00:15 116 22 83/56 100 Bi-pap 100 Laboratory Tests 02/08/17 00:15: Arterial Blood pH 7.218*L, Arterial Blood Partial Pressure CO2 41.9, Arterial Blood Partial Pressure O2 337.9H, Arterial Blood HCO3 16.7L, Arterial Blood Oxygen Saturation 99.3H, Arterial Blood Base Excess -10.4, Adan Test Positive 02/08/17 04:20: White Blood Count 29.7*H, Red Blood Count 2.83L, Hemoglobin 9.2L, Hematocrit 30.6L, Mean Corpuscular Volume 108H, Mean Corpuscular Hemoglobin 32.6H, Mean Corpuscular Hemoglobin Concent 30.0L, Red Cell Distribution Width 26.0H, Platelet Count 53L, Mean Platelet Volume 12.0H, Neutrophils (%) (Auto) , Lymphocytes (%) (Auto) , Monocytes (%) (Auto) , Eosinophils (%) (Auto) , Basophils (%) (Auto) , Differential Total Cells Counted 100, Neutrophils % ( Manual) 91H, Lymphocytes % (Manual) 2L, Monocytes % (Manual) 1, Eosinophils % ( Manual) 0, Basophils % (Manual) 0, Band Neutrophils 6, Platelet Estimate DecreasedL, Platelet Morphology Normal, Polychromasia 1+, Hypochromasia 2+, Anisocytosis 3+, Macrocytosis 1+, [place] Cells Occasional, Sodium Level 140, Potassium Level 4.7, Chloride Level 110H, Carbon Dioxide Level 18L, Anion Gap 12 , Blood Urea Nitrogen 30H, Creatinine 1.2, Estimat Glomerular Filtration Rate , Glucose Level 169#H, Calcium Level 6.4L, Total Bilirubin 0.9, Aspartate Amino Transf (AST/SGOT) 151H, Alanine Aminotransferase (ALT/SGPT) 24, Alkaline Phosphatase 380H, Total Protein 5.5L, Albumin 1.0L, Globulin 4.5, Albumin/ Globulin Ratio 0.2L 02/08/17 08:05: Arterial Blood pH 7.197*L, Arterial Blood Partial Pressure CO2 39.8, Arterial Blood Partial Pressure O2 106.5H, Arterial Blood HCO3 15.1L, Arterial Blood Oxygen Saturation 97.1, Arterial Blood Base Excess -12.2, Adan Test Positive 02/08/17 10:30: Arterial Blood pH 7.150*L, Arterial Blood Partial Pressure CO2 40.8, Arterial Blood Partial Pressure O2 166.8H, Arterial Blood HCO3 13.9L, Arterial Blood Oxygen Saturation 98.5H, Arterial Blood Base Excess -14.0, Adan Test Positive 02/08/17 13:15: Arterial Blood pH 7.232*L, Arterial Blood Partial Pressure CO2 39.8, Arterial Blood Partial Pressure O2 74.3L, Arterial Blood HCO3 16.4L, Arterial Blood Oxygen Saturation 92.7, Arterial Blood Base Excess -10.4, Adan Test Positive Height (Feet): 5 Height (Inches): 1.00 Weight (Pounds): 142 General Appearance: no apparent distress, confused, cachetic Neurologic: disoriented, unresponsive, depressed affect Radha Lester M.D. Feb 09, 2017 00:07
[2017-02-09] MEDS: Piperacillin/Tazobactam 3.375 GM in D5W 55 ML IVPB SCH ×3 (01:31→18:18)
[2017-02-09] MEDS: Norepinephrine Bitartrate 8 MG in D5W 500ml 550 ML IV SCH ×5 (01:31→21:16)
--- NOTE | 2017-02-09 02:15 | Progress Note ---
DATE: 02/08/2017 CARDIOLOGY PROGRESS NOTE SUBJECTIVE: The patient refused. She is orally intubated and mechanically ventilated. She is hypotensive on 2 pressors. She is poorly responsive. OBJECTIVE: VITAL SIGNS: Blood pressure 80/50, pulse 117, and respiratory rate 15. HEENT: Temporal wasting. Orally intubated. LUNGS: Bilateral breath sounds with rhonchi. HEART: Irregularly irregular rhythm. Normal S1, S2. ABDOMEN: Soft. EXTREMITIES: A 1+ dependent edema. Mottling of the skin. Central line site is clean and dry. IMPRESSION: 1. Critical and grave. 2. Multiorgan system failure. 3. Metastatic parotid cell carcinoma. 4. Shock. PLAN: 1. Ventilator support. 2. Continue pressors. 3. Broad-spectrum antimicrobials. 4. Pain control. 5. Await family members arrival tomorrow to discuss the possibility of terminal care plan. Manuel Francisco M.D. DR: MARK JOB#: [id number] CC:
[2017-02-09] MEDS: Phenylephrine 50 MG in D5W 245 ML IV SCH ×6 (03:22→23:29)
[2017-02-09 05:10] LABS: MEAN CORPUSCULAR HEMOGLOBIN 34.2 PG (27.0-31.0); MEAN CORPUSCULAR HGB CONC 30.8 G/DL (32.0-36.0); MEAN CORPUSCULAR VOLUME 111 FL (80-99); MEAN PLATELET VOLUME 12.7 FL (6.5-10.1); PLATELET COUNT 17 K/UL (150-450); RED BLOOD COUNT 2.45 M/UL (4.20-5.40); RED CELL DISTRIBUTION WIDTH 25.3 % (11.6-14.8); WHITE BLOOD COUNT 16.2 K/UL (4.8-10.8)
[2017-02-09 05:22] LABS: ALANINE AMINOTRANSFERASE 53 U/L (12-78); ALBUMIN/GLOBULIN RATIO 0.2 (1.0-2.7); ANION GAP 14 mmol/L (5-15); ASPARTATE AMINO TRANSFERASE 600 U/L (15-37); CARBON DIOXIDE 16 MMOL/L (21-32); CHLORIDE 107 MMOL/L (98-107); CREATININE 1.5 MG/DL (0.55-1.30); MAGNESIUM 1.7 MG/DL (1.8-2.4); POTASSIUM 4.5 MMOL/L (3.5-5.1); SODIUM 137 MMOL/L (136-145); TOTAL PROTEIN 4.2 G/DL (6.4-8.2)
[2017-02-09 05:24] LABS: CALCIUM 5.7 MG/DL (8.5-10.1)
[2017-02-09 05:51] LABS: BILIRUBIN,DIRECT 0.7 MG/DL (0.0-0.3)
[2017-02-09] MEDS: D5NS 1,000 ML IV SCH ×2 (06:42→18:18)
[2017-02-09 07:34] LABS: BAND NEUTROPHILS % (MANUAL) 1 % (0-8); BASOPHILS % (MANUAL) 0 % (0-2); EOSINOPHILS % (MANUAL) 0 % (0-3); HYPOCHROMASIA 2+; LYMPHOCYTES % (MANUAL) 4 % (20-45); MACROCYTES 2+; NEUTROPHILS % (MANUAL) 93 % (45-75); NUCLEATED RED BLOOD CELLS 3 /100 WBC; PLATELET ESTIMATE DECREASED; TOTAL CELLS COUNTED 100
[2017-02-09 07:35] LABS: ANISOCYTOSIS 3+; PLATELET MORPHOLOGY NORMAL; POIKILOCYTOSIS 1+
[2017-02-09 07:38] LABS: OTHERS PATHOLOGIST COMMENT
--- NOTE | 2017-02-09 07:46 | Critical Care Progress Note ---
Assessment/Plan Assessment/Plan IMPRESSION: 1. Acute respiratory failure. 2. Hypotension on pressors 3. Hyponatremia. 4. Prerenal azotemia. 5. Metastatic bladder cancer with history of ureteral obstruction. 6. Severe protein-calorie malnutrition. 7. Leukocytosis with likelyhood of sepsis 8. Anemia. 9. History of upper extremity deep vein thrombosis on anticoagulation. 10. Thrombocytopenia. 11. significant pulmonary congestion 12. Acute renal failure PLAN: care noted prognosis poor with noted hemodynamics IV antibiotics noted respiratory care hyperventilate on the vent suction pressors recommend withdrawl of care oxygen therapy prognosis poor and recommend DNR very critical at present medications/laboratory data/nursing notes/ICU care reviewed in detail note reviewed and edited care discussed with RN and RT Critical Care - Subjective Interval Events: doing poorly tachycardic hypotensive on the ventilator obtunded Condition: critical EKG Rhythm: Sinus Tachycardia Critical Care - Objective ET-Tube: 7.5 ET Position: 22 Last 24 Hour Vital Signs Date Time Temp Pulse Resp B/P (MAP) Pulse Ox O2 Delivery O2 Flow Rate FiO2 02/09/17 07:10 148 25 50 02/09/17 06:44 110 106/84 02/09/17 06:36 106/84 02/09/17 06:30 120 24 64/45 98 Mechanical Ventilator 50 02/09/17 06:15 125 24 106/84 98 Mechanical Ventilator 50 02/09/17 06:00 127 24 68/41 100 Mechanical Ventilator 50 02/09/17 05:45 129 24 62/42 99 Mechanical Ventilator 50 02/09/17 05:30 128 24 57/43 99 Mechanical Ventilator 50 02/09/17 05:23 120 25 50 02/09/17 05:15 123 24 86/57 99 Mechanical Ventilator 50 02/09/17 05:00 120 24 88/65 99 Mechanical Ventilator 50 02/09/17 04:45 120 24 55/34 99 Mechanical Ventilator 50 02/09/17 04:31 118 02/09/17 04:31 50 02/09/17 04:30 119 24 70/57 99 Mechanical Ventilator 50 02/09/17 04:00 96.9 120 24 79/58 98 Mechanical Ventilator 50 02/09/17 03:30 122 24 62/49 98 Mechanical Ventilator 50 02/09/17 03:22 112 60/42 02/09/17 03:00 119 24 75/62 99 Mechanical Ventilator 50 02/09/17 02:53 120 24 50 02/09/17 02:30 118 24 67/40 99 Mechanical Ventilator 50 02/09/17 02:00 120 24 66/42 99 Mechanical Ventilator 50 02/09/17 01:31 71/53 02/09/17 01:30 120 24 71/49 100 Mechanical Ventilator 50 02/09/17 01:15 119 24 71/53 100 Mechanical Ventilator 50 02/09/17 01:01 120 24 50 02/09/17 01:00 120 24 57/44 100 Mechanical Ventilator 50 02/09/17 00:45 120 24 71/22 100 Mechanical Ventilator 50 02/09/17 00:30 120 24 70/48 100 Mechanical Ventilator 50 02/09/17 00:15 120 24 62/36 100 Mechanical Ventilator 50 02/09/17 00:00 120 02/09/17 00:00 96.8 120 24 68/32 100 Mechanical Ventilator 50 02/09/17 00:00 50 02/08/17 23:46 120 68/24 02/08/17 23:08 120 27 50 02/08/17 23:00 120 24 67/49 99 Mechanical Ventilator 50 02/08/17 22:30 120 24 75/46 99 Mechanical Ventilator 50 02/08/17 22:00 121 24 64/39 100 Mechanical Ventilator 50 02/08/17 21:45 121 24 85/69 100 Mechanical Ventilator 50 02/08/17 21:30 121 24 91/76 100 Mechanical Ventilator 50 02/08/17 21:15 121 24 81/50 100 Mechanical Ventilator 50 02/08/17 21:08 118 25 50 02/08/17 21:00 67/51 02/08/17 21:00 117 24 55/43 100 Mechanical Ventilator 50 02/08/17 20:45 116 24 67/51 100 Mechanical Ventilator 50 02/08/17 20:30 116 24 96/80 100 Mechanical Ventilator 50 02/08/17 20:15 117 24 63/42 100 Mechanical Ventilator 50 02/08/17 20:00 115 02/08/17 20:00 50 02/08/17 20:00 96.2 115 24 84/62 100 Mechanical Ventilator 50 02/08/17 19:45 120 24 72/32 100 Mechanical Ventilator 50 02/08/17 19:43 120 62/43 02/08/17 19:30 119 24 62/43 100 Mechanical Ventilator 50 02/08/17 19:15 118 24 64/47 100 Mechanical Ventilator 50 02/08/17 19:00 120 24 68/43 100 Mechanical Ventilator 50 02/08/17 18:59 119 24 50 02/08/17 18:00 117 24 66/45 100 Mechanical Ventilator 50 02/08/17 17:45 117 26 57/28 99 Mechanical Ventilator 50 02/08/17 17:30 120 25 68/37 99 Mechanical Ventilator 50 02/08/17 17:15 120 26 70/49 99 Mechanical Ventilator 50 02/08/17 17:00 120 26 69/44 99 Mechanical Ventilator 50 02/08/17 16:46 120 24 50 02/08/17 16:45 119 27 76/46 100 Mechanical Ventilator 50 02/08/17 16:30 119 27 71/39 99 Mechanical Ventilator 50 02/08/17 16:15 118 27 74/38 99 Mechanical Ventilator 50 02/08/17 16:00 98.5 118 28 71/43 99 Mechanical Ventilator 50 02/08/17 16:00 117 02/08/17 16:00 50 02/08/17 15:45 120 26 69/24 100 Mechanical Ventilator 50 02/08/17 15:44 119 66/47 02/08/17 15:30 119 24 66/47 99 Mechanical Ventilator 50 02/08/17 15:15 119 25 58/40 99 Mechanical Ventilator 50 02/08/17 15:15 119 24 50 02/08/17 15:00 118 23 65/46 97 Mechanical Ventilator 50 02/08/17 14:45 118 20 61/49 97 Mechanical Ventilator 50 02/08/17 14:30 119 22 68/43 97 Mechanical Ventilator 50 02/08/17 14:15 119 24 82/15 97 Mechanical Ventilator 50 02/08/17 14:00 120 24 32/15 96 Mechanical Ventilator 50 02/08/17 13:45 73/56 02/08/17 13:45 118 24 73/56 98 Mechanical Ventilator 50 02/08/17 13:30 112 24 59/41 98 Mechanical Ventilator 50 02/08/17 13:15 111 24 72/53 96 Mechanical Ventilator 50 02/08/17 13:12 114 24 50 02/08/17 13:00 116 24 72/53 97 Mechanical Ventilator 50 02/08/17 12:45 118 24 66/48 96 Mechanical Ventilator 50 02/08/17 12:30 118 24 75/45 99 Mechanical Ventilator 50 02/08/17 12:15 115 24 76/58 100 Mechanical Ventilator 50 02/08/17 12:00 98.6 115 24 80/48 99 Mechanical Ventilator 50 02/08/17 12:00 117 02/08/17 12:00 50 02/08/17 11:45 116 20 83/60 100 Mechanical Ventilator 50 02/08/17 11:30 115 20 83/61 100 Mechanical Ventilator 50 02/08/17 11:15 115 20 88/50 100 Mechanical Ventilator 50 02/08/17 11:07 115 83/43 02/08/17 11:00 114 20 83/43 100 Mechanical Ventilator 50 02/08/17 10:51 117 20 50 02/08/17 10:45 115 20 62/22 100 Mechanical Ventilator 50 02/08/17 10:30 116 20 83/50 100 Mechanical Ventilator 100 02/08/17 10:15 119 20 69/49 100 Mechanical Ventilator 100 02/08/17 10:01 66/32 02/08/17 10:00 124 20 68/46 100 Mechanical Ventilator 100 02/08/17 09:45 129 20 67/46 100 Mechanical Ventilator 100 02/08/17 09:30 100 02/08/17 09:30 131 20 100 02/08/17 09:30 135 20 101/67 100 Mechanical Ventilator 100 02/08/17 09:15 114 20 209/81 100 Bi-pap 40 02/08/17 09:00 119 15 81/65 100 Bi-pap 40 02/08/17 09:00 126 81/65 02/08/17 08:45 119 15 89/63 100 Bi-pap 40 02/08/17 08:30 116 13 66/32 100 Bi-pap 40 02/08/17 08:15 117 14 80/45 100 Bi-pap 40 02/08/17 08:00 98.7 112 13 74/55 100 Bi-pap 40 02/08/17 08:00 117 02/08/17 08:00 40 Labs: Labs Test 02/07/17 15:30 02/07/17 16:15 02/07/17 17:00 02/08/17 00:15 White Blood Count 29.1 K/UL (4.8-10.8) Red Blood Count 2.66 M/UL (4.20-5.40) Hemoglobin 8.7 G/DL (12.0-16.0) Hematocrit 28.7 % (37.0-47.0) Mean Corpuscular Volume 108 FL (80-99) Mean Corpuscular Hemoglobin 32.8 PG (27.0-31.0) Mean Corpuscular Hemoglobin Concent 30.4 G/DL (32.0-36.0) Red Cell Distribution Width 25.1 % (11.6-14.8) Platelet Count 39 K/UL (150-450) Mean Platelet Volume 10.0 FL (6.5-10.1) Neutrophils (%) (Auto) % (45.0-75.0) Lymphocytes (%) (Auto) % (20.0-45.0) Monocytes (%) (Auto) % (1.0-10.0) Eosinophils (%) (Auto) % (0.0-3.0) Basophils (%) (Auto) % (0.0-2.0) Differential Total Cells Counted 100 Neutrophils % (Manual) 90 % (45-75) Lymphocytes % (Manual) 5 % (20-45) Monocytes % (Manual) 2 % (1-10) Eosinophils % (Manual) 0 % (0-3) Basophils % (Manual) 0 % (0-2) Band Neutrophils 3 % (0-8) Platelet Estimate Decreased Platelet Morphology Normal Polychromasia 1+ Hypochromasia 2+ Anisocytosis 3+ Macrocytosis 1+ [place] Cells 1+ Sodium Level 143 MMOL/L (136-145) Potassium Level 4.5 MMOL/L (3.5-5.1) Chloride Level 111 MMOL/L (98-107) Carbon Dioxide Level 19 MMOL/L (21-32) Anion Gap 13 mmol/L (5-15) Blood Urea Nitrogen 28 mg/dL (7-18) Creatinine 0.9 MG/DL (0.55-1.30) Estimat Glomerular Filtration Rate mL/min (>60) Glucose Level 70 MG/DL (74-106) Calcium Level 6.6 MG/DL (8.5-10.1) Total Bilirubin 1.1 MG/DL (0.2-1.0) Direct Bilirubin 0.9 MG/DL (0.0-0.3) Aspartate Amino Transf (AST/SGOT) 106 U/L (15-37) Alanine Aminotransferase (ALT/SGPT) 25 U/L (12-78) Alkaline Phosphatase 375 U/L (46-116) Troponin I 0.015 ng/mL (0.000-0.056) Total Protein 5.2 G/DL (6.4-8.2) Albumin 1.0 G/DL (3.4-5.0) Globulin 4.2 g/dL Albumin/Globulin Ratio 0.2 (1.0-2.7) Arterial Blood pH 7.262 (7.350-7.450) 7.218 (7.350-7.450) Arterial Blood Partial Pressure CO2 43.8 mmHg (35.0-45.0) 41.9 mmHg (35.0-45.0) Arterial Blood Partial Pressure O2 78.1 mmHg (75.0-100.0) 337.9 mmHg (75.0-100.0) Arterial Blood HCO3 19.3 mmol/L (22.0-26.0) 16.7 mmol/L (22.0-26.0) Arterial Blood Oxygen Saturation 93.1 % (92.0-98.0) 99.3 % (92.0-98.0) Arterial Blood Base Excess -7.3 -10.4 Adan Test Positive Positive Urine Color Red Urine Appearance Cloudy Urine pH 6.5 (4.5-8.0) Urine Specific [place] 1.015 (1.005-1.035) Urine Protein 4+ (NEGATIVE) Urine Glucose (UA) Negative (NEGATIVE) Urine Ketones 2+ (NEGATIVE) Urine Occult Blood 5+ (NEGATIVE) Urine Nitrite Negative (NEGATIVE) Urine Bilirubin Negative (NEGATIVE) Urine Urobilinogen Normal MG/DL (0.0-1.0) Urine Leukocyte Esterase 3+ (NEGATIVE) Urine RBC Tntc /HPF (0 - 2) Urine WBC Tntc /HPF (0 - 2) Urine Squamous Epithelial Cells Few /LPF (NONE/OCC) Urine Bacteria Many /HPF (NONE) Test 02/08/17 04:20 02/08/17 08:05 02/08/17 10:30 02/08/17 13:15 White Blood Count 29.7 K/UL (4.8-10.8) Red Blood Count 2.83 M/UL (4.20-5.40) Hemoglobin 9.2 G/DL (12.0-16.0) Hematocrit 30.6 % (37.0-47.0) Mean Corpuscular Volume 108 FL (80-99) Mean Corpuscular Hemoglobin 32.6 PG (27.0-31.0) Mean Corpuscular Hemoglobin Concent 30.0 G/DL (32.0-36.0) Red Cell Distribution Width 26.0 % (11.6-14.8) Platelet Count 53 K/UL (150-450) Mean Platelet Volume 12.0 FL (6.5-10.1) Neutrophils (%) (Auto) % (45.0-75.0) Lymphocytes (%) (Auto) % (20.0-45.0) Monocytes (%) (Auto) % (1.0-10.0) Eosinophils (%) (Auto) % (0.0-3.0) Basophils (%) (Auto) % (0.0-2.0) Differential Total Cells Counted 100 Neutrophils % (Manual) 91 % (45-75) Lymphocytes % (Manual) 2 % (20-45) Monocytes % (Manual) 1 % (1-10) Eosinophils % (Manual) 0 % (0-3) Basophils % (Manual) 0 % (0-2) Band Neutrophils 6 % (0-8) Other Cell Type Pathologist comment Platelet Estimate Decreased Platelet Morphology Normal Polychromasia 1+ Hypochromasia 2+ Anisocytosis 3+ Macrocytosis 1+ [place] Cells Occasional Sodium Level 140 MMOL/L (136-145) Potassium Level 4.7 MMOL/L (3.5-5.1) Chloride Level 110 MMOL/L (98-107) Carbon Dioxide Level 18 MMOL/L (21-32) Anion Gap 12 mmol/L (5-15) Blood Urea Nitrogen 30 mg/dL (7-18) Creatinine 1.2 MG/DL (0.55-1.30) Estimat Glomerular Filtration Rate mL/min (>60) Glucose Level 169 MG/DL (74-106) Calcium Level 6.4 MG/DL (8.5-10.1) Total Bilirubin 0.9 MG/DL (0.2-1.0) Aspartate Amino Transf (AST/SGOT) 151 U/L (15-37) Alanine Aminotransferase (ALT/SGPT) 24 U/L (12-78) Alkaline Phosphatase 380 U/L (46-116) Total Protein 5.5 G/DL (6.4-8.2) Albumin 1.0 G/DL (3.4-5.0) Globulin 4.5 g/dL Albumin/Globulin Ratio 0.2 (1.0-2.7) Arterial Blood pH 7.197 (7.350-7.450) 7.150 (7.350-7.450) 7.232 (7.350-7.450) Arterial Blood Partial Pressure CO2 39.8 mmHg (35.0-45.0) 40.8 mmHg (35.0-45.0) 39.8 mmHg (35.0-45.0) Arterial Blood Partial Pressure O2 106.5 mmHg (75.0-100.0) 166.8 mmHg (75.0-100.0) 74.3 mmHg (75.0-100.0) Arterial Blood HCO3 15.1 mmol/L (22.0-26.0) 13.9 mmol/L (22.0-26.0) 16.4 mmol/L (22.0-26.0) Arterial Blood Oxygen Saturation 97.1 % (92.0-98.0) 98.5 % (92.0-98.0) 92.7 % (92.0-98.0) Arterial Blood Base Excess -12.2 -14.0 -10.4 Adan Test Positive Positive Positive Test 02/09/17 05:00 White Blood Count 16.2 K/UL (4.8-10.8) Red Blood Count 2.45 M/UL (4.20-5.40) Hemoglobin 8.4 G/DL (12.0-16.0) Hematocrit 27.2 % (37.0-47.0) Mean Corpuscular Volume 111 FL (80-99) Mean Corpuscular Hemoglobin 34.2 PG (27.0-31.0) Mean Corpuscular Hemoglobin Concent 30.8 G/DL (32.0-36.0) Red Cell Distribution Width 25.3 % (11.6-14.8) Platelet Count 17 K/UL (150-450) Mean Platelet Volume 12.7 FL (6.5-10.1) Neutrophils (%) (Auto) % (45.0-75.0) Lymphocytes (%) (Auto) % (20.0-45.0) Monocytes (%) (Auto) % (1.0-10.0) Eosinophils (%) (Auto) % (0.0-3.0) Basophils (%) (Auto) % (0.0-2.0) Differential Total Cells Counted 100 Neutrophils % (Manual) 93 % (45-75) Lymphocytes % (Manual) 4 % (20-45) Monocytes % (Manual) 2 % (1-10) Eosinophils % (Manual) 0 % (0-3) Basophils % (Manual) 0 % (0-2) Band Neutrophils 1 % (0-8) Nucleated Red Blood Cells 3 /100 WBC Platelet Estimate Decreased Platelet Morphology Normal Hypochromasia 2+ Poikilocytosis 1+ Anisocytosis 3+ Macrocytosis 2+ Sodium Level 137 MMOL/L (136-145) Potassium Level 4.5 MMOL/L (3.5-5.1) Chloride Level 107 MMOL/L (98-107) Carbon Dioxide Level 16 MMOL/L (21-32) Anion Gap 14 mmol/L (5-15) Blood Urea Nitrogen 33 mg/dL (7-18) Creatinine 1.5 MG/DL (0.55-1.30) Estimat Glomerular Filtration Rate mL/min (>60) Glucose Level 313 MG/DL (74-106) Calcium Level 5.7 MG/DL (8.5-10.1) Magnesium Level 1.7 MG/DL (1.8-2.4) Total Bilirubin 1.1 MG/DL (0.2-1.0) Direct Bilirubin 0.7 MG/DL (0.0-0.3) Aspartate Amino Transf (AST/SGOT) 600 U/L (15-37) Alanine Aminotransferase (ALT/SGPT) 53 U/L (12-78) Alkaline Phosphatase 281 U/L (46-116) Total Protein 4.2 G/DL (6.4-8.2) Albumin 0.7 G/DL (3.4-5.0) Globulin 3.5 g/dL Albumin/Globulin Ratio 0.2 (1.0-2.7) Objective: chronically ill poorly responsive ETT in place drips noted coarse breath sounds bilaterally with scattered rhonchi [id number] tachy without MRG NABS nontender no HSM mottled extremities some edema no response to pain Micro: Microbiology Date/Time Source Procedure Growth Status 02/07/17 15:45 Blood Blood Culture - Preliminary NO GROWTH AFTER 24 HOURS Resulted 02/07/17 15:30 Blood Blood Culture - Preliminary NO GROWTH AFTER 24 HOURS Resulted Accucheck: 141 GAGAN NICHOLE Feb 09, 2017 07:46
--- NOTE | 2017-02-09 08:08 | General Progress Note ---
Assessment/Plan Problem List: (1) Neutrophilic leukemoid reaction ICD Codes: D72.823 - Leukemoid reaction SNOMED: 47280577 (2) Weakness ICD Codes: R53.1 - Weakness SNOMED: 61956089 (3) FTT (failure to thrive) in adult ICD Codes: R62.7 - Adult failure to thrive SNOMED: 233656418 (4) Hypoglycemia ICD Codes: E16.2 - Hypoglycemia, unspecified SNOMED: 570263663 (5) Shock ICD Codes: R57.9 - Shock, unspecified SNOMED: 34120387 (6) Acute renal failure ICD Codes: N17.9 - Acute kidney failure, unspecified SNOMED: 36766484 Status: deteriorating Assessment/Plan cont supportive caer iv abx vent resp care ngt feeds grim prognosis d/w sister SHREE at length recommended dnr and comfort measures family want to continue full aggressive care Subjective ROS Limited/Unobtainable: Yes Constitutional: Reports: malaise, weakness HEENT: Reports: no symptoms Cardiovascular: Reports: no symptoms Respiratory: Reports: shortness of breath Gastrointestinal/Abdominal: Reports: no symptoms Genitourinary: Reports: no symptoms Neurologic/Psychiatric: Reports: no symptoms Endocrine: Reports: no symptoms Hematologic/Lymphatic: Reports: anemia Allergies: Coded Allergies: No Known Allergies (Unverified , 01/31/17) All Systems: reviewed and negative except above Subjective doing poorly intubated. s/p code blue on max pressors. dillicult to obtain BP no urine output. Objective Last 24 Hour Vital Signs Date Time Temp Pulse Resp B/P (MAP) Pulse Ox O2 Delivery O2 Flow Rate FiO2 02/09/17 08:00 50 02/09/17 08:00 47/27 02/09/17 07:10 148 25 50 02/09/17 06:44 110 106/84 02/09/17 06:36 106/84 02/09/17 06:30 120 24 64/45 98 Mechanical Ventilator 50 02/09/17 06:15 125 24 106/84 98 Mechanical Ventilator 50 02/09/17 06:00 127 24 68/41 100 Mechanical Ventilator 50 02/09/17 05:45 129 24 62/42 99 Mechanical Ventilator 50 02/09/17 05:30 128 24 57/43 99 Mechanical Ventilator 50 02/09/17 05:23 120 25 50 02/09/17 05:15 123 24 86/57 99 Mechanical Ventilator 50 02/09/17 05:00 120 24 88/65 99 Mechanical Ventilator 50 02/09/17 04:45 120 24 55/34 99 Mechanical Ventilator 50 02/09/17 04:31 118 02/09/17 04:31 50 02/09/17 04:30 119 24 70/57 99 Mechanical Ventilator 50 02/09/17 04:00 96.9 120 24 79/58 98 Mechanical Ventilator 50 02/09/17 03:30 122 24 62/49 98 Mechanical Ventilator 50 02/09/17 03:22 112 60/42 02/09/17 03:00 119 24 75/62 99 Mechanical Ventilator 50 02/09/17 02:53 120 24 50 02/09/17 02:30 118 24 67/40 99 Mechanical Ventilator 50 02/09/17 02:00 120 24 66/42 99 Mechanical Ventilator 50 02/09/17 01:31 71/53 02/09/17 01:30 120 24 71/49 100 Mechanical Ventilator 50 02/09/17 01:15 119 24 71/53 100 Mechanical Ventilator 50 02/09/17 01:01 120 24 50 02/09/17 01:00 120 24 57/44 100 Mechanical Ventilator 50 02/09/17 00:45 120 24 71/22 100 Mechanical Ventilator 50 02/09/17 00:30 120 24 70/48 100 Mechanical Ventilator 50 02/09/17 00:15 120 24 62/36 100 Mechanical Ventilator 50 02/09/17 00:00 120 02/09/17 00:00 96.8 120 24 68/32 100 Mechanical Ventilator 50 02/09/17 00:00 50 02/08/17 23:46 120 68/24 02/08/17 23:08 120 27 50 02/08/17 23:00 120 24 67/49 99 Mechanical Ventilator 50 02/08/17 22:30 120 24 75/46 99 Mechanical Ventilator 50 02/08/17 22:00 121 24 64/39 100 Mechanical Ventilator 50 02/08/17 21:45 121 24 85/69 100 Mechanical Ventilator 50 02/08/17 21:30 121 24 91/76 100 Mechanical Ventilator 50 02/08/17 21:15 121 24 81/50 100 Mechanical Ventilator 50 02/08/17 21:08 118 25 50 02/08/17 21:00 67/51 02/08/17 21:00 117 24 55/43 100 Mechanical Ventilator 50 02/08/17 20:45 116 24 67/51 100 Mechanical Ventilator 50 02/08/17 20:30 116 24 96/80 100 Mechanical Ventilator 50 02/08/17 20:15 117 24 63/42 100 Mechanical Ventilator 50 02/08/17 20:00 115 02/08/17 20:00 50 02/08/17 20:00 96.2 115 24 84/62 100 Mechanical Ventilator 50 02/08/17 19:45 120 24 72/32 100 Mechanical Ventilator 50 02/08/17 19:43 120 62/43 02/08/17 19:30 119 24 62/43 100 Mechanical Ventilator 50 02/08/17 19:15 118 24 64/47 100 Mechanical Ventilator 50 02/08/17 19:00 120 24 68/43 100 Mechanical Ventilator 50 02/08/17 18:59 119 24 50 02/08/17 18:00 117 24 66/45 100 Mechanical Ventilator 50 02/08/17 17:45 117 26 57/28 99 Mechanical Ventilator 50 02/08/17 17:30 120 25 68/37 99 Mechanical Ventilator 50 02/08/17 17:15 120 26 70/49 99 Mechanical Ventilator 50 02/08/17 17:00 120 26 69/44 99 Mechanical Ventilator 50 02/08/17 16:46 120 24 50 02/08/17 16:45 119 27 76/46 100 Mechanical Ventilator 50 02/08/17 16:30 119 27 71/39 99 Mechanical Ventilator 50 02/08/17 16:15 118 27 74/38 99 Mechanical Ventilator 50 02/08/17 16:00 98.5 118 28 71/43 99 Mechanical Ventilator 50 02/08/17 16:00 117 02/08/17 16:00 50 02/08/17 15:45 120 26 69/24 100 Mechanical Ventilator 50 02/08/17 15:44 119 66/47 02/08/17 15:30 119 24 66/47 99 Mechanical Ventilator 50 02/08/17 15:15 119 25 58/40 99 Mechanical Ventilator 50 02/08/17 15:15 119 24 50 02/08/17 15:00 118 23 65/46 97 Mechanical Ventilator 50 02/08/17 14:45 118 20 61/49 97 Mechanical Ventilator 50 02/08/17 14:30 119 22 68/43 97 Mechanical Ventilator 50 02/08/17 14:15 119 24 82/15 97 Mechanical Ventilator 50 02/08/17 14:00 120 24 32/15 96 Mechanical Ventilator 50 02/08/17 13:45 73/56 02/08/17 13:45 118 24 73/56 98 Mechanical Ventilator 50 02/08/17 13:30 112 24 59/41 98 Mechanical Ventilator 50 02/08/17 13:15 111 24 72/53 96 Mechanical Ventilator 50 02/08/17 13:12 114 24 50 02/08/17 13:00 116 24 72/53 97 Mechanical Ventilator 50 02/08/17 12:45 118 24 66/48 96 Mechanical Ventilator 50 02/08/17 12:30 118 24 75/45 99 Mechanical Ventilator 50 02/08/17 12:15 115 24 76/58 100 Mechanical Ventilator 50 02/08/17 12:00 98.6 115 24 80/48 99 Mechanical Ventilator 50 02/08/17 12:00 117 02/08/17 12:00 50 02/08/17 11:45 116 20 83/60 100 Mechanical Ventilator 50 02/08/17 11:30 115 20 83/61 100 Mechanical Ventilator 50 02/08/17 11:15 115 20 88/50 100 Mechanical Ventilator 50 02/08/17 11:07 115 83/43 02/08/17 11:00 114 20 83/43 100 Mechanical Ventilator 50 02/08/17 10:51 117 20 50 02/08/17 10:45 115 20 62/22 100 Mechanical Ventilator 50 02/08/17 10:30 116 20 83/50 100 Mechanical Ventilator 100 02/08/17 10:15 119 20 69/49 100 Mechanical Ventilator 100 02/08/17 10:01 66/32 02/08/17 10:00 124 20 68/46 100 Mechanical Ventilator 100 02/08/17 09:45 129 20 67/46 100 Mechanical Ventilator 100 02/08/17 09:30 100 02/08/17 09:30 131 20 100 02/08/17 09:30 135 20 101/67 100 Mechanical Ventilator 100 02/08/17 09:15 114 20 209/81 100 Bi-pap 40 02/08/17 09:00 119 15 81/65 100 Bi-pap 40 02/08/17 09:00 126 81/65 02/08/17 08:45 119 15 89/63 100 Bi-pap 40 02/08/17 08:30 116 13 66/32 100 Bi-pap 40 02/08/17 08:15 117 14 80/45 100 Bi-pap 40 Intake and Output 02/09/17 02/10/17 19:00 07:00 Intake Total 272.55 ml Balance 272.55 ml IV Total 272.55 ml Laboratory Tests 02/08/17 10:30: Arterial Blood pH 7.150*L, Arterial Blood Partial Pressure CO2 40.8, Arterial Blood Partial Pressure O2 166.8H, Arterial Blood HCO3 13.9L, Arterial Blood Oxygen Saturation 98.5H, Arterial Blood Base Excess -14.0, Adan Test Positive 02/08/17 13:15: Arterial Blood pH 7.232*L, Arterial Blood Partial Pressure CO2 39.8, Arterial Blood Partial Pressure O2 74.3L, Arterial Blood HCO3 16.4L, Arterial Blood Oxygen Saturation 92.7, Arterial Blood Base Excess -10.4, Adan Test Positive 02/09/17 05:00: White Blood Count 16.2H, Red Blood Count 2.45L, Hemoglobin 8.4L, Hematocrit 27.2L, Mean Corpuscular Volume 111H, Mean Corpuscular Hemoglobin 34.2H, Mean Corpuscular Hemoglobin Concent 30.8L, Red Cell Distribution Width 25.3H, Platelet Count 17#L, Mean Platelet Volume 12.7H, Neutrophils (%) (Auto) , Lymphocytes (%) (Auto) , Monocytes (%) (Auto) , Eosinophils (%) (Auto) , Basophils (%) (Auto) , Differential Total Cells Counted 100, Neutrophils % ( Manual) 93H, Lymphocytes % (Manual) 4L, Monocytes % (Manual) 2, Eosinophils % ( Manual) 0, Basophils % (Manual) 0, Band Neutrophils 1, Nucleated Red Blood Cells 3, Platelet Estimate DecreasedL, Platelet Morphology Normal, Hypochromasia 2+, Poikilocytosis 1+, Anisocytosis 3+, Macrocytosis 2+, Sodium Level 137, Potassium Level 4.5, Chloride Level 107, Carbon Dioxide Level 16L, Anion Gap 14, Blood Urea Nitrogen 33H, Creatinine 1.5H, Estimat Glomerular Filtration Rate , Glucose Level 313#H, Calcium Level 5.7*L, Magnesium Level 1.7L , Total Bilirubin 1.1H, Direct Bilirubin 0.7H, Aspartate Amino Transf (AST/SGOT ) 600H, Alanine Aminotransferase (ALT/SGPT) 53, Alkaline Phosphatase 281H, Total Protein 4.2L, Albumin 0.7L, Globulin 3.5, Albumin/Globulin Ratio 0.2L Height (Feet): 5 Height (Inches): 1.00 Weight (Pounds): 153 General Appearance: lethargic, cachetic, thin Neck: supple Cardiovascular: tachycardia Respiratory/Chest: rhonchi - bilaterally Abdomen: normal bowel sounds, non tender, soft, no organomegaly Edema: mild edema Neurologic: unresponsive HONG REYES Feb 09, 2017 08:08
[2017-02-09] MEDS: Pantoprazole Inj IVP SCH (08:38)
[2017-02-09] MEDS: Docusate 250mg cap ORAL SCH (08:39)
[2017-02-09] MEDS: Eliquis 2.5mg tablet ORAL SCH ×2 (08:44→17:46)
[2017-02-09 08:47] LABS: ABG ALLEN TEST POSITIVE; ABG BASE EXCESS -16.9; ABG PCO2 40.7 mmHg (35.0-45.0)
--- NOTE | 2017-02-09 10:48 | Infectious Diseases Prog Note ---
Assessment/Plan Assessment/Plan A 1. Citrobacter UTI 2. pneumonia 3. metastatic bladder cancer 4. leucocytosis 5. thrombocytopenia 6. rectal VRE colonization 7. Shock 8. Acute respiratory failure P 1. continue Zosyn & Vancomycin 2. poor prognosis Subjective ROS Limited/Unobtainable: Yes Cardiovascular: Reports: other - on maximal dose of pressors Allergies: Coded Allergies: No Known Allergies (Unverified , 01/31/17) Objective Vital Signs Last 24 Hour Vital Signs Date Time Temp Pulse Resp B/P (MAP) Pulse Ox O2 Delivery O2 Flow Rate FiO2 02/09/17 10:34 125 106/73 02/09/17 10:00 59/50 02/09/17 09:45 181 24 59/50 97 Mechanical Ventilator 50 02/09/17 09:30 137 24 33/20 98 Mechanical Ventilator 50 02/09/17 09:15 121 24 33/20 100 Mechanical Ventilator 50 02/09/17 09:00 128 24 51/30 98 Mechanical Ventilator 50 02/09/17 09:00 51/30 02/09/17 08:54 113 25 50 02/09/17 08:45 139 24 56/37 99 Mechanical Ventilator 50 02/09/17 08:30 153 24 59/43 99 Mechanical Ventilator 50 02/09/17 08:15 153 24 53/30 91 Mechanical Ventilator 50 02/09/17 08:00 50 02/09/17 08:00 135 25 50/42 99 Mechanical Ventilator 50 02/09/17 08:00 47/27 02/09/17 08:00 168 02/09/17 07:45 130 25 47/27 98 Mechanical Ventilator 50 02/09/17 07:30 149 25 32/11 99 Mechanical Ventilator 50 02/09/17 07:15 159 24 54/39 87 Mechanical Ventilator 50 02/09/17 07:10 148 25 50 02/09/17 07:00 153 24 73/39 97 Mechanical Ventilator 50 02/09/17 06:44 110 106/84 02/09/17 06:36 106/84 02/09/17 06:30 120 24 64/45 98 Mechanical Ventilator 50 02/09/17 06:15 125 24 106/84 98 Mechanical Ventilator 50 02/09/17 06:00 127 24 68/41 100 Mechanical Ventilator 50 02/09/17 05:45 129 24 62/42 99 Mechanical Ventilator 50 02/09/17 05:30 128 24 57/43 99 Mechanical Ventilator 50 02/09/17 05:23 120 25 50 02/09/17 05:15 123 24 86/57 99 Mechanical Ventilator 50 02/09/17 05:00 120 24 88/65 99 Mechanical Ventilator 50 02/09/17 04:45 120 24 55/34 99 Mechanical Ventilator 50 02/09/17 04:31 118 02/09/17 04:31 50 02/09/17 04:30 119 24 70/57 99 Mechanical Ventilator 50 02/09/17 04:00 96.9 120 24 79/58 98 Mechanical Ventilator 50 02/09/17 03:30 122 24 62/49 98 Mechanical Ventilator 50 02/09/17 03:22 112 60/42 02/09/17 03:00 119 24 75/62 99 Mechanical Ventilator 50 02/09/17 02:53 120 24 50 02/09/17 02:30 118 24 67/40 99 Mechanical Ventilator 50 02/09/17 02:00 120 24 66/42 99 Mechanical Ventilator 50 02/09/17 01:31 71/53 02/09/17 01:30 120 24 71/49 100 Mechanical Ventilator 50 02/09/17 01:15 119 24 71/53 100 Mechanical Ventilator 50 02/09/17 01:01 120 24 50 02/09/17 01:00 120 24 57/44 100 Mechanical Ventilator 50 02/09/17 00:45 120 24 71/22 100 Mechanical Ventilator 50 02/09/17 00:30 120 24 70/48 100 Mechanical Ventilator 50 02/09/17 00:15 120 24 62/36 100 Mechanical Ventilator 50 02/09/17 00:00 120 02/09/17 00:00 96.8 120 24 68/32 100 Mechanical Ventilator 50 02/09/17 00:00 50 02/08/17 23:46 120 68/24 02/08/17 23:08 120 27 50 02/08/17 23:00 120 24 67/49 99 Mechanical Ventilator 50 02/08/17 22:30 120 24 75/46 99 Mechanical Ventilator 50 02/08/17 22:00 121 24 64/39 100 Mechanical Ventilator 50 02/08/17 21:45 121 24 85/69 100 Mechanical Ventilator 50 02/08/17 21:30 121 24 91/76 100 Mechanical Ventilator 50 02/08/17 21:15 121 24 81/50 100 Mechanical Ventilator 50 02/08/17 21:08 118 25 50 02/08/17 21:00 67/51 02/08/17 21:00 117 24 55/43 100 Mechanical Ventilator 50 02/08/17 20:45 116 24 67/51 100 Mechanical Ventilator 50 02/08/17 20:30 116 24 96/80 100 Mechanical Ventilator 50 02/08/17 20:15 117 24 63/42 100 Mechanical Ventilator 50 02/08/17 20:00 115 02/08/17 20:00 50 02/08/17 20:00 96.2 115 24 84/62 100 Mechanical Ventilator 50 02/08/17 19:45 120 24 72/32 100 Mechanical Ventilator 50 02/08/17 19:43 120 62/43 02/08/17 19:30 119 24 62/43 100 Mechanical Ventilator 50 02/08/17 19:15 118 24 64/47 100 Mechanical Ventilator 50 02/08/17 19:00 120 24 68/43 100 Mechanical Ventilator 50 02/08/17 18:59 119 24 50 02/08/17 18:00 117 24 66/45 100 Mechanical Ventilator 50 02/08/17 17:45 117 26 57/28 99 Mechanical Ventilator 50 02/08/17 17:30 120 25 68/37 99 Mechanical Ventilator 50 02/08/17 17:15 120 26 70/49 99 Mechanical Ventilator 50 02/08/17 17:00 120 26 69/44 99 Mechanical Ventilator 50 02/08/17 16:46 120 24 50 02/08/17 16:45 119 27 76/46 100 Mechanical Ventilator 50 02/08/17 16:30 119 27 71/39 99 Mechanical Ventilator 50 02/08/17 16:15 118 27 74/38 99 Mechanical Ventilator 50 02/08/17 16:00 98.5 118 28 71/43 99 Mechanical Ventilator 50 02/08/17 16:00 117 02/08/17 16:00 50 02/08/17 15:45 120 26 69/24 100 Mechanical Ventilator 50 02/08/17 15:44 119 66/47 02/08/17 15:30 119 24 66/47 99 Mechanical Ventilator 50 02/08/17 15:15 119 25 58/40 99 Mechanical Ventilator 50 02/08/17 15:15 119 24 50 02/08/17 15:00 118 23 65/46 97 Mechanical Ventilator 50 02/08/17 14:45 118 20 61/49 97 Mechanical Ventilator 50 02/08/17 14:30 119 22 68/43 97 Mechanical Ventilator 50 02/08/17 14:15 119 24 82/15 97 Mechanical Ventilator 50 02/08/17 14:00 120 24 32/15 96 Mechanical Ventilator 50 02/08/17 13:45 73/56 02/08/17 13:45 118 24 73/56 98 Mechanical Ventilator 50 02/08/17 13:30 112 24 59/41 98 Mechanical Ventilator 50 02/08/17 13:15 111 24 72/53 96 Mechanical Ventilator 50 02/08/17 13:12 114 24 50 02/08/17 13:00 116 24 72/53 97 Mechanical Ventilator 50 02/08/17 12:45 118 24 66/48 96 Mechanical Ventilator 50 02/08/17 12:30 118 24 75/45 99 Mechanical Ventilator 50 02/08/17 12:15 115 24 76/58 100 Mechanical Ventilator 50 02/08/17 12:00 98.6 115 24 80/48 99 Mechanical Ventilator 50 02/08/17 12:00 117 02/08/17 12:00 50 02/08/17 11:45 116 20 83/60 100 Mechanical Ventilator 50 02/08/17 11:30 115 20 83/61 100 Mechanical Ventilator 50 02/08/17 11:15 115 20 88/50 100 Mechanical Ventilator 50 02/08/17 11:07 115 83/43 02/08/17 11:00 114 20 83/43 100 Mechanical Ventilator 50 02/08/17 10:51 117 20 50 02/08/17 10:45 115 20 62/22 100 Mechanical Ventilator 50 Height (Feet): 5 Height (Inches): 1.00 Weight (Pounds): 153 HEENT: other - orally intubated Respiratory/Chest: lungs clear, other - on ventilator Cardiovascular: tachycardia, other - RIJ central line Abdomen: soft, non tender, other - orogastric tube Extremities: other - generalized edema, cold exterimities Skin: no rash Microbiology Date/Time Source Procedure Growth Status 02/07/17 15:45 Blood Blood Culture - Preliminary NO GROWTH AFTER 24 HOURS Resulted 02/07/17 15:30 Blood Blood Culture - Preliminary NO GROWTH AFTER 24 HOURS Resulted 02/07/17 17:00 Straight Cath Urine Culture - Preliminary Resulted Laboratory Tests Test 02/08/17 13:15 02/09/17 05:00 02/09/17 08:40 Arterial Blood pH 7.232 (7.350-7.450) 7.083 (7.350-7.450) Arterial Blood Partial Pressure CO2 39.8 mmHg (35.0-45.0) 40.7 mmHg (35.0-45.0) Arterial Blood Partial Pressure O2 74.3 mmHg (75.0-100.0) L 83.7 mmHg (75.0-100.0) Arterial Blood HCO3 16.4 mmol/L (22.0-26.0) L 11.9 mmol/L (22.0-26.0) L Arterial Blood Oxygen Saturation 92.7 % (92.0-98.0) 92.7 % (92.0-98.0) Arterial Blood Base Excess -10.4 -16.9 Adan Test Positive Positive White Blood Count 16.2 K/UL (4.8-10.8) H Red Blood Count 2.45 M/UL (4.20-5.40) L Hemoglobin 8.4 G/DL (12.0-16.0) L Hematocrit 27.2 % (37.0-47.0) L Mean Corpuscular Volume 111 FL (80-99) H Mean Corpuscular Hemoglobin 34.2 PG (27.0-31.0) H Mean Corpuscular Hemoglobin Concent 30.8 G/DL (32.0-36.0) L Red Cell Distribution Width 25.3 % (11.6-14.8) H Platelet Count 17 K/UL (150-450) #L Mean Platelet Volume 12.7 FL (6.5-10.1) H Neutrophils (%) (Auto) % (45.0-75.0) Lymphocytes (%) (Auto) % (20.0-45.0) Monocytes (%) (Auto) % (1.0-10.0) Eosinophils (%) (Auto) % (0.0-3.0) Basophils (%) (Auto) % (0.0-2.0) Differential Total Cells Counted 100 Neutrophils % (Manual) 93 % (45-75) H Lymphocytes % (Manual) 4 % (20-45) L Monocytes % (Manual) 2 % (1-10) Eosinophils % (Manual) 0 % (0-3) Basophils % (Manual) 0 % (0-2) Band Neutrophils 1 % (0-8) Nucleated Red Blood Cells 3 /100 WBC Platelet Estimate Decreased L Platelet Morphology Normal Hypochromasia 2+ Poikilocytosis 1+ Anisocytosis 3+ Macrocytosis 2+ Sodium Level 137 MMOL/L (136-145) Potassium Level 4.5 MMOL/L (3.5-5.1) Chloride Level 107 MMOL/L (98-107) Carbon Dioxide Level 16 MMOL/L (21-32) L Anion Gap 14 mmol/L (5-15) Blood Urea Nitrogen 33 mg/dL (7-18) H Creatinine 1.5 MG/DL (0.55-1.30) H Estimat Glomerular Filtration Rate mL/min (>60) Glucose Level 313 MG/DL (74-106) #H Calcium Level 5.7 MG/DL (8.5-10.1) *L Magnesium Level 1.7 MG/DL (1.8-2.4) L Total Bilirubin 1.1 MG/DL (0.2-1.0) H Direct Bilirubin 0.7 MG/DL (0.0-0.3) H Aspartate Amino Transf (AST/SGOT) 600 U/L (15-37) H Alanine Aminotransferase (ALT/SGPT) 53 U/L (12-78) Alkaline Phosphatase 281 U/L (46-116) H Total Protein 4.2 G/DL (6.4-8.2) L Albumin 0.7 G/DL (3.4-5.0) L Globulin 3.5 g/dL Albumin/Globulin Ratio 0.2 (1.0-2.7) L Current Medications Medications (Trade) Dose Ordered Sig/Juaquin Route PRN Reason Start Time Stop Time Status Last Admin Dose Admin Acetaminophen (Tylenol) 650 mg Q4H PRN ORAL Mild Pain/Temp > 100.5 02/07/17 16:30 03/03/17 16:29 Albuterol/ Ipratropium (Albuterol/ Ipratropium) 3 ml Q4H PRN HHN For Cough 02/07/17 16:30 02/12/17 16:29 Apixaban (Eliquis) 2.5 mg BID ORAL 02/07/17 18:00 12/8/17 08:59 Chlorhexidine Gluconate (Gracie-Hex 2%) 1 applic DAILY@2000 TOPIC 02/07/17 20:00 03/08/17 19:59 02/08/17 20:00 Dextrose/Sodium Chloride 1,000 ml @ 75 mls/hr [id number] IV 02/07/17 17:00 03/03/17 16:59 02/09/17 06:42 Docusate Sodium (Colace) 250 mg TWICE A DAY NG 02/09/17 18:00 03/11/17 17:59 Gabapentin (Neurontin) 600 mg TID@0900,1500,2100 ORAL 02/07/17 21:00 03/03/17 08:59 02/09/17 08:39 Mirtazapine (Remeron) 15 mg BEDTIME ORAL 02/07/17 21:00 03/07/17 20:59 02/07/17 21:06 Norepinephrine Bitartrate 8 mg/ Dextrose 558 ml @ 0 mls/hr Q24H IV 02/08/17 08:15 03/10/17 08:14 02/09/17 06:36 Pantoprazole (Protonix) 40 mg DAILY IVP 02/08/17 09:00 03/10/17 08:59 02/09/17 08:38 Phenylephrine HCl 50 mg/Dextrose 250 ml @ 0 mls/hr Q24H IV 02/08/17 09:00 03/10/17 08:59 02/09/17 10:34 Piperacillin Sod/ Tazobactam Sod 3.375 gm/Dextrose 55 ml @ 13.75 mls/ hr Q8HR@0200,1000,1800 IVPB 02/08/17 18:00 02/15/17 17:59 02/09/17 09:56 Vancomycin HCl (Vanco rx to dose) 1 ea DAILYPRN PRN MISC Per rx protocol 02/07/17 17:00 03/09/17 16:59 Vancomycin/Sodium Chloride 250 ml @ 166.667 mls/hr Q24H IVPB 02/07/17 17:00 02/12/17 16:59 02/08/17 17:26 MEGHA OGDEN Feb 09, 2017 10:48
--- NOTE | 2017-02-09 11:40 | Wound Care Consultation ---
Wound Assessment Wound Assessment #1: Wound Number: 1 Wound Present on Admission: Yes New Wound: No Status Change of Wound: No Wound Location Body Site Modif: mid Wound Location Body Site: sacral Wound Type: pressure ulcer Nohemy Test: Does not Nohemy Pressure Ulcer Stage: Unstageable Wound Thickness: Full Thickness Wound Length: 3.5 Wound Width: 4.5 Wound Depth: utd Percent of Wound Bed Yellow/Wh: 50 - noted increase in slough Percent of Wound Black/Brown: 40 - borwn color necrotic tissue appearing Percent of Wound Purple/Maroon: 10 - periwound noted maroon color appearing Wound Drainage Description: Serosanguineous Wound Drainage Amount: Scant Wound Drainage Odor: None/Absent Tissue Surrounding Wound: Erythemic Wound General Appearance: Reddened, Draining, Necrotic Wound Assessment #2: Wound Number: 2 Wound Present on Admission: Yes New Wound: No Status Change of Wound: No Wound Location Body Site Modif: left, upper, posterior Wound Location Body Site: thigh Nohemy Test: Does not Nohemy Pressure Ulcer Stage: II - open blister Wound Thickness: Partial Thickness Wound Length: 0.2 Wound Width: 0.8 Wound Depth: less than 0.1 Percent of Wound Simms/Red: 100 - resolving Wound Drainage Description: Serosanguineous Wound Drainage Amount: Scant Wound Drainage Odor: None/Absent Tissue Surrounding Wound: Macerated Wound General Appearance: Reddened Wound Assessment #3: Wound Number: 3 Wound Present on Admission: Yes New Wound: No Status Change of Wound: No Wound Location Body Site Modif: right, anterior Wound Location Body Site: knee Wound Type: scab Nohemy Test: Does not Nohemy Wound Thickness: Full Thickness Wound Length: 1.5 Wound Width: 1.0 Wound Depth: utd Percent of Wound Black/Brown: 100 - dry scab. Wound Drainage Amount: None Wound Drainage Odor: None/Absent Tissue Surrounding Wound: Intact Wound General Appearance: Clean/Dry Wound Assessment #4: Wound Number: 4 Wound Present on Admission: No New Wound: No Status Change of Wound: No Wound Location Body Site: perineal area Wound Type: chemical burn Nohemy Test: Does not Nohemy Percent of Wound Simms/Red: 100 Wound Drainage Amount: None Wound Drainage Odor: None/Absent Tissue Surrounding Wound: Erythemic Wound General Appearance: Reddened, Necrotic, Clean/Dry Wound Comment reassessment #1 Sacral unstageable pressure ulcer- upon assessment noted site remains unstageable noted increase in necrotic tissue , also noted surrounding periwound appearing maroon in color, despite all preventative measures noted wound bed increase in necrotic tissue, patient current condition places at risk for further skin breakdown. #2 Left posterior thigh open blister- noted good progress decrease in size, resolving #3 Dry scab on anterior knee - remains intact dry. #4 perineal chemical burn Recommendation -Sacral unstageable pressure ulcer Cleanse with saline, pat dry, apply skin barrier film to nahed wound area, apply Therahoney gel to wound bed, cover with Biatain silicone drg daily and PRN soiled/dislodged -Left posterior thigh open blister Local wound care per protocol -Perineal chemical burn - cleanse gently with soap and water pat dry , apply skin barrier cream BID and prn if soiled/dislodged. -Keep clean and dry -Turn and reposition -Low air loss P200 mattress -Offload both heels -Heel protector on both heels -Optimize nutrition -Assess and f/u accordingly for any changes NORMA MCARTHUR Feb 09, 2017 11:40
[2017-02-09] MEDS: Docusate 100mg/10ml Liq NG SCH (17:46)
[2017-02-09] MEDS: Vancomycin 750mg/NS 250ml 250 ML IVPB SCH (17:55)
[2017-02-09] MEDS ORDERED: Vancomycin 1gm/D5W 275ml IVPB SCH ×2 (18:00)
[2017-02-09] MEDS ORDERED: D5W 275ml ONE (19:25)
[2017-02-09] MEDS ORDERED: Tubing IV Secondary IV ONE ×2 (19:25→19:35)
[2017-02-09] MEDS ORDERED: D5NS 1000ml IV ONE ×3 (19:25→19:35)
[2017-02-09] MEDS ORDERED: NS 275ml ONE (19:35)
[2017-02-09] MEDS ORDERED: Piperacillin/Tazobactam 3.375 GM in D5W 55 ML IVPB SCH (20:00)
[2017-02-09] MEDS: Dyna-Hex 2% Top Sol 2oz TOPIC SCH (20:06)
--- NOTE | 2017-02-09 21:45 | Progress Note ---
DATE: 02/09/2017 CARDIOLOGY PROGRESS NOTE SUBJECTIVE: The patient was seen and evaluated in the intensive care unit. Her condition is critical. Prognosis is grave. The case was discussed in detail at bedside with the patient's sister and niece, who arrived today from [place]. OBJECTIVE: GENERAL: The patient is orally intubated, mechanically ventilated. She is on 2 pressors. She has marginal blood pressure. HEENT: Temporal wasting. Orally intubated. LUNGS: Bilateral breath sounds. HEART: Regular rhythm and rate. Normal S1, S2. ABDOMEN: Distended, but soft. EXTREMITIES: 2+ dependent edema. IMPRESSION: 1. Metastatic carcinoma. 2. Multiorgan system failure. 3. Respiratory failure, status post full arrest. 4. Grave prognosis. I have informed the family members that she is not a candidate for the experimental chemotherapy that they were offered three to four weeks ago by the oncologist and that DNR would be appropriate, however, they are not ready to proceed with that recommendation. As such, we will continue current level of support. Manuel Francisco M.D. DR: Everton JOB#: [id number] CC:
[2017-02-10] VITALS (26 sets, daily range): BP systolic 30–124; BP diastolic 12–50
[2017-02-10] MEDS: Norepinephrine Bitartrate 8 MG in D5W 500ml 550 ML IV SCH ×3 (02:02→11:33)
[2017-02-10] MEDS: Piperacillin/Tazobactam 3.375 GM in D5W 55 ML IVPB SCH ×2 (02:02→09:59)
[2017-02-10] MEDS: Phenylephrine 50 MG in D5W 245 ML IV SCH ×3 (03:11→10:43)
[2017-02-10] MEDS: Pantoprazole Inj IVP SCH (08:49)
[2017-02-10] MEDS: Docusate 100mg/10ml Liq NG SCH (08:49)
[2017-02-10] MEDS: Eliquis 2.5mg tablet ORAL SCH (08:49)
--- NOTE | 2017-02-10 09:02 | Critical Care Progress Note ---
Assessment/Plan Assessment/Plan IMPRESSION: 1. Acute respiratory failure. 2. Hypotension on pressors 3. Hyponatremia. 4. Prerenal azotemia. 5. Metastatic bladder cancer with history of ureteral obstruction. 6. Severe protein-calorie malnutrition. 7. Leukocytosis with likelyhood of sepsis 8. Anemia. 9. History of upper extremity deep vein thrombosis on anticoagulation. 10. Thrombocytopenia. 11. significant pulmonary congestion 12. Acute renal failure PLAN: care noted prognosis poor with noted hemodynamics has been hypotensive throughout the night IV antibiotics noted respiratory care without change hyperventilate on the vent- unable to adjust further suction pressors- max dose at present recommend withdrawl of care oxygen therapy prognosis poor and recommend DNR and terminal care very critical at present medications/laboratory data/nursing notes/ICU care reviewed in detail note reviewed and edited care discussed with RN and RT ICU care time 40 minutes Critical Care - Subjective Interval Events: doing poorly hypotensive and hypoxemic unresponsive still full code Condition: critical EKG Rhythm: Sinus Tachycardia Critical Care - Objective ET-Tube: 7.5 ET Position: 22 Last 24 Hour Vital Signs Date Time Temp Pulse Resp B/P (MAP) Pulse Ox O2 Delivery O2 Flow Rate FiO2 02/10/17 07:03 82 25 100 02/10/17 07:00 80 25 53/37 53 Mechanical Ventilator 100 02/10/17 06:41 82 53/37 02/10/17 06:41 53/37 02/10/17 06:30 82 27 53/37 53 Mechanical Ventilator 100 02/10/17 06:00 53/37 02/10/17 06:00 83 24 53/37 53 Mechanical Ventilator 100 02/10/17 05:30 86 26 41/16 86 Mechanical Ventilator 100 02/10/17 05:11 87 26 100 02/10/17 05:00 87 26 74/24 86 Mechanical Ventilator 100 02/10/17 05:00 113/13 02/10/17 04:30 88 26 113/13 86 Mechanical Ventilator 100 02/10/17 04:00 100 02/10/17 04:00 97.3 89 26 56/39 81 Mechanical Ventilator 100 02/10/17 04:00 56/39 02/10/17 04:00 90 02/10/17 03:30 89 23 64/42 88 Mechanical Ventilator 100 02/10/17 03:11 90 02/10/17 03:00 42/20 02/10/17 03:00 90 26 42/20 81 Mechanical Ventilator 100 02/10/17 02:44 90 25 100 02/10/17 02:30 91 26 124/39 81 Mechanical Ventilator 100 02/10/17 02:02 84/36 02/10/17 02:00 91 26 55/37 81 Mechanical Ventilator 100 02/10/17 02:00 55/37 02/10/17 01:30 90 26 84/36 84 Mechanical Ventilator 100 02/10/17 01:00 92 24 92/50 79 Mechanical Ventilator 100 02/10/17 01:00 92/50 02/10/17 00:50 89 27 100 02/10/17 00:30 87 25 42/25 88 Mechanical Ventilator 100 02/10/17 00:00 96.7 143 25 42/25 87 Mechanical Ventilator 100 02/10/17 00:00 42/25 02/10/17 00:00 100 02/09/17 23:30 144 26 41/17 87 Mechanical Ventilator 100 02/09/17 23:29 115 42/30 02/09/17 23:04 115 27 100 02/09/17 23:00 135 25 42/30 89 Mechanical Ventilator 100 02/09/17 23:00 42/30 02/09/17 22:30 134 27 42/19 92 Mechanical Ventilator 50 02/09/17 22:00 138 27 93/51 100 Mechanical Ventilator 50 02/09/17 22:00 93/51 02/09/17 21:30 135 27 51/38 100 Mechanical Ventilator 50 02/09/17 21:16 84/53 02/09/17 21:02 139 25 50 02/09/17 21:00 94 27 84/53 98 Mechanical Ventilator 50 02/09/17 21:00 84/53 02/09/17 20:30 132 23 46/37 98 Mechanical Ventilator 50 02/09/17 20:28 98 66/42 02/09/17 20:00 66/42 02/09/17 20:00 96.7 97 24 66/42 98 Mechanical Ventilator 50 02/09/17 20:00 98 02/09/17 20:00 50 02/09/17 19:30 98 23 55/46 98 Mechanical Ventilator 50 02/09/17 19:00 99 23 53/27 98 Mechanical Ventilator 50 11/16/17 19:00 51/33 11/16/17 18:58 100 26 50 16/17 18:45 99 21 72/49 99 Mechanical Ventilator 50 16/17 18:30 82 24 52/27 99 Mechanical Ventilator 50 16/17 18:15 86 24 66/51 99 Mechanical Ventilator 50 16/17 18:00 100 27 66/51 99 Mechanical Ventilator 50 16/17 18:00 66/51 16/17 17:45 99 25 43/16 99 Mechanical Ventilator 50 16/17 17:30 100 24 80/39 99 Mechanical Ventilator 50 16/17 17:15 100 24 81/50 99 Mechanical Ventilator 50 16/17 17:00 99 24 66/55 99 Mechanical Ventilator 50 16/17 17:00 81/55 16/17 16:48 97 26 50 16/17 16:45 98 25 61/37 100 Mechanical Ventilator 50 16/17 16:30 95 25 61/32 100 Mechanical Ventilator 50 16/17 16:15 96 25 61/32 99 Mechanical Ventilator 50 16/17 16:13 97.1 16/17 16:12 57/34 16/17 16:00 97 16/17 16:00 97.0 97 26 65/41 99 Mechanical Ventilator 50 16/17 16:00 65/41 16/17 16:00 50 16/17 15:52 92 65/41 16/17 15:45 96 26 65/41 99 Mechanical Ventilator 50 1617 15:30 96 25 58/32 99 Mechanical Ventilator 50 16/17 15:15 96 25 56/15 99 Mechanical Ventilator 50 16/17 15:06 98 25 50 16/17 15:00 57/43 16/17 15:00 97 25 56/15 100 Mechanical Ventilator 50 16/17 14:45 97 25 56/43 100 Mechanical Ventilator 50 16/17 14:30 100 25 56/43 100 Mechanical Ventilator 50 16/17 14:15 100 25 69/43 100 Mechanical Ventilator 50 16/17 14:00 99 25 69/43 100 Mechanical Ventilator 50 16/17 14:00 69/43 16/17 13:45 99 23 58/45 100 Mechanical Ventilator 50 02/09/17 13:30 99 24 49/30 100 Mechanical Ventilator 50 02/09/17 13:15 97 24 49/30 97 Mechanical Ventilator 50 02/09/17 13:00 98 24 61/61 94 Mechanical Ventilator 50 02/09/17 13:00 61/31 02/09/17 12:45 95 24 81/18 100 Mechanical Ventilator 50 02/09/17 12:37 94 26 50 02/09/17 12:30 97.1 95 25 52/22 98 Mechanical Ventilator 50 02/09/17 12:15 95 24 83/48 100 Mechanical Ventilator 50 02/09/17 12:00 95 22 67/41 94 Mechanical Ventilator 50 02/09/17 12:00 67/41 02/09/17 12:00 50 02/09/17 12:00 160 02/09/17 11:45 148 23 49/27 97 Mechanical Ventilator 50 02/09/17 11:30 150 23 51/34 92 Mechanical Ventilator 50 02/09/17 11:20 56/37 02/09/17 11:15 148 24 58/38 99 Mechanical Ventilator 50 02/09/17 11:00 56/37 02/09/17 11:00 146 24 56/37 99 Mechanical Ventilator 50 02/09/17 10:52 122 24 50 02/09/17 10:45 122 25 72/28 99 Mechanical Ventilator 50 02/09/17 10:34 125 106/73 02/09/17 10:30 125 24 81/37 96 Mechanical Ventilator 50 02/09/17 10:15 122 24 106/73 97 Mechanical Ventilator 50 02/09/17 10:00 59/50 02/09/17 10:00 182 24 59/50 95 Mechanical Ventilator 50 02/09/17 09:45 181 24 59/50 97 Mechanical Ventilator 50 02/09/17 09:30 137 24 33/20 98 Mechanical Ventilator 50 02/09/17 09:15 121 24 33/20 100 Mechanical Ventilator 50 Labs: Labs Test 02/07/17 15:30 02/07/17 16:15 02/07/17 17:00 02/08/17 00:15 White Blood Count 29.1 K/UL (4.8-10.8) Red Blood Count 2.66 M/UL (4.20-5.40) Hemoglobin 8.7 G/DL (12.0-16.0) Hematocrit 28.7 % (37.0-47.0) Mean Corpuscular Volume 108 FL (80-99) Mean Corpuscular Hemoglobin 32.8 PG (27.0-31.0) Mean Corpuscular Hemoglobin Concent 30.4 G/DL (32.0-36.0) Red Cell Distribution Width 25.1 % (11.6-14.8) Platelet Count 39 K/UL (150-450) Mean Platelet Volume 10.0 FL (6.5-10.1) Neutrophils (%) (Auto) % (45.0-75.0) Lymphocytes (%) (Auto) % (20.0-45.0) Monocytes (%) (Auto) % (1.0-10.0) Eosinophils (%) (Auto) % (0.0-3.0) Basophils (%) (Auto) % (0.0-2.0) Differential Total Cells Counted 100 Neutrophils % (Manual) 90 % (45-75) Lymphocytes % (Manual) 5 % (20-45) Monocytes % (Manual) 2 % (1-10) Eosinophils % (Manual) 0 % (0-3) Basophils % (Manual) 0 % (0-2) Band Neutrophils 3 % (0-8) Platelet Estimate Decreased Platelet Morphology Normal Polychromasia 1+ Hypochromasia 2+ Anisocytosis 3+ Macrocytosis 1+ [place] Cells 1+ Sodium Level 143 MMOL/L (136-145) Potassium Level 4.5 MMOL/L (3.5-5.1) Chloride Level 111 MMOL/L (98-107) Carbon Dioxide Level 19 MMOL/L (21-32) Anion Gap 13 mmol/L (5-15) Blood Urea Nitrogen 28 mg/dL (7-18) Creatinine 0.9 MG/DL (0.55-1.30) Estimat Glomerular Filtration Rate mL/min (>60) Glucose Level 70 MG/DL (74-106) Calcium Level 6.6 MG/DL (8.5-10.1) Total Bilirubin 1.1 MG/DL (0.2-1.0) Direct Bilirubin 0.9 MG/DL (0.0-0.3) Aspartate Amino Transf (AST/SGOT) 106 U/L (15-37) Alanine Aminotransferase (ALT/SGPT) 25 U/L (12-78) Alkaline Phosphatase 375 U/L (46-116) Troponin I 0.015 ng/mL (0.000-0.056) Total Protein 5.2 G/DL (6.4-8.2) Albumin 1.0 G/DL (3.4-5.0) Globulin 4.2 g/dL Albumin/Globulin Ratio 0.2 (1.0-2.7) Arterial Blood pH 7.262 (7.350-7.450) 7.218 (7.350-7.450) Arterial Blood Partial Pressure CO2 43.8 mmHg (35.0-45.0) 41.9 mmHg (35.0-45.0) Arterial Blood Partial Pressure O2 78.1 mmHg (75.0-100.0) 337.9 mmHg (75.0-100.0) Arterial Blood HCO3 19.3 mmol/L (22.0-26.0) 16.7 mmol/L (22.0-26.0) Arterial Blood Oxygen Saturation 93.1 % (92.0-98.0) 99.3 % (92.0-98.0) Arterial Blood Base Excess -7.3 -10.4 Adan Test Positive Positive Urine Color Red Urine Appearance Cloudy Urine pH 6.5 (4.5-8.0) Urine Specific [place] 1.015 (1.005-1.035) Urine Protein 4+ (NEGATIVE) Urine Glucose (UA) Negative (NEGATIVE) Urine Ketones 2+ (NEGATIVE) Urine Occult Blood 5+ (NEGATIVE) Urine Nitrite Negative (NEGATIVE) Urine Bilirubin Negative (NEGATIVE) Urine Urobilinogen Normal MG/DL (0.0-1.0) Urine Leukocyte Esterase 3+ (NEGATIVE) Urine RBC Tntc /HPF (0 - 2) Urine WBC Tntc /HPF (0 - 2) Urine Squamous Epithelial Cells Few /LPF (NONE/OCC) Urine Bacteria Many /HPF (NONE) Test 02/08/17 04:20 02/08/17 08:05 02/08/17 10:30 02/08/17 13:15 White Blood Count 29.7 K/UL (4.8-10.8) Red Blood Count 2.83 M/UL (4.20-5.40) Hemoglobin 9.2 G/DL (12.0-16.0) Hematocrit 30.6 % (37.0-47.0) Mean Corpuscular Volume 108 FL (80-99) Mean Corpuscular Hemoglobin 32.6 PG (27.0-31.0) Mean Corpuscular Hemoglobin Concent 30.0 G/DL (32.0-36.0) Red Cell Distribution Width 26.0 % (11.6-14.8) Platelet Count 53 K/UL (150-450) Mean Platelet Volume 12.0 FL (6.5-10.1) Neutrophils (%) (Auto) % (45.0-75.0) Lymphocytes (%) (Auto) % (20.0-45.0) Monocytes (%) (Auto) % (1.0-10.0) Eosinophils (%) (Auto) % (0.0-3.0) Basophils (%) (Auto) % (0.0-2.0) Differential Total Cells Counted 100 Neutrophils % (Manual) 91 % (45-75) Lymphocytes % (Manual) 2 % (20-45) Monocytes % (Manual) 1 % (1-10) Eosinophils % (Manual) 0 % (0-3) Basophils % (Manual) 0 % (0-2) Band Neutrophils 6 % (0-8) Other Cell Type Pathologist comment Platelet Estimate Decreased Platelet Morphology Normal Polychromasia 1+ Hypochromasia 2+ Anisocytosis 3+ Macrocytosis 1+ [place] Cells Occasional Sodium Level 140 MMOL/L (136-145) Potassium Level 4.7 MMOL/L (3.5-5.1) Chloride Level 110 MMOL/L (98-107) Carbon Dioxide Level 18 MMOL/L (21-32) Anion Gap 12 mmol/L (5-15) Blood Urea Nitrogen 30 mg/dL (7-18) Creatinine 1.2 MG/DL (0.55-1.30) Estimat Glomerular Filtration Rate mL/min (>60) Glucose Level 169 MG/DL (74-106) Calcium Level 6.4 MG/DL (8.5-10.1) Total Bilirubin 0.9 MG/DL (0.2-1.0) Aspartate Amino Transf (AST/SGOT) 151 U/L (15-37) Alanine Aminotransferase (ALT/SGPT) 24 U/L (12-78) Alkaline Phosphatase 380 U/L (46-116) Total Protein 5.5 G/DL (6.4-8.2) Albumin 1.0 G/DL (3.4-5.0) Globulin 4.5 g/dL Albumin/Globulin Ratio 0.2 (1.0-2.7) Arterial Blood pH 7.197 (7.350-7.450) 7.150 (7.350-7.450) 7.232 (7.350-7.450) Arterial Blood Partial Pressure CO2 39.8 mmHg (35.0-45.0) 40.8 mmHg (35.0-45.0) 39.8 mmHg (35.0-45.0) Arterial Blood Partial Pressure O2 106.5 mmHg (75.0-100.0) 166.8 mmHg (75.0-100.0) 74.3 mmHg (75.0-100.0) Arterial Blood HCO3 15.1 mmol/L (22.0-26.0) 13.9 mmol/L (22.0-26.0) 16.4 mmol/L (22.0-26.0) Arterial Blood Oxygen Saturation 97.1 % (92.0-98.0) 98.5 % (92.0-98.0) 92.7 % (92.0-98.0) Arterial Blood Base Excess -12.2 -14.0 -10.4 Adan Test Positive Positive Positive Test 02/09/17 05:00 02/09/17 08:40 02/09/17 16:30 White Blood Count 16.2 K/UL (4.8-10.8) Red Blood Count 2.45 M/UL (4.20-5.40) Hemoglobin 8.4 G/DL (12.0-16.0) Hematocrit 27.2 % (37.0-47.0) Mean Corpuscular Volume 111 FL (80-99) Mean Corpuscular Hemoglobin 34.2 PG (27.0-31.0) Mean Corpuscular Hemoglobin Concent 30.8 G/DL (32.0-36.0) Red Cell Distribution Width 25.3 % (11.6-14.8) Platelet Count 17 K/UL (150-450) Mean Platelet Volume 12.7 FL (6.5-10.1) Neutrophils (%) (Auto) % (45.0-75.0) Lymphocytes (%) (Auto) % (20.0-45.0) Monocytes (%) (Auto) % (1.0-10.0) Eosinophils (%) (Auto) % (0.0-3.0) Basophils (%) (Auto) % (0.0-2.0) Differential Total Cells Counted 100 Neutrophils % (Manual) 93 % (45-75) Lymphocytes % (Manual) 4 % (20-45) Monocytes % (Manual) 2 % (1-10) Eosinophils % (Manual) 0 % (0-3) Basophils % (Manual) 0 % (0-2) Band Neutrophils 1 % (0-8) Nucleated Red Blood Cells 3 /100 WBC Platelet Estimate Decreased Platelet Morphology Normal Hypochromasia 2+ Poikilocytosis 1+ Anisocytosis 3+ Macrocytosis 2+ Sodium Level 137 MMOL/L (136-145) Potassium Level 4.5 MMOL/L (3.5-5.1) Chloride Level 107 MMOL/L (98-107) Carbon Dioxide Level 16 MMOL/L (21-32) Anion Gap 14 mmol/L (5-15) Blood Urea Nitrogen 33 mg/dL (7-18) Creatinine 1.5 MG/DL (0.55-1.30) Estimat Glomerular Filtration Rate mL/min (>60) Glucose Level 313 MG/DL (74-106) Calcium Level 5.7 MG/DL (8.5-10.1) Magnesium Level 1.7 MG/DL (1.8-2.4) Total Bilirubin 1.1 MG/DL (0.2-1.0) Direct Bilirubin 0.7 MG/DL (0.0-0.3) Aspartate Amino Transf (AST/SGOT) 600 U/L (15-37) Alanine Aminotransferase (ALT/SGPT) 53 U/L (12-78) Alkaline Phosphatase 281 U/L (46-116) Total Protein 4.2 G/DL (6.4-8.2) Albumin 0.7 G/DL (3.4-5.0) Globulin 3.5 g/dL Albumin/Globulin Ratio 0.2 (1.0-2.7) Arterial Blood pH 7.083 (7.350-7.450) Arterial Blood Partial Pressure CO2 40.7 mmHg (35.0-45.0) Arterial Blood Partial Pressure O2 83.7 mmHg (75.0-100.0) Arterial Blood HCO3 11.9 mmol/L (22.0-26.0) Arterial Blood Oxygen Saturation 92.7 % (92.0-98.0) Arterial Blood Base Excess -16.9 Adan Test Positive Vancomycin Level Trough 10.9 ug/mL (5.0-12.0) Objective: chronically ill poorly responsive ETT in place drips noted coarse breath sounds bilaterally with scattered rhonchi [id number] tachy without MRG NABS nontender no HSM mottled extremities some edema no response to pain Micro: Microbiology Date/Time Source Procedure Growth Status 02/07/17 15:45 Blood Blood Culture - Preliminary Resulted 02/07/17 15:30 Blood Blood Culture - Preliminary Resulted 02/07/17 17:00 Straight Cath Urine Culture - Preliminary Streptococcus Species YEAST Resulted Accucheck: 141 GAGAN NICHOLE Feb 10, 2017 09:02
--- NOTE | 2017-02-10 09:11 | General Progress Note ---
Assessment/Plan Problem List: (1) Neutrophilic leukemoid reaction ICD Codes: D72.823 - Leukemoid reaction SNOMED: 00090902 (2) Weakness ICD Codes: R53.1 - Weakness SNOMED: 65917532 (3) FTT (failure to thrive) in adult ICD Codes: R62.7 - Adult failure to thrive SNOMED: 028895443 (4) Hypoglycemia ICD Codes: E16.2 - Hypoglycemia, unspecified SNOMED: 628194212 (5) Shock ICD Codes: R57.9 - Shock, unspecified SNOMED: 33080663 (6) Acute renal failure ICD Codes: N17.9 - Acute kidney failure, unspecified SNOMED: 88666517 Status: deteriorating Assessment/Plan cont supportive caer iv abx vent resp care ngt feeds grim prognosis d/w sister SHREE and neodessa at length at length Pt is terminal. no chance of recovery recommended dnr and comfort measures family want to continue full aggressive care for now they will reconsider code status. currently remains full code Subjective ROS Limited/Unobtainable: Yes Constitutional: Reports: malaise, weakness HEENT: Reports: no symptoms Cardiovascular: Reports: edema Respiratory: Reports: shortness of breath Gastrointestinal/Abdominal: Reports: poor appetite Genitourinary: Reports: no symptoms Neurologic/Psychiatric: Reports: pre-existing deficit Endocrine: Reports: no symptoms Hematologic/Lymphatic: Reports: anemia Allergies: Coded Allergies: No Known Allergies (Unverified , 01/31/17) All Systems: reviewed and negative except above Subjective doing poorly. remains on max pressors. no urine output. difficult to obtain BP. on iv abx and ngt feeds. Objective Last 24 Hour Vital Signs Date Time Temp Pulse Resp B/P (MAP) Pulse Ox O2 Delivery O2 Flow Rate FiO2 02/10/17 08:00 100 02/10/17 07:03 82 25 100 02/10/17 07:00 80 25 53/37 53 Mechanical Ventilator 100 02/10/17 06:41 82 53/37 02/10/17 06:41 53/37 02/10/17 06:30 82 27 53/37 53 Mechanical Ventilator 100 02/10/17 06:00 53/37 02/10/17 06:00 83 24 53/37 53 Mechanical Ventilator 100 02/10/17 05:30 86 26 41/16 86 Mechanical Ventilator 100 02/10/17 05:11 87 26 100 02/10/17 05:00 87 26 74/24 86 Mechanical Ventilator 100 02/10/17 05:00 113/13 02/10/17 04:30 88 26 113/13 86 Mechanical Ventilator 100 02/10/17 04:00 100 02/10/17 04:00 97.3 89 26 56/39 81 Mechanical Ventilator 100 02/10/17 04:00 56/39 02/10/17 04:00 90 02/10/17 03:30 89 23 64/42 88 Mechanical Ventilator 100 02/10/17 03:11 90 42/20 02/10/17 03:00 42/20 02/10/17 03:00 90 26 42/20 81 Mechanical Ventilator 100 02/10/17 02:44 90 25 100 02/10/17 02:30 91 26 124/39 81 Mechanical Ventilator 100 02/10/17 02:02 84/36 02/10/17 02:00 91 26 55/37 81 Mechanical Ventilator 100 02/10/17 02:00 55/37 02/10/17 01:30 90 26 84/36 84 Mechanical Ventilator 100 02/10/17 01:00 92 24 92/50 79 Mechanical Ventilator 100 02/10/17 01:00 92/50 02/10/17 00:50 89 27 100 02/10/17 00:30 87 25 42/25 88 Mechanical Ventilator 100 02/10/17 00:00 96.7 143 25 42/25 87 Mechanical Ventilator 100 02/10/17 00:00 42/25 02/10/17 00:00 100 02/09/17 23:30 144 26 41/17 87 Mechanical Ventilator 100 02/09/17 23:29 115 42/30 02/09/17 23:04 115 27 100 02/09/17 23:00 135 25 42/30 89 Mechanical Ventilator 100 02/09/17 23:00 42/30 02/09/17 22:30 134 27 42/19 92 Mechanical Ventilator 50 02/09/17 22:00 138 27 93/51 100 Mechanical Ventilator 50 02/09/17 22:00 93/51 02/09/17 21:30 135 27 51/38 100 Mechanical Ventilator 50 02/09/17 21:16 84/53 02/09/17 21:02 139 25 50 11/16/17 21:00 94 27 84/53 98 Mechanical Ventilator 50 16/17 21:00 84/53 02/09/17 20:30 132 23 46/37 98 Mechanical Ventilator 50 16/17 20:28 98 66/42 02/09/17 20:00 66/42 16/17 20:00 96.7 97 24 66/42 98 Mechanical Ventilator 50 16/17 20:00 98 16/17 20:00 50 16/17 19:30 98 23 55/46 98 Mechanical Ventilator 50 16/17 19:00 99 23 53/27 98 Mechanical Ventilator 50 16/17 19:00 51/33 16/17 18:58 100 26 50 16/17 18:45 99 21 72/49 99 Mechanical Ventilator 50 16/17 18:30 82 24 52/27 99 Mechanical Ventilator 50 16/17 18:15 86 24 66/51 99 Mechanical Ventilator 50 1617 18:00 100 27 66/51 99 Mechanical Ventilator 50 16/17 18:00 66/51 16/17 17:45 99 25 43/16 99 Mechanical Ventilator 50 16/17 17:30 100 24 80/39 99 Mechanical Ventilator 50 16/17 17:15 100 24 81/50 99 Mechanical Ventilator 50 16/17 17:00 99 24 66/55 99 Mechanical Ventilator 50 16/17 17:00 81/55 16/17 16:48 97 26 50 16/17 16:45 98 25 61/37 100 Mechanical Ventilator 50 16/17 16:30 95 25 61/32 100 Mechanical Ventilator 50 16/17 16:15 96 25 61/32 99 Mechanical Ventilator 50 16/17 16:13 97.1 16/17 16:12 57/34 16/17 16:00 97 16/17 16:00 97.0 97 26 65/41 99 Mechanical Ventilator 50 16/17 16:00 65/41 16/17 16:00 50 16/17 15:52 92 65/41 16/17 15:45 96 26 65/41 99 Mechanical Ventilator 50 16/17 15:30 96 25 58/32 99 Mechanical Ventilator 50 11/16/17 15:15 96 25 56/15 99 Mechanical Ventilator 50 02/09/17 15:06 98 25 50 02/09/17 15:00 57/43 02/09/17 15:00 97 25 56/15 100 Mechanical Ventilator 50 02/09/17 14:45 97 25 56/43 100 Mechanical Ventilator 50 02/09/17 14:30 100 25 56/43 100 Mechanical Ventilator 50 02/09/17 14:15 100 25 69/43 100 Mechanical Ventilator 50 02/09/17 14:00 99 25 69/43 100 Mechanical Ventilator 50 02/09/17 14:00 69/43 02/09/17 13:45 99 23 58/45 100 Mechanical Ventilator 50 02/09/17 13:30 99 24 49/30 100 Mechanical Ventilator 50 02/09/17 13:15 97 24 49/30 97 Mechanical Ventilator 50 02/09/17 13:00 98 24 61/61 94 Mechanical Ventilator 50 02/09/17 13:00 61/31 02/09/17 12:45 95 24 81/18 100 Mechanical Ventilator 50 02/09/17 12:37 94 26 50 02/09/17 12:30 97.1 95 25 52/22 98 Mechanical Ventilator 50 02/09/17 12:15 95 24 83/48 100 Mechanical Ventilator 50 02/09/17 12:00 95 22 67/41 94 Mechanical Ventilator 50 02/09/17 12:00 67/41 02/09/17 12:00 50 02/09/17 12:00 160 02/09/17 11:45 148 23 49/27 97 Mechanical Ventilator 50 02/09/17 11:30 150 23 51/34 92 Mechanical Ventilator 50 02/09/17 11:20 56/37 02/09/17 11:15 148 24 58/38 99 Mechanical Ventilator 50 02/09/17 11:00 56/37 02/09/17 11:00 146 24 56/37 99 Mechanical Ventilator 50 02/09/17 10:52 122 24 50 02/09/17 10:45 122 25 72/28 99 Mechanical Ventilator 50 02/09/17 10:34 125 106/73 02/09/17 10:30 125 24 81/37 96 Mechanical Ventilator 50 02/09/17 10:15 122 24 106/73 97 Mechanical Ventilator 50 02/09/17 10:00 59/50 02/09/17 10:00 182 24 59/50 95 Mechanical Ventilator 50 02/09/17 09:45 181 24 59/50 97 Mechanical Ventilator 50 02/09/17 09:30 137 24 33/20 98 Mechanical Ventilator 50 02/09/17 09:15 121 24 33/20 100 Mechanical Ventilator 50 Laboratory Tests 02/09/17 16:30: Vancomycin Level Trough 10.9 Height (Feet): 5 Height (Inches): 1.00 Weight (Pounds): 146 Objective General Appearance: lethargic, cachetic, thin Neck: supple Cardiovascular: tachycardia Respiratory/Chest: rhonchi - bilaterally Abdomen: normal bowel sounds, non tender, soft, no organomegaly Edema: mild edema Neurologic: unresponsive HONG REYES Feb 10, 2017 09:11
[2017-02-10] MEDS: D5NS 1,000 ML IV SCH (10:00)
[2017-02-10] MEDS ORDERED: Morphine Sulfate 4mg/ml Inj IVP PRN (13:30)
--- NOTE | 2017-02-10 13:32 | Infectious Diseases Prog Note ---
"Assessment/Plan Assessment/Plan antibiotics : vancomycin iv, zosyn A 1. streptococcus | fungal UTI 2. pneumonia 3. metastatic bladder cancer 4. leucocytosis improving 5. thrombocytopenia 6. rectal VRE colonization 7. respiratory failure 8. gram variable carlos sepsis P 1. d/c vancomycin iv, zosyn 2. start daptomycin, meropenem, fluconazole 3. will follow up cultures 4. sputum culture Subjective ROS Limited/Unobtainable: Yes Allergies: Coded Allergies: No Known Allergies (Unverified , 01/31/17) Objective Vital Signs Last 24 Hour Vital Signs Date Time Temp Pulse Resp B/P (MAP) Pulse Ox O2 Delivery O2 Flow Rate FiO2 02/10/17 13:00 66 24 100 02/10/17 12:30 65 24 34/15 Mechanical Ventilator 100 02/10/17 12:00 94.4 64 24 34/14 Mechanical Ventilator 100 02/10/17 12:00 66 02/10/17 12:00 100 02/10/17 11:33 33/23 02/10/17 11:30 64 24 100 02/10/17 11:30 63 24 35/29 Mechanical Ventilator 100 02/10/17 11:00 65 24 33/23 Mechanical Ventilator 100 02/10/17 10:43 65 51/32 02/10/17 10:30 65 23 51/32 Mechanical Ventilator 100 02/10/17 10:00 64 24 Mechanical Ventilator 100 02/10/17 09:30 62 23 36/12 Mechanical Ventilator 100 02/10/17 09:29 62 24 100 02/10/17 09:00 65 24 33/14 Mechanical Ventilator 100 02/10/17 08:30 74 24 46/29 Mechanical Ventilator 100 02/10/17 08:00 79 23 60/29 Mechanical Ventilator 100 02/10/17 08:00 80 02/10/17 08:00 100 02/10/17 08:00 79 24 Mechanical Ventilator 100 02/10/17 07:30 79 23 60/29 Mechanical Ventilator 100 02/10/17 07:03 82 25 100 02/10/17 07:00 80 25 53/37 53 Mechanical Ventilator 100 02/10/17 06:41 82 53/37 02/10/17 06:41 53/37 02/10/17 06:30 82 27 53/37 53 Mechanical Ventilator 100 02/10/17 06:00 53/37 02/10/17 06:00 83 24 53/37 53 Mechanical Ventilator 100 02/10/17 05:30 86 26 41/16 86 Mechanical Ventilator 100 02/10/17 05:11 87 26 100 02/10/17 05:00 87 26 74/24 86 Mechanical Ventilator 100 02/10/17 05:00 113/13 02/10/17 04:30 88 26 113/13 86 Mechanical Ventilator 100 02/10/17 04:00 100 02/10/17 04:00 97.3 89 26 56/39 81 Mechanical Ventilator 100 02/10/17 04:00 56/39 02/10/17 04:00 90 02/10/17 03:30 89 23 64/42 88 Mechanical Ventilator 100 02/10/17 03:11 90 42/20 02/10/17 03:00 42/20 02/10/17 03:00 90 26 42/20 81 Mechanical Ventilator 100 02/10/17 02:44 90 25 100 02/10/17 02:30 91 26 124/39 81 Mechanical Ventilator 100 02/10/17 02:02 84/36 02/10/17 02:00 91 26 55/37 81 Mechanical Ventilator 100 02/10/17 02:00 55/37 02/10/17 01:30 90 26 84/36 84 Mechanical Ventilator 100 02/10/17 01:00 92 24 92/50 79 Mechanical Ventilator 100 02/10/17 01:00 92/50 02/10/17 00:50 89 27 100 02/10/17 00:30 87 25 42/25 88 Mechanical Ventilator 100 02/10/17 00:00 96.7 143 25 42/25 87 Mechanical Ventilator 100 02/10/17 00:00 42/25 02/10/17 00:00 100 02/09/17 23:30 144 26 41/17 87 Mechanical Ventilator 100 02/09/17 23:29 115 42/30 02/09/17 23:04 115 27 100 02/09/17 23:00 135 25 42/30 89 Mechanical Ventilator 100 02/09/17 23:00 42/30 02/09/17 22:30 134 27 42/19 92 Mechanical Ventilator 50 02/09/17 22:00 138 27 93/51 100 Mechanical Ventilator 50 02/09/17 22:00 93/51 02/09/17 21:30 135 27 51/38 100 Mechanical Ventilator 50 17 21:16 84/53 17 21:02 139 25 50 17 21:00 94 27 84/53 98 Mechanical Ventilator 50 17 21:00 84/53 17 20:30 132 23 46/37 98 Mechanical Ventilator 50 02/09/17 20:28 98 66/42 17 20:00 66/42 02/09/17 20:00 96.7 97 24 66/42 98 Mechanical Ventilator 50 17 20:00 98 1617 20:00 50 17 19:30 98 23 55/46 98 Mechanical Ventilator 50 02/09/17 19:00 99 23 53/27 98 Mechanical Ventilator 50 17 19:00 51/33 17 18:58 100 26 50 17 18:45 99 21 72/49 99 Mechanical Ventilator 50 17 18:30 82 24 52/27 99 Mechanical Ventilator 50 17 18:15 86 24 66/51 99 Mechanical Ventilator 50 17 18:00 100 27 66/51 99 Mechanical Ventilator 50 17 18:00 66/51 02/09/17 17:45 99 25 43/16 99 Mechanical Ventilator 50 16/17 17:30 100 24 80/39 99 Mechanical Ventilator 50 16/17 17:15 100 24 81/50 99 Mechanical Ventilator 50 02/09/17 17:00 99 24 66/55 99 Mechanical Ventilator 50 17 17:00 81/55 17 16:48 97 26 50 17 16:45 98 25 61/37 100 Mechanical Ventilator 50 16/17 16:30 95 25 61/32 100 Mechanical Ventilator 50 16/17 16:15 96 25 61/32 99 Mechanical Ventilator 50 16/17 16:13 97.1 16/17 16:12 57/34 02/09/17 16:00 97 16/17 16:00 97.0 97 26 65/41 99 Mechanical Ventilator 50 16/17 16:00 65/41 16/17 16:00 50 16/17 15:52 92 65/41 02/09/17 15:45 96 26 65/41 99 Mechanical Ventilator 50 02/09/17 15:30 96 25 58/32 99 Mechanical Ventilator 50 02/09/17 15:15 96 25 56/15 99 Mechanical Ventilator 50 02/09/17 15:06 98 25 50 02/09/17 15:00 57/43 02/09/17 15:00 97 25 56/15 100 Mechanical Ventilator 50 02/09/17 14:45 97 25 56/43 100 Mechanical Ventilator 50 02/09/17 14:30 100 25 56/43 100 Mechanical Ventilator 50 02/09/17 14:15 100 25 69/43 100 Mechanical Ventilator 50 02/09/17 14:00 99 25 69/43 100 Mechanical Ventilator 50 02/09/17 14:00 69/43 02/09/17 13:45 99 23 58/45 100 Mechanical Ventilator 50 02/09/17 13:30 99 24 49/30 100 Mechanical Ventilator 50 Height (Feet): 5 Height (Inches): 1.00 Weight (Pounds): 146 HEENT: other - intubated Respiratory/Chest: lungs clear Cardiovascular: normal rate, regular rhythm, no gallop/murmur Abdomen: soft, non tender Extremities: other - + edema, right IJ Microbiology Date/Time Source Procedure Growth Status 02/07/17 15:45 Blood Blood Culture - Preliminary Resulted 02/07/17 15:30 Blood Blood Culture - Preliminary Resulted 02/07/17 17:00 Straight Cath Urine Culture - Preliminary Streptococcus Species YEAST Resulted Laboratory Tests Test 02/09/17 16:30 Vancomycin Level Trough 10.9 ug/mL (5.0-12.0) KAMAR MOSLEY Feb 10, 2017 13:32"
[2017-02-10] MEDS ORDERED: Tubing IV Secondary IV ONE (14:15)
[2017-02-10] MEDS ORDERED: D5NS 1000ml IV ONE ×2 (14:15)
--- NOTE | 2017-02-10 14:41 | Emergency Room Report ---
History of Present Illness General Chief Complaint: Abnormal Labs Source: Patient, Medical Record, PMD Present Illness Allergies: Coded Allergies: No Known Allergies (Unverified , 01/31/17) Patient History Last Menstrual Period: NA Now: No Nursing Documentation-PMH Hx Cancer: Yes Hx Neurological Problems: Yes Hx Peripheral Neuropathy: Yes Hx Syncope: Yes Hx Weakness: Yes - Failure to thrive, Physical Exam Vital Signs Date Time Temp Pulse Resp B/P (MAP) Pulse Ox O2 Delivery O2 Flow Rate FiO2 01/31/17 20:30 97.3 94 18 126/96 100 Room Air 02/01/17 07:56 02/07/17 08:37 28 Medical Decision Making Diagnostic Impression: Primary Impression: Hypoglycemia Additional Impressions: Neutrophilic leukemoid reaction Weakness FTT (failure to thrive) in adult ER Course Called by global project manager to pronounce patient had been made DNR earlier Was intubated 2 days prior Was on comfort care All pressors stopped Per RN, asystole on monitor at 216pm I saw patient at 231. No palpable carotid or distal pulse Pupils fixed a dilated Asystole on bedside monitor No corneal reflexes Pronounced patient with patient's sister and niece present Informed Vernon Amaral and Ramirez Last Vital Signs Date Time Temp Pulse Resp B/P (MAP) Pulse Ox O2 Delivery O2 Flow Rate FiO2 02/10/17 13:00 66 24 100 02/10/17 13:00 30/12 Mechanical Ventilator 02/10/17 12:00 94.4 02/10/17 07:00 53 02/07/17 22:30 14.0 Disposition: Condition: Serious Referrals: NON PHYSICIAN (PCP) Patient Instructions: Smoking Cessation, Tips for Success, [id number], Failure to Thrive, Adult, [id number] JOELLE OLIVEIRA M.D. Feb 10, 2017 14:40
[2017-02-10] MEDS ORDERED: Fluconazole 100mg tab ORAL SCH (15:00)
[2017-02-10] MEDS ORDERED: Meropenem 500 MG in NS 55 ML IVPB SCH (15:00)
[2017-02-10] MEDS ORDERED: DAPTOmycin 250 MG in NS 55 ML IV SCH (15:00)
--- NOTE | 2017-02-10 17:18 | Geriatric Progress Note ---
Assessment/Plan Assessment/Plan encephalopathy lacks capacity rec dnr Discussed with: patient, family Subjective Interval Events 02/09/17 Mood/Memory: Reports: prior hx, anxiety Geriatric Geriatric Last 24 Hour Vital Signs Date Time Temp Pulse Resp B/P (MAP) Pulse Ox O2 Delivery O2 Flow Rate FiO2 02/10/17 13:00 66 24 100 02/10/17 13:00 60 24 30/12 Mechanical Ventilator 100 02/10/17 12:30 65 24 34/15 Mechanical Ventilator 100 02/10/17 12:00 94.4 64 24 34/14 Mechanical Ventilator 100 02/10/17 12:00 66 02/10/17 12:00 100 02/10/17 11:33 33/23 02/10/17 11:30 64 24 100 02/10/17 11:30 63 24 35/29 Mechanical Ventilator 100 02/10/17 11:00 65 24 33/23 Mechanical Ventilator 100 02/10/17 10:43 65 51/32 02/10/17 10:30 65 23 51/32 Mechanical Ventilator 100 02/10/17 10:00 64 24 Mechanical Ventilator 100 02/10/17 09:30 62 23 36/12 Mechanical Ventilator 100 02/10/17 09:29 62 24 100 02/10/17 09:00 65 24 33/14 Mechanical Ventilator 100 02/10/17 08:30 74 24 46/29 Mechanical Ventilator 100 02/10/17 08:00 79 23 60/29 Mechanical Ventilator 100 02/10/17 08:00 80 02/10/17 08:00 100 02/10/17 08:00 79 24 Mechanical Ventilator 100 02/10/17 07:30 79 23 60/29 Mechanical Ventilator 100 02/10/17 07:03 82 25 100 02/10/17 07:00 80 25 53/37 53 Mechanical Ventilator 100 02/10/17 06:41 82 53/37 02/10/17 06:41 53/37 02/10/17 06:30 82 27 53/37 53 Mechanical Ventilator 100 02/10/17 06:00 53/37 02/10/17 06:00 83 24 53/37 53 Mechanical Ventilator 100 02/10/17 05:30 86 26 41/16 86 Mechanical Ventilator 100 02/10/17 05:11 87 26 100 02/10/17 05:00 87 26 74/24 86 Mechanical Ventilator 100 02/10/17 05:00 113/13 02/10/17 04:30 88 26 113/13 86 Mechanical Ventilator 100 02/10/17 04:00 100 02/10/17 04:00 97.3 89 26 56/39 81 Mechanical Ventilator 100 02/10/17 04:00 56/39 02/10/17 04:00 90 02/10/17 03:30 89 23 64/42 88 Mechanical Ventilator 100 02/10/17 03:11 90 42/20 02/10/17 03:00 42/20 02/10/17 03:00 90 26 42/20 81 Mechanical Ventilator 100 02/10/17 02:44 90 25 100 02/10/17 02:30 91 26 124/39 81 Mechanical Ventilator 100 02/10/17 02:02 84/36 02/10/17 02:00 91 26 55/37 81 Mechanical Ventilator 100 02/10/17 02:00 55/37 02/10/17 01:30 90 26 84/36 84 Mechanical Ventilator 100 02/10/17 01:00 92 24 92/50 79 Mechanical Ventilator 100 02/10/17 01:00 92/50 02/10/17 00:50 89 27 100 02/10/17 00:30 87 25 42/25 88 Mechanical Ventilator 100 02/10/17 00:00 96.7 143 25 42/25 87 Mechanical Ventilator 100 02/10/17 00:00 42/25 02/10/17 00:00 100 02/09/17 23:30 144 26 41/17 87 Mechanical Ventilator 100 02/09/17 23:29 115 42/30 02/09/17 23:04 115 27 100 02/09/17 23:00 135 25 42/30 89 Mechanical Ventilator 100 02/09/17 23:00 42/30 02/09/17 22:30 134 27 42/19 92 Mechanical Ventilator 50 02/09/17 22:00 138 27 93/51 100 Mechanical Ventilator 50 02/09/17 22:00 93/51 02/09/17 21:30 135 27 51/38 100 Mechanical Ventilator 50 02/09/17 21:16 84/53 02/09/17 21:02 139 25 50 02/09/17 21:00 94 27 84/53 98 Mechanical Ventilator 50 02/09/17 21:00 84/53 02/09/17 20:30 132 23 46/37 98 Mechanical Ventilator 50 02/09/17 20:28 98 66/42 02/09/17 20:00 66/42 02/09/17 20:00 96.7 97 24 66/42 98 Mechanical Ventilator 50 02/09/17 20:00 98 02/09/17 20:00 50 02/09/17 19:30 98 23 55/46 98 Mechanical Ventilator 50 02/09/17 19:00 99 23 53/27 98 Mechanical Ventilator 50 02/09/17 19:00 51/33 02/09/17 18:58 100 26 50 02/09/17 18:45 99 21 72/49 99 Mechanical Ventilator 50 02/09/17 18:30 82 24 52/27 99 Mechanical Ventilator 50 02/09/17 18:15 86 24 66/51 99 Mechanical Ventilator 50 02/09/17 18:00 100 27 66/51 99 Mechanical Ventilator 50 02/09/17 18:00 66/51 02/09/17 17:45 99 25 43/16 99 Mechanical Ventilator 50 02/09/17 17:30 100 24 80/39 99 Mechanical Ventilator 50 Intake and Output 02/10/17 02/11/17 19:00 07:00 Intake Total 968.5 ml Output Total 305 ml Balance 663.5 ml IV Total 968.5 ml Output Urine Total 5 ml Gastric Drainage Total 300 ml Height (Feet): 5 Height (Inches): 1.00 Weight (Pounds): 146 General Appearance: cachetic, lethargic Neurologic: cerebellar normal Psychiatric Orientation: disoriented Affect: Radha Sam M.D. Feb 10, 2017 17:18
--- NOTE | 2017-02-10 17:35 | General Progress Note ---
Assessment/Plan Status: deteriorating Assessment/Plan the pt lacks capacity. I believe the pt's wish/right should be respected. The pt expressed DNR when she was alert and oriented in past. Subjective Date patient seen: Feb 10, 2017 Allergies: Coded Allergies: No Known Allergies (Unverified , 01/31/17) Subjective the pt is confused and lacks capacity, the pt is not able to understand process appreciate nor communicate appropriately. When the pt was lucid she expressed that she does not want DNR and she would prefer palliative care. Objective Last 24 Hour Vital Signs Date Time Temp Pulse Resp B/P (MAP) Pulse Ox O2 Delivery O2 Flow Rate FiO2 02/10/17 13:00 66 24 100 02/10/17 13:00 60 24 30/12 Mechanical Ventilator 100 02/10/17 12:30 65 24 34/15 Mechanical Ventilator 100 02/10/17 12:00 94.4 64 24 34/14 Mechanical Ventilator 100 02/10/17 12:00 66 02/10/17 12:00 100 02/10/17 11:33 33/23 02/10/17 11:30 64 24 100 02/10/17 11:30 63 24 35/29 Mechanical Ventilator 100 02/10/17 11:00 65 24 33/23 Mechanical Ventilator 100 02/10/17 10:43 65 51/32 02/10/17 10:30 65 23 51/32 Mechanical Ventilator 100 02/10/17 10:00 64 24 Mechanical Ventilator 100 02/10/17 09:30 62 23 36/12 Mechanical Ventilator 100 02/10/17 09:29 62 24 100 02/10/17 09:00 65 24 33/14 Mechanical Ventilator 100 02/10/17 08:30 74 24 46/29 Mechanical Ventilator 100 02/10/17 08:00 79 23 60/29 Mechanical Ventilator 100 02/10/17 08:00 80 02/10/17 08:00 100 02/10/17 08:00 79 24 Mechanical Ventilator 100 02/10/17 07:30 79 23 60/29 Mechanical Ventilator 100 02/10/17 07:03 82 25 100 02/10/17 07:00 80 25 53/37 53 Mechanical Ventilator 100 02/10/17 06:41 82 53/37 02/10/17 06:41 53/37 02/10/17 06:30 82 27 53/37 53 Mechanical Ventilator 100 02/10/17 06:00 53/37 02/10/17 06:00 83 24 53/37 53 Mechanical Ventilator 100 02/10/17 05:30 86 26 41/16 86 Mechanical Ventilator 100 02/10/17 05:11 87 26 100 02/10/17 05:00 87 26 74/24 86 Mechanical Ventilator 100 02/10/17 05:00 113/13 02/10/17 04:30 88 26 113/13 86 Mechanical Ventilator 100 02/10/17 04:00 100 02/10/17 04:00 97.3 89 26 56/39 81 Mechanical Ventilator 100 02/10/17 04:00 56/39 02/10/17 04:00 90 02/10/17 03:30 89 23 64/42 88 Mechanical Ventilator 100 02/10/17 03:11 90 42/20 02/10/17 03:00 42/20 02/10/17 03:00 90 26 42/20 81 Mechanical Ventilator 100 02/10/17 02:44 90 25 100 02/10/17 02:30 91 26 124/39 81 Mechanical Ventilator 100 02/10/17 02:02 84/36 02/10/17 02:00 91 26 55/37 81 Mechanical Ventilator 100 02/10/17 02:00 55/37 02/10/17 01:30 90 26 84/36 84 Mechanical Ventilator 100 02/10/17 01:00 92 24 92/50 79 Mechanical Ventilator 100 02/10/17 01:00 92/50 02/10/17 00:50 89 27 100 02/10/17 00:30 87 25 42/25 88 Mechanical Ventilator 100 02/10/17 00:00 96.7 143 25 42/25 87 Mechanical Ventilator 100 02/10/17 00:00 42/25 02/10/17 00:00 100 02/09/17 23:30 144 26 41/17 87 Mechanical Ventilator 100 02/09/17 23:29 115 42/30 02/09/17 23:04 115 27 100 02/09/17 23:00 135 25 42/30 89 Mechanical Ventilator 100 02/09/17 23:00 42/30 02/09/17 22:30 134 27 42/19 92 Mechanical Ventilator 50 02/09/17 22:00 138 27 93/51 100 Mechanical Ventilator 50 02/09/17 22:00 93/51 02/09/17 21:30 135 27 51/38 100 Mechanical Ventilator 50 02/09/17 21:16 84/53 02/09/17 21:02 139 25 50 02/09/17 21:00 94 27 84/53 98 Mechanical Ventilator 50 02/09/17 21:00 84/53 02/09/17 20:30 132 23 46/37 98 Mechanical Ventilator 50 02/09/17 20:28 98 66/42 02/09/17 20:00 66/42 02/09/17 20:00 96.7 97 24 66/42 98 Mechanical Ventilator 50 02/09/17 20:00 98 02/09/17 20:00 50 02/09/17 19:30 98 23 55/46 98 Mechanical Ventilator 50 02/09/17 19:00 99 23 53/27 98 Mechanical Ventilator 50 02/09/17 19:00 51/33 02/09/17 18:58 100 26 50 02/09/17 18:45 99 21 72/49 99 Mechanical Ventilator 50 02/09/17 18:30 82 24 52/27 99 Mechanical Ventilator 50 02/09/17 18:15 86 24 66/51 99 Mechanical Ventilator 50 02/09/17 18:00 100 27 66/51 99 Mechanical Ventilator 50 02/09/17 18:00 66/51 02/09/17 17:45 99 25 43/16 99 Mechanical Ventilator 50 Intake and Output 02/10/17 02/11/17 19:00 07:00 Intake Total 968.5 ml Output Total 305 ml Balance 663.5 ml IV Total 968.5 ml Output Urine Total 5 ml Gastric Drainage Total 300 ml Height (Feet): 5 Height (Inches): 1.00 Weight (Pounds): 146 General Appearance: lethargic, confused, cachetic Radha Lester M.D. Feb 10, 2017 17:35
--- NOTE | 2017-02-11 01:17 | Progress Note ---
DATE: 02/10/2017 CARDIOLOGY PROGRESS NOTE SUBJECTIVE: The patient's condition remains critical with grave prognosis. Family members are at bedside. Numerous conversations have been undertaken with both the nursing and physician involved with the patient's care. However, the patient's sister and niece do not seem to fully comprehend the gravity of the patient's condition. The patient is on 2 pressors. Max dose with blood pressure barely in the 50s systolic range. Monitored rhythm, atrial fibrillation and sinus tachyarrhythmia. Heart rate 110 to 150. Respiratory rate 22 to 28. No fevers. The patient is unresponsive. OBJECTIVE: ABDOMEN: Distended. Feedings on hold, as they are not being observed. HEENT: Oropharynx orally intubated. LUNGS: With bilateral breath sounds and few rhonchi. CARDIAC: Irregularly irregular rhythm. Rapid rate. Normal S1 and S2. EXTREMITIES: With 2+ dependent edema. The heels show some even though they are raised from the bed mattress. LABORATORY DATA: Cultures reviewed. Laboratories from 02/09/2017 noted. IMPRESSION: 1. Multiorgan system failure. 2. Sepsis with shock. 3. Metastatic carcinoma. 4. Respiratory failure. PLAN: 1. Continue antimicrobials. 2. Ventilator support. 3. Pressors and comfort measures as able. 4. We will continue to support family members and educate regarding conditions and continue open communication for them to consider hospice care. Manuel Francisco M.D. DR: MARK JOB#: [id number] CC:
--- NOTE | 2017-02-13 10:50 | Cardiology Report ---
APPROVED REPORT EXAM: Two-dimensional and M-mode echocardiogram with Doppler and color Doppler. INDICATION Atrial Fibrillation M-Mode DIMENSIONS IVSd0.8 (0.7-1.1cm)Left Atrium (MM)2.2 (1.6-4.0cm) LVDd3.5 (3.5-5.6cm)Aortic Root2.5 (2.0-3.7cm) PWd0.7 (0.7-1.1cm)Aortic Cusp Exc.1.5 (1.5-2.0cm) LVDs2.5 (2.5-4.0cm) PWs1.1 cm Technically difficult study due to poor parasternal acoustical windows and patient on ventilator. Study quality precludes accurate assessment of regional wall motion. Normal left ventricular chamber size. Grossly normal systolic function and wall motion to extent visualized. Left ventricular ejection fraction estimated to be grossly normal. No evidence of left ventricular hypertrophy. Large pleural effusion. All other cardiac chamber sizes are within normal limits. Mild focal aortic valve sclerosis with adequate cusp excursion. Mildly thickened mitral valve leaflets with normal excursion. Mild mitral annulus and aortic root calcification. Pulmonic valve not well visualized. Normal tricuspid valve structure. IVC dilated at 2.1 cm and non-collapsing with respiration suggestive of increased RA pressure. A color flow and spectral Doppler study was performed and revealed: No aortic insufficiency. Mild mitral regurgitation. Mitral diastolic velocities suggest reduced left ventricular relaxation c/w diastolic dysfunction (Grade I). Moderate tricuspid regurgitation. Tricuspid systolic velocities suggests peak right ventricular systolic pressure of 61 mmHg, consistent with severe pulmonary hypertension. No pulmonic regurgitation present.
--- NOTE | 2017-02-18 06:26 | Discharge Summary ---
Discharge Summary Hospital Course Date of Admission Jan 31, 2017 at 21:19 Date of Discharge Feb 10, 2017 at 14:16 Admitting Diagnosis FAILURE TO THRIVE KATIE Orlando is a 71 year old female who was admitted on Jan 31, 2017 at 21:19 for Failure To Thrive Hospital Course Addendum: Patient had poor prognosis and recommended comfort care with discharge to SNF, however, family decided they want full aggressive treatment, code status full code. Patient continued to decline, on 02/10/17, family eventually decided to place patient on DNR, and was started on comfort care. She eventually Discharge Discharge Disposition Patient Discharge Diagnoses: Valerie Tomas NP Feb 18, 2017 06:26
== END 2017-02-10 14:16 | disposition expired | DRG 871 ==
LOC: EDBD 20:35 → EMR 21:07 → 2E 21:19 → EDBEDREQSVC 21:29 → EDBEDREQ 22:02 → 2E 02-03 15:52 → ICU 02-07 16:15
DX: A41.9 Sepsis, unspecified organism (principal); E43 Unspecified severe protein-calorie malnutrition; R57.1 Hypovolemic shock; J96.00 Acute respiratory failure, unspecified whether with hypoxia or hypercapnia; J18.9 Pneumonia, unspecified organism; N17.9 Acute kidney failure, unspecified; G92 Toxic encephalopathy; D69.6 Thrombocytopenia, unspecified; N39.0 Urinary tract infection, site not specified; R65.21 Severe sepsis with septic shock; E87.1 Hypo-osmolality and hyponatremia; D64.9 Anemia, unspecified; C67.9 Malignant neoplasm of bladder, unspecified; E16.1 Other hypoglycemia; Z68.22 Body mass index [BMI] 22.0-22.9, adult; Z86.718 Personal history of other venous thrombosis and embolism; Z79.01 Long term (current) use of anticoagulants; D72.823 Leukemoid reaction; G62.9 Polyneuropathy, unspecified; Z66 Do not resuscitate; F32.9 Major depressive disorder, single episode, unspecified; R13.10 Dysphagia, unspecified; R62.7 Adult failure to thrive; Z85.6 Personal history of leukemia
CPT/HCPCS: 36415; 36600; 71010; 74000; 80053; 80202; 81001; 81003; 82248; 82550; 82553; 82803; 82962; 83735; 84484; 85007; 85025; 87040; 87070; 87081; 87086; 87181; 87205; 92950; 93005; 93306; 94002; 94003; 94640; 94660; 94664; 94760; 99285; J2370; J7620